=== PATIENT | female | born 1930 | race Two or more races ===

== ENCOUNTER 2018-01-06 11:06 | Inpatient (IN) | payer MEDICARE, MEDICAID ==
[2018-01-06] VITALS (8 sets, daily range): BP systolic 112–162; BP diastolic 43–102
[~2018-01-06] VITALS: Ht 157.5 cm; Wt 77.1 kg
[~2018-01-06 11:06] MED LIST: ACTONEL35 MG PO; ARICEPT10 MG PO; ASPIRIN-LOW81 MG PO; DIOVAN320 MG PO; NORVASC2.5 MG PO; PAROXETINE HCL20 MG PO; PRILOSEC20 MG PO; PRIMIDONE50 MG PO; TENORMIN50 MG PO; [UNRECOGNIZED DRUG - OTHER] PO
[2018-01-06] MEDS ORDERED: PRIMIDONE50 MG PO (11:13)
[2018-01-06] MEDS ORDERED: NORVASC2.5 MG ORAL (11:13)
[2018-01-06] MEDS ORDERED: ASPIR 8181 MG ORAL (11:13)
[2018-01-06] MEDS ORDERED: [UNRECOGNIZED DRUG - OTHER] PO (11:13)
[2018-01-06] MEDS ORDERED: DIOVAN320 MG ORAL (11:13)
[2018-01-06] MEDS ORDERED: ACTONEL35 MG ORAL (11:13)
[2018-01-06] MEDS ORDERED: PRILOSEC OTC20 MG ORAL (11:13)
[2018-01-06] MEDS ORDERED: ATENOLOL50 MG ORAL (11:13)
[2018-01-06] MEDS ORDERED: SYNTHROID50 MCG ORAL (11:13)
[2018-01-06] MEDS ORDERED: ARICEPT10 MG ORAL (11:13)
[2018-01-06] MEDS ORDERED: PAXIL20 MG ORAL (11:13)
[2018-01-06] MEDS ORDERED: Ipratropium 0.02% Inh Soln 2.5ml UD HHN ONE (11:15)
[2018-01-06] MEDS ORDERED: Solu-MEDROL 125mg Inj IVP ONE (11:15)
[2018-01-06] MEDS: Albuterol ud Inhalation HHN SCH ×5 (11:40→16:30)
--- NOTE | 2018-01-06 11:45 | Emergency Room Report ---
History of Present Illness General Chief Complaint: Dyspnea/Respdistress Source: Family Member, EMS Present Illness HPI The patient presents with dyspnea. She was in an adult daycare center and they heard wheezing. Paramedics started breathing treatments for his acute here all wheezing from the bedside. The patient has Alzheimer's disease. She denies any chest pain at this time. There is a language barrier. They're uncertain whether she has a history of congestive heart failure. According to the manager credit collections she has no fever or vomiting. History is limited because of functional decline. Family state she had an Echo last month which revealed no decreased cardiac function. Allergies: Coded Allergies: No Known Allergies (Unverified , 01/06/18) Patient History Limited by: medical condition Past Medical History: see triage record Social History: Denies: smoking Social History Narrative with family - assisted living Last Menstrual Period: Unk Reviewed Nursing Documentation: PMH: Agreed; PSxH: Agreed Nursing Documentation-PMH Hx Hypertension: Yes Hx Asthma: Yes Review of Systems All Other Systems: limited Physical Exam Vital Signs Date Time Temp Pulse Resp B/P (MAP) Pulse Ox O2 Delivery O2 Flow Rate FiO2 01/06/18 11:04 98.8 80 20 155/66 94 Room Air 98.8 01/06/18 11:06 2.0 Sp02 EP Interpretation: reviewed, normal General Appearance: no apparent distress, alert, Chronically Ill Head: normocephalic, atraumatic Eyes: bilateral eye normal inspection, bilateral eye PERRL ENT: moist mucus membranes Neck: supple Respiratory: respiratory distress - mild, accessory muscle use, wheezing, expiration, inspiration Cardiovascular #1: regular rate, rhythm Cardiovascular #2: 2+ radial (R) Gastrointestinal: normal inspection, non tender, no mass, non-distended, decreased bowel sounds Musculoskeletal: back normal, normal range of motion Neurologic: alert, motor strength/tone normal - generalized weakness, but accurate with hands, sensory intact Psychiatric: depressed affect Skin: normal inspection, warm/dry Procedures Critical Care Time Critical Care Time Total Critical Care Time: 45 min bedside evaluation and treatment excludes procedures (EKG). Reason for critical care: status asthmaticus and reassessment of respiratory status Possible complications: hypotension, hypertension, PR, shock, arrhythmias, metabolic acidosis, end organ damage, respiratory failure. Interventions: solumedrol, breathing treatments, BIPAP, determination level of care Course: Patient with dyspnea and wheezing. Aggressive treatment with solumedrol and breathing treatments. Still with resp distress. BIPAP begun. Some improvement. Magnesium given. Antibiotics begun. Discussion with family regarding level of care. ABG adequate for continued treatment. Consultations: nursing staff, EMS, family, RT, admitting MD Performed by: Dr. Mccrary Tolerated well condition = serious Medical Decision Making Diagnostic Impression: Primary Impression: Status asthmaticus Qualified Codes: J45.52 - Severe persistent asthma with status asthmaticus Additional Impressions: Dyspnea Qualified Codes: R06.03 - Acute respiratory distress Bronchospasm RLL pneumonia Qualified Codes: J18.1 - Lobar pneumonia, unspecified organism Hyponatremia UTI (urinary tract infection) Qualified Codes: N39.0 - Urinary tract infection, site not specified ER Course Patient presents with dyspnea and audible wheezing. Differential includes pneumonia, bronchospasm, cardiac asthma amongst others. Evaluation will be with EKG, chest x-ray and labs. The patient will be treated with a breathing treatments, Solu-Medrol. Initial EKG in the field did not show STEMI. Concern over possible cardiac asthma, judicious fluids. The patient received aggressive breathing treatments here. She still is working hard to breathe with wheezing. Because of this BiPAP is started. Antibiotics have been given also. EKG without injury. CXR with increased de oliveira c/w pneumonitis vs RLL infiltrate. Antibiotics begun. Labs with elevated WBC (min). Low sodium. Normal troponin, and lactic acid. BNP is minimally elevated. Patient improved on BIPAP now without respiratory distress. Magnesium ordered. ABG with good compensation. Discussed level of care with family as well as results. Admit SDU, Dr. Ruiz. Laboratory Tests Test 01/06/18 11:20 01/06/18 14:02 01/06/18 14:47 White Blood Count 11.1 K/UL (4.8-10.8) H Red Blood Count 3.96 M/UL (4.20-5.40) L Hemoglobin 10.7 G/DL (12.0-16.0) L Hematocrit 32.5 % (37.0-47.0) L Mean Corpuscular Volume 82 FL (80-99) Mean Corpuscular Hemoglobin 27.1 PG (27.0-31.0) Mean Corpuscular Hemoglobin Concent 33.0 G/DL (32.0-36.0) Red Cell Distribution Width 12.5 % (11.6-14.8) Platelet Count 66 K/UL (150-450) L Mean Platelet Volume 8.2 FL (6.5-10.1) Neutrophils (%) (Auto) % (45.0-75.0) Lymphocytes (%) (Auto) % (20.0-45.0) Monocytes (%) (Auto) % (1.0-10.0) Eosinophils (%) (Auto) % (0.0-3.0) Basophils (%) (Auto) % (0.0-2.0) Differential Total Cells Counted 100 Neutrophils % (Manual) 58 % (45-75) Lymphocytes % (Manual) 29 % (20-45) Monocytes % (Manual) 9 % (1-10) Eosinophils % (Manual) 4 % (0-3) H Basophils % (Manual) 0 % (0-2) Band Neutrophils 0 % (0-8) Platelet Estimate Decreased L Platelet Morphology Normal Hypochromasia 1+ Prothrombin Time 9.9 SEC (9.30-11.50) Prothrombin Time INR 1.0 (0.9-1.1) PTT 26 SEC (23-33) Sodium Level 129 MMOL/L (136-145) L Potassium Level 4.5 MMOL/L (3.5-5.1) Chloride Level 95 MMOL/L (98-107) L Carbon Dioxide Level 29 MMOL/L (21-32) Anion Gap 5 mmol/L (5-15) Blood Urea Nitrogen 20 mg/dL (7-18) H Creatinine 1.0 MG/DL (0.55-1.30) Estimate Glomerular Filtration Rate mL/min (>60) Glucose Level 173 MG/DL (74-106) H Lactic Acid Level 1.80 mmol/L (0.66-2.22) Calcium Level 8.8 MG/DL (8.5-10.1) Magnesium Level 1.8 MG/DL (1.5-2.4) Total Bilirubin 0.2 MG/DL (0.2-1.0) Aspartate Amino Transferase (AST) 17 U/L (15-37) Alanine Aminotransferase (ALT) 24 U/L (12-78) Alkaline Phosphatase 57 U/L (46-116) Total Creatine Kinase 49 U/L (26-308) Troponin I 0.000 ng/mL (0.000-0.056) Pro-B-Type Natriuretic Peptide 620 pg/mL (0-125) H Total Protein 8.0 G/DL (6.4-8.2) Albumin 3.5 G/DL (3.4-5.0) Globulin 4.5 g/dL Albumin/Globulin Ratio 0.8 (1.0-2.7) L Arterial Blood pH 7.367 (7.350-7.450) Arterial Blood Partial Pressure CO2 38.9 mmHg (35.0-45.0) Arterial Blood Partial Pressure O2 109.9 mmHg (75.0-100.0) H Arterial Blood HCO3 21.9 mmol/L (22.0-26.0) L Arterial Blood Oxygen Saturation 96.8 % (92.0-98.0) Arterial Blood Base Excess 3.2 Khari Test Positive Urine Color Pale yellow Urine Appearance Slightly cloudy Urine pH 5 (4.5-8.0) Urine Specific [place] 1.015 (1.005-1.035) Urine Protein 2+ (NEGATIVE) H Urine Glucose (UA) Negative (NEGATIVE) Urine Ketones Negative (NEGATIVE) Urine Occult Blood 2+ (NEGATIVE) H Urine Nitrite Negative (NEGATIVE) Urine Bilirubin Negative (NEGATIVE) Urine Urobilinogen Normal MG/DL (0.0-1.0) Urine Leukocyte Esterase 2+ (NEGATIVE) H Urine RBC 2-4 /HPF (0 - 2) H Urine WBC 10-15 /HPF (0 - 2) H Urine Squamous Epithelial Cells Many /LPF (NONE/OCC) H Urine Bacteria Many /HPF (NONE) H EKG Diagnostic Results Rate: normal Rhythm: NSR ST Segments: no acute changes - Nonspecific ST-T wave changes suggestive of ischemia no ST elevation meeting STEMI criteria Rhythm Strip Diag. Results EP Interpretation: yes Rhythm: NSR, no PVC's, no ectopy Chest X-Ray Diagnostic Results Chest X-Ray Diagnostic Results : Chest X-Ray Ordered: Yes # of Views/Limited/Complete: 1 View EP Interpretation: Yes Interpretation: no effusion, no pneumothorax, other - RLL infiltrate Impression: Other Electronically Signed by: Moise Mccrary MD Last Vital Signs Date Time Temp Pulse Resp B/P (MAP) Pulse Ox O2 Delivery O2 Flow Rate FiO2 01/06/18 17:10 88 25 99 Nasal 30 01/06/18 17:03 98.1 136/47 15.0 Status: improved Disposition: ADMITTED INPATIENT Condition: Serious Moise Mccrary M.D. January 06, 2018 11:45
[2018-01-06 11:50] LABS: HEMATOCRIT 32.5 % (37.0-47.0); HEMOGLOBIN 10.7 G/DL (12.0-16.0); MEAN CORPUSCULAR VOLUME 82 FL (80-99); PLATELET COUNT 66 K/UL (150-450); RED BLOOD COUNT 3.96 M/UL (4.20-5.40); RED CELL DISTRIBUTION WIDTH 12.5 % (11.6-14.8); WHITE BLOOD COUNT 11.1 K/UL (4.8-10.8)
[2018-01-06 11:56] LABS: ANION GAP 5 mmol/L (5-15); BLOOD UREA NITROGEN 20 mg/dL (7-18); CALCIUM 8.8 MG/DL (8.5-10.1); CARBON DIOXIDE 29 MMOL/L (21-32); CHLORIDE 95 MMOL/L (98-107); POTASSIUM 4.5 MMOL/L (3.5-5.1); SODIUM 129 MMOL/L (136-145)
[2018-01-06 12:12] LABS: ALANINE AMINOTRANSFERASE 24 U/L (12-78); ALBUMIN 3.5 G/DL (3.4-5.0); ALBUMIN/GLOBULIN RATIO 0.8 (1.0-2.7); ALKALINE PHOSPHATASE 57 U/L (46-116); ASPARTATE AMINO TRANSFERASE 17 U/L (15-37); BILIRUBIN,TOTAL 0.2 MG/DL (0.2-1.0); CREATINE KINASE 49 U/L (26-308)
[2018-01-06] MEDS ORDERED: cefTRIAXone 1 GM in NS 55 ML IVPB ONE (12:30)
[2018-01-06 15:02] LABS: BILIRUBIN, URINE NEGATIVE (NEGATIVE); COLOR,URINE PALE YELLOW; GLUCOSE, URINE (UA) NEGATIVE (NEGATIVE); KETONES,URINE NEGATIVE (NEGATIVE); LEUKOCYTE ESTERASE ,URINE 2+ (NEGATIVE); NITRITE,URINE NEGATIVE (NEGATIVE); PH,URINE 5 (4.5-8.0); PROTEIN,URINE 2+ (NEGATIVE); UROBILINOGEN,URINE NORMAL MG/DL (0.0-1.0)
[2018-01-06 15:16] LABS: APPEARANCE,URINE SLIGHTLY CLOUDY
[2018-01-06] MEDS ORDERED: LORazepam Inj 2mg/ml 1ml IV PRN (16:00)
[2018-01-06] MEDS ORDERED: Nitroglycerin Subl 0.4mg tab SL PRN (16:00)
[2018-01-06] MEDS ORDERED: Promethazine/Codeine 5ml UD ORAL PRN (16:00)
[2018-01-06] MEDS: Ipratropium 0.02% Inh Soln 2.5ml UD HHN SCH ×2 (16:15→16:30)
[2018-01-06] MEDS: Solu-MEDROL 125mg Inj IV SCH (18:00)
[2018-01-06] MEDS: Heparin 5000 units/ml inj SUBQ SCH (20:35)
[2018-01-07] VITALS (7 sets, daily range): BP systolic 100–158; BP diastolic 51–71
[2018-01-07] MEDS: Solu-MEDROL 125mg Inj IV SCH ×4 (00:36→18:21)
[2018-01-07 06:12] LABS: HEMATOCRIT 29.4 % (37.0-47.0); HEMOGLOBIN 9.8 G/DL (12.0-16.0); MEAN CORPUSCULAR VOLUME 81 FL (80-99); PLATELET COUNT 74 K/UL (150-450); RED BLOOD COUNT 3.62 M/UL (4.20-5.40); RED CELL DISTRIBUTION WIDTH 12.6 % (11.6-14.8); WHITE BLOOD COUNT 13.9 K/UL (4.8-10.8)
[2018-01-07 06:21] LABS: ALANINE AMINOTRANSFERASE 22 U/L (12-78); ALBUMIN 3.3 G/DL (3.4-5.0); ALBUMIN/GLOBULIN RATIO 0.8 (1.0-2.7); ALKALINE PHOSPHATASE 51 U/L (46-116); ANION GAP 4 mmol/L (5-15); ASPARTATE AMINO TRANSFERASE 21 U/L (15-37); BILIRUBIN,TOTAL 0.2 MG/DL (0.2-1.0); BLOOD UREA NITROGEN 22 mg/dL (7-18); CALCIUM 8.6 MG/DL (8.5-10.1); CARBON DIOXIDE 27 MMOL/L (21-32); CHLORIDE 97 MMOL/L (98-107); CREATININE 1.1 MG/DL (0.55-1.30); SODIUM 129 MMOL/L (136-145)
[2018-01-07 06:28] LABS: POTASSIUM 5.9 MMOL/L (3.5-5.1)
[2018-01-07] MEDS: Heparin 5000 units/ml inj SUBQ SCH ×2 (09:00→21:00)
[2018-01-07] MEDS ORDERED: Sodium Polystyrene Sulfonate 15gm Powder ORAL SCH (09:30)
[2018-01-07] MEDS: PARoxetine 20mg tab ORAL SCH (09:52)
[2018-01-07] MEDS: Donepezil 10mg tab ORAL SCH (09:52)
[2018-01-07] MEDS: Albuterol/Ipratropium 3ml neb HHN PRN ×2 (10:47→14:59)
--- NOTE | 2018-01-07 11:59 | Consultation ---
History of Present Illness General Date patient seen: January 07, 2018 Chief Complaint: Dyspnea/Respdistress Reason for Consultation: respiratory failure Present Illness HPI 87 year old female with hx of asthma, Hypertension, depression, dementia presented to ER with CC of dyspnea for a few days She was in an adult daycare center and they heard wheezing. Paramedics started breathing treatments. According to the occupational therapist's assistant she has no fever or vomiting. She was in respiratory failure on arrival and was started on BIPAP in ER. She received abx and steroids and was transferred to [facility] for further treatment. Allergies: Coded Allergies: No Known Allergies (Unverified , 01/06/18) Medication History Scheduled Amlodipine Besylate (Norvasc), 2.5 MG ORAL DAILY, (Reported) Aspirin* (Aspir 81*), 81 MG ORAL DAILY, (Reported) Atenolol* (Tenormin*), 50 MG ORAL DAILY, (Reported) Donepezil Hcl* (Aricept*), 10 MG ORAL DAILY, (Reported) Levothyroxine Sodium (Synthroid), 50 MCG ORAL DAILY, (Reported) Omeprazole Magnesium (Prilosec Otc), 30 MG ORAL DAILY, (Reported) Paroxetine Hcl* (Paxil*), 20 MG ORAL DAILY, (Reported) Primidone* (Mysoline*), 50 MG PO DAILY, (Reported) Risedronate Sodium (Actonel), 35 MG ORAL ONCE A WEEK, (Reported) Valsartan (Diovan), 320 MG ORAL DAILY, (Reported) [Ditopan Xl], 10 MG PO BEDTIME, (Reported) Patient History Healthcare decision maker Kristan Bolanos Resuscitation status Full Code Advanced Directive on File No Past Medical/Surgical History Past Medical/Surgical History: (1) History of asthma (2) Hypertension (3) Dementia (4) Depression Review of Systems All Other Systems: negative except mentioned in HPI Physical Exam General Appearance: WD/WN Lines, tubes and drains: peripheral HEENT: normocephalic, atraumatic Neck: non-tender, normal alignment Respiratory/Chest: chest wall non-tender, lungs clear Breasts: no masses Cardiovascular/Chest: normal peripheral pulses Abdomen: non tender Genitourinary/Rectal: normal genital exam Extremities: normal range of motion Last 24 Hour Vital Signs Date Time Temp Pulse Resp B/P (MAP) Pulse Ox O2 Delivery O2 Flow Rate FiO2 01/07/18 10:57 96 21 99 Nasal Cannula 2.0 28 01/07/18 10:47 63 21 99 Nasal Cannula 2.0 28 01/07/18 10:45 63 21 98 Facial 30 01/07/18 09:53 78 120/55 01/07/18 09:00 87 120/66 01/07/18 08:37 80 24 99 Facial 30 01/07/18 08:00 97.7 67 21 100/51 100 Bi-pap 30 97.7 25 01/07/18 08:00 61 01/07/18 07:05 78 16 97 Facial 30 01/07/18 05:25 81 22 98 Facial 30 01/07/18 04:00 98.1 79 20 137/66 98 Bi-pap 30 98.1 25 01/07/18 04:00 66 01/07/18 03:02 88 17 97 Facial 30 01/07/18 00:57 81 32 97 Facial 30 01/07/18 00:00 98.4 79 20 112/63 99 Bi-pap 30 98.4 22 01/07/18 00:00 61 01/06/18 21:19 162/94 01/06/18 21:00 142/85 01/06/18 20:00 77 01/06/18 20:00 97.9 77 20 162/98 97 Bi-pap 30 97.9 01/06/18 17:10 88 25 99 Nasal 30 01/06/18 17:03 98.1 82 22 136/47 100 Non-Rebreather 15.0 01/06/18 16:49 97.2 88 22 146/61 99 Bi-pap 30 97.2 01/06/18 15:40 98.2 84 20 132/45 99 Bi-pap 2.0 30 98.2 01/06/18 15:01 83 18 98 Nasal 30 01/06/18 14:00 97 20 112/51 99 Bi-pap 2.0 30 01/06/18 13:57 30 01/06/18 13:53 99 21 99 Nasal 30 01/06/18 13:53 99 21 Bi-pap 30 01/06/18 13:09 99 27 99 Nasal Cannula 2.0 28 01/06/18 13:00 98.0 96 19 138/43 99 Nasal Cannula 2.0 28 98.0 01/06/18 12:35 79 19 99 Nasal Cannula 2.0 28 01/06/18 12:32 79 19 99 Nasal Cannula 2.0 28 01/06/18 12:05 80 23 100 Nasal Cannula 2.0 28 01/06/18 12:00 80 23 100 Nasal Cannula 01/06/18 12:00 80 22 149/43 100 Nasal Cannula 2.0 28 01/06/18 11:50 81 29 Nasal Cannula 2.0 28 01/06/18 11:47 71 29 Nasal Cannula 2.0 28 01/06/18 11:44 81 29 98 Nasal Cannula 2.0 28 Intake and Output 01/06/18 01/07/18 19:00 07:00 Intake Total 305 ml Balance 305 ml Intake Oral 0 ml IV Total 305 ml # Voids 1 2 Laboratory Tests Test 01/06/18 14:02 01/06/18 14:47 01/07/18 05:25 Arterial Blood pH 7.367 (7.350-7.450) Arterial Blood Partial Pressure CO2 38.9 mmHg (35.0-45.0) Arterial Blood Partial Pressure O2 109.9 mmHg (75.0-100.0) H Arterial Blood HCO3 21.9 mmol/L (22.0-26.0) L Arterial Blood Oxygen Saturation 96.8 % (92.0-98.0) Arterial Blood Base Excess 3.2 Khari Test Positive Urine Color Pale yellow Urine Appearance Slightly cloudy Urine pH 5 (4.5-8.0) Urine Specific [place] 1.015 (1.005-1.035) Urine Protein 2+ (NEGATIVE) H Urine Glucose (UA) Negative (NEGATIVE) Urine Ketones Negative (NEGATIVE) Urine Occult Blood 2+ (NEGATIVE) H Urine Nitrite Negative (NEGATIVE) Urine Bilirubin Negative (NEGATIVE) Urine Urobilinogen Normal MG/DL (0.0-1.0) Urine Leukocyte Esterase 2+ (NEGATIVE) H Urine RBC 2-4 /HPF (0 - 2) H Urine WBC 10-15 /HPF (0 - 2) H Urine Squamous Epithelial Cells Many /LPF (NONE/OCC) H Urine Bacteria Many /HPF (NONE) H White Blood Count 13.9 K/UL (4.8-10.8) H Red Blood Count 3.62 M/UL (4.20-5.40) L Hemoglobin 9.8 G/DL (12.0-16.0) L Hematocrit 29.4 % (37.0-47.0) L Mean Corpuscular Volume 81 FL (80-99) Mean Corpuscular Hemoglobin 27.1 PG (27.0-31.0) Mean Corpuscular Hemoglobin Concent 33.4 G/DL (32.0-36.0) Red Cell Distribution Width 12.6 % (11.6-14.8) Platelet Count 74 K/UL (150-450) L Mean Platelet Volume 9.3 FL (6.5-10.1) Neutrophils (%) (Auto) % (45.0-75.0) Lymphocytes (%) (Auto) % (20.0-45.0) Monocytes (%) (Auto) % (1.0-10.0) Eosinophils (%) (Auto) % (0.0-3.0) Basophils (%) (Auto) % (0.0-2.0) Differential Total Cells Counted 100 Neutrophils % (Manual) 93 % (45-75) H Lymphocytes % (Manual) 6 % (20-45) L Monocytes % (Manual) 1 % (1-10) Eosinophils % (Manual) 0 % (0-3) Basophils % (Manual) 0 % (0-2) Band Neutrophils 0 % (0-8) Platelet Estimate Decreased L Platelet Morphology Normal Hypochromasia 3+ Anisocytosis 1+ Sodium Level 129 MMOL/L (136-145) L Potassium Level 5.9 MMOL/L (3.5-5.1) H Chloride Level 97 MMOL/L (98-107) L Carbon Dioxide Level 27 MMOL/L (21-32) Anion Gap 4 mmol/L (5-15) L Blood Urea Nitrogen 22 mg/dL (7-18) H Creatinine 1.1 MG/DL (0.55-1.30) Estimat Glomerular Filtration Rate mL/min (>60) Glucose Level 153 MG/DL (74-106) H Calcium Level 8.6 MG/DL (8.5-10.1) Total Bilirubin 0.2 MG/DL (0.2-1.0) Aspartate Amino Transf (AST/SGOT) 21 U/L (15-37) Alanine Aminotransferase (ALT/SGPT) 22 U/L (12-78) Alkaline Phosphatase 51 U/L (46-116) Total Protein 7.6 G/DL (6.4-8.2) Albumin 3.3 G/DL (3.4-5.0) L Globulin 4.3 g/dL Albumin/Globulin Ratio 0.8 (1.0-2.7) L Microbiology Date/Time Source Procedure Growth Status 01/06/18 14:47 Urine,Clean Catch Urine Culture - Preliminary NO GROWTH Resulted Height (Feet): 5 Height (Inches): 2.00 Weight (Pounds): 150 Medications Current Medications Medications (Trade) Dose Ordered Sig/Marce Route PRN Reason Start Time Stop Time Status Last Admin Dose Admin Acetaminophen (Tylenol) 650 mg Q4H PRN ORAL fever 01/06/18 16:00 02/05/18 15:59 Albuterol/ Ipratropium (Albuterol/ Ipratropium) 3 ml Q4H PRN HHN dyspnea 01/06/18 16:00 01/11/18 15:59 01/07/18 10:47 Amlodipine Besylate (Norvasc) 5 mg TID ORAL 01/07/18 09:00 02/06/18 08:59 Clonidine HCl (Catapres Tab) 0.1 mg Q4H PRN ORAL sbp more than 160 01/06/18 16:00 02/05/18 15:59 01/06/18 21:19 Dextrose (Dextrose 50%) STAT PRN IV Hypoglycemia 01/06/18 16:00 02/05/18 15:59 Donepezil HCl (Aricept) 10 mg DAILY ORAL 01/07/18 09:00 02/06/18 08:59 01/07/18 09:52 Heparin Sodium (Porcine) (Heparin 5000 units/ml) 5,000 units EVERY 12 HOURS SUBQ 01/06/18 21:00 02/05/18 20:59 Levofloxacin 100 ml @ 100 mls/hr Q24H IVPB 01/07/18 12:00 01/14/18 11:59 Levothyroxine Sodium (Synthroid) 50 mcg ACBREAKFAST ORAL 01/07/18 06:30 02/06/18 06:29 01/07/18 05:38 Lorazepam (Ativan 2mg/ml 1ml) 0.5 mg Q4H PRN IV For Anxiety 01/06/18 16:00 01/13/18 15:59 Methylprednisolone Sodium Succinate (Solu-MEDROL) 60 mg EVERY 6 HOURS IV 01/06/18 18:00 02/05/18 17:59 01/07/18 05:38 Nitroglycerin (Ntg) 0.4 mg Q5M X 3 DOSES PRN SL Prn Chest Pain 01/06/18 16:00 02/05/18 15:59 Ondansetron HCl (Zofran) 4 mg Q6H PRN IVP Nausea & Vomiting 01/06/18 16:00 02/05/18 15:59 Paroxetine HCl (Paxil) 20 mg DAILY ORAL 01/07/18 09:00 02/06/18 08:59 01/07/18 09:52 Primidone (Mysoline) 50 mg DAILY ORAL 01/07/18 09:00 02/06/18 08:59 01/07/18 09:54 Promethazine HCl/ Codeine (Phenergan with Codeine) 5 ml Q6H PRN ORAL cough 01/06/18 16:00 02/05/18 15:59 Temazepam (Restoril) 15 mg HSPRN PRN ORAL Insomnia 01/06/18 16:00 01/13/18 15:59 01/06/18 20:35 Assessment/Plan Problem List: (1) Acute respiratory failure ICD Codes: J96.00 - Acute respiratory failure, unspecified whether with hypoxia or hypercapnia SNOMED: 51544601 (2) Status asthmaticus ICD Codes: J45.902 - Unspecified asthma with status asthmaticus SNOMED: 741905593 Qualifiers: Qualified Codes: J45.52 - Severe persistent asthma with status asthmaticus (3) Depression ICD Codes: F32.9 - Major depressive disorder, single episode, unspecified SNOMED: 65064891 (4) Hypertension ICD Codes: I10 - Essential (primary) hypertension SNOMED: 04657352 (5) History of asthma ICD Codes: Z87.09 - Personal history of other diseases of the respiratory system SNOMED: 860340429 (6) Dementia ICD Codes: F03.90 - Unspecified dementia without behavioral disturbance SNOMED: 51126182 Assessment/Plan respiratory treatment check sputum titrate bipap check electrolytes iv steroids iv abx cxr and bnp in am echocardiogram Yeyo Moon MD January 07, 2018 11:58
--- NOTE | 2018-01-07 14:14 | General Progress Note ---
Progress Note Progress Note [id number] full consult dictated Laverne Kim MD January 07, 2018 14:14
[2018-01-07] MEDS: Albuterol/Ipratropium 3ml neb HHN SCH ×2 (16:00→22:56)
--- NOTE | 2018-01-07 18:50 | Cardiology Report ---
APPROVED REPORT EXAM: Two-dimensional and M-mode echocardiogram with Doppler and color Doppler. INDICATION LV FUNCTION M-Mode DIMENSIONS IVSd1.6 (0.7-1.1cm)Left Atrium (MM)3.3 (1.6-4.0cm) LVDd4.8 (3.5-5.6cm)Aortic Root3.0 (2.0-3.7cm) PWd1.1 (0.7-1.1cm)Aortic Cusp Exc.1.4 (1.5-2.0cm) IVSs1.9 cm LVDs3.2 (2.5-4.0cm) PWs1.5 cm Technically difficult study due to poor parasternal acoustical windows. Normal left ventricular chamber size, systolic function and wall motion to extent visualized. Left ventricular ejection fraction estimated to be 60%. No evidence of left ventricular hypertrophy . All other cardiac chamber sizes are within normal limits. Focal aortic valve sclerosis with adequate cusp excursion. Thickened mitral valve leaflets with normal excursion. Mitral annulus and aortic root calcification. Pulmonic valve not well visualized. Normal tricuspid valve structure. IVC at normal size with physiologic collapse. A color flow and spectral Doppler study was performed and revealed: Mild aortic insufficiency . Mild mitral regurgitation . Mild tricuspid regurgitation. Normal left ventricular diastolic function . Tricuspid systolic velocities suggests peak right ventricular systolic pressure of 49 mmHg, consistent with moderate pulmonary hypertension.
--- NOTE | 2018-01-07 18:53 | Cardiology Report ---
APPROVED REPORT EKG Measurement Heart [id number] Normal sinus rhythm Possible Left atrial enlargement Left ventricular hypertrophy with repolarization abnormality Cannot rule out Septal infarct, age undetermined Abnormal ECG
--- NOTE | 2018-01-07 19:22 | Consultation ---
Consult Note Consult Note NEUROLOGY CONSULTATION: Full note dictated #[id number] 87 y/o, RH, CF with PH of HTN, GERD, ET, Asthma, breast cancer and dementia. She was at her day care this morning and became short of breath and started to wheeze. For the last few days she has had a cough productive of sputum. She was thus hospitalized for status asthmaticus. I was called in to evaluate and manage an alteration in her MS. ON EXAM: Problems with orientation, memory, VSF, HCF. Globally diminished DTRs 7-8 Hz tremor. Unable to test stance and gait. IMPRESSION: Underlying dementia with superadded encephalopathy. Encephalopathy due to infection - pulmonary+UTI REC: Rx of acute infectious processes. Continue other Rx Observe. Kamaljit Shea M.D., M.S.P.H. KAMALJIT SHEA January 07, 2018 19:22
--- NOTE | 2018-01-07 19:27 | Cardiology Progress Note ---
Assessment/Plan Assessment/Plan The patient is seen and examined, full consult note will be dictated shortly. Objective Last 24 Hour Vital Signs Date Time Temp Pulse Resp B/P (MAP) Pulse Ox O2 Delivery O2 Flow Rate FiO2 01/07/18 19:02 79 19 99 Bi-pap 30 01/07/18 18:55 74 21 98 Facial 30 01/07/18 18:54 76 21 98 Bi-pap 30 01/07/18 18:21 65 130/60 01/07/18 16:50 68 16 100 Facial 30 01/07/18 16:00 98.6 69 22 130/56 98 Bi-pap 30 98.6 69 01/07/18 16:00 72 01/07/18 15:09 89 20 99 Bi-pap 30 01/07/18 14:59 89 20 98 Bi-pap 30 01/07/18 14:57 89 19 98 Facial 30 01/07/18 13:17 73 20 98 01/07/18 13:10 88 146/72 01/07/18 12:00 70 01/07/18 12:00 98.1 87 21 146/71 96 Venturi Mask 30 98.1 87 01/07/18 10:58 65 21 100 01/07/18 10:57 96 21 99 Bi-pap 30 01/07/18 10:47 63 21 99 Bi-pap 30 01/07/18 10:45 63 21 98 Facial 30 01/07/18 09:53 78 120/55 01/07/18 09:00 87 120/66 01/07/18 08:37 80 24 99 Facial 30 01/07/18 08:00 97.7 67 21 100/51 100 Bi-pap 30 97.7 25 01/07/18 08:00 61 01/07/18 07:05 78 16 97 Facial 30 01/07/18 05:25 81 22 98 Facial 30 01/07/18 04:00 98.1 79 20 137/66 98 Bi-pap 30 98.1 25 01/07/18 04:00 66 01/07/18 03:02 88 17 97 Facial 30 01/07/18 00:57 81 32 97 Facial 30 01/07/18 00:00 98.4 79 20 112/63 99 Bi-pap 30 98.4 22 01/07/18 00:00 61 01/06/18 21:19 162/94 01/06/18 21:00 142/85 01/06/18 20:00 77 01/06/18 20:00 97.9 77 20 162/98 97 Bi-pap 30 97.9 Intake and Output 01/06/18 01/07/18 19:00 07:00 Intake Total 305 ml Balance 305 ml Intake Oral 0 ml IV Total 305 ml # Voids 1 2 Laboratory Tests Test 01/07/18 05:25 White Blood Count 13.9 K/UL (4.8-10.8) H Red Blood Count 3.62 M/UL (4.20-5.40) L Hemoglobin 9.8 G/DL (12.0-16.0) L Hematocrit 29.4 % (37.0-47.0) L Mean Corpuscular Volume 81 FL (80-99) Mean Corpuscular Hemoglobin 27.1 PG (27.0-31.0) Mean Corpuscular Hemoglobin Concent 33.4 G/DL (32.0-36.0) Red Cell Distribution Width 12.6 % (11.6-14.8) Platelet Count 74 K/UL (150-450) L Mean Platelet Volume 9.3 FL (6.5-10.1) Neutrophils (%) (Auto) % (45.0-75.0) Lymphocytes (%) (Auto) % (20.0-45.0) Monocytes (%) (Auto) % (1.0-10.0) Eosinophils (%) (Auto) % (0.0-3.0) Basophils (%) (Auto) % (0.0-2.0) Differential Total Cells Counted 100 Neutrophils % (Manual) 93 % (45-75) H Lymphocytes % (Manual) 6 % (20-45) L Monocytes % (Manual) 1 % (1-10) Eosinophils % (Manual) 0 % (0-3) Basophils % (Manual) 0 % (0-2) Band Neutrophils 0 % (0-8) Platelet Estimate Decreased L Platelet Morphology Normal Hypochromasia 3+ Anisocytosis 1+ Sodium Level 129 MMOL/L (136-145) L Potassium Level 5.9 MMOL/L (3.5-5.1) H Chloride Level 97 MMOL/L (98-107) L Carbon Dioxide Level 27 MMOL/L (21-32) Anion Gap 4 mmol/L (5-15) L Blood Urea Nitrogen 22 mg/dL (7-18) H Creatinine 1.1 MG/DL (0.55-1.30) Estimat Glomerular Filtration Rate mL/min (>60) Glucose Level 153 MG/DL (74-106) H Calcium Level 8.6 MG/DL (8.5-10.1) Ferritin 24 NG/ML (8-388) Total Bilirubin 0.2 MG/DL (0.2-1.0) Aspartate Amino Transf (AST/SGOT) 21 U/L (15-37) Alanine Aminotransferase (ALT/SGPT) 22 U/L (12-78) Alkaline Phosphatase 51 U/L (46-116) Total Protein 7.6 G/DL (6.4-8.2) Albumin 3.3 G/DL (3.4-5.0) L Globulin 4.3 g/dL Albumin/Globulin Ratio 0.8 (1.0-2.7) L HIV (1&2) Antibody Rapid Negative (NEGATIVE) Microbiology Date/Time Source Procedure Growth Status 01/06/18 14:47 Urine,Clean Catch Urine Culture - Preliminary NO GROWTH Resulted Westley Canchola MD January 07, 2018 19:27
[2018-01-08] MEDS: Solu-MEDROL 125mg Inj IV SCH ×2 (00:23→05:51)
[2018-01-08] MEDS: Albuterol/Ipratropium 3ml neb HHN SCH ×7 (03:02→22:47)
[2018-01-08 04:00] VITALS: BP 146/58
[2018-01-08 06:14] LABS: HEMATOCRIT 27.4 % (37.0-47.0); MEAN CORPUSCULAR VOLUME 82 FL (80-99); PLATELET COUNT 101 K/UL (150-450); RED BLOOD COUNT 3.34 M/UL (4.20-5.40); RED CELL DISTRIBUTION WIDTH 12.8 % (11.6-14.8); WHITE BLOOD COUNT 13.3 K/UL (4.8-10.8)
[2018-01-08 06:39] LABS: ALANINE AMINOTRANSFERASE 23 U/L (12-78); ALBUMIN 3.3 G/DL (3.4-5.0); ALBUMIN/GLOBULIN RATIO 0.8 (1.0-2.7); ALKALINE PHOSPHATASE 45 U/L (46-116); ANION GAP 8 mmol/L (5-15); ASPARTATE AMINO TRANSFERASE 23 U/L (15-37); BILIRUBIN,TOTAL 0.2 MG/DL (0.2-1.0); BLOOD UREA NITROGEN 26 mg/dL (7-18); CALCIUM 8.5 MG/DL (8.5-10.1); CARBON DIOXIDE 27 MMOL/L (21-32); CHLORIDE 96 MMOL/L (98-107); LACTATE DEHYDROGENASE 150 U/L (81-234); POTASSIUM 4.3 MMOL/L (3.5-5.1); SODIUM 131 MMOL/L (136-145)
[2018-01-08 07:23] LABS: % IRON SATURATION 9 % (15-50); IRON 29 ug/dL (50-175); TOTAL IRON BINDING CAPACITY 318 ug/dL (250-450)
--- NOTE | 2018-01-08 07:53 | Nephrology Progress Note ---
Assessment/Plan Assessment 1.isovolemic hyponatremia 2..hyperkalemia 3.elevated bun due to steroid 4.asthma exace 4.PNA Plan low k diet free water restriction monitoring renal function avoid NSAID Replace electrolyte as need it Subjective Constitutional: Reports: malaise, weakness HEENT: Reports: no symptoms Genitourinary: Reports: no symptoms Neurologic/Psychiatric: Reports: no symptoms Subjective alert and awake her wheezing has significantly improved feeling better today Objective Objective Last 24 Hour Vital Signs Date Time Temp Pulse Resp B/P (MAP) Pulse Ox O2 Delivery O2 Flow Rate FiO2 01/08/18 07:16 62 16 99 Venturi Mask 30 01/08/18 07:08 65 20 99 Bi-pap 30 01/08/18 07:08 65 20 Bi-pap 30 01/08/18 07:08 65 20 99 Facial 30 01/08/18 05:29 71 17 98 Facial 30 01/08/18 04:00 74 01/08/18 04:00 98.1 76 12 146/58 98 Bi-pap 30 98.1 76 01/08/18 03:10 71 14 99 Bi-pap 30 01/08/18 03:03 69 16 99 Bi-pap 30 01/08/18 02:35 87 19 99 Facial 30 01/08/18 01:07 73 16 96 Facial 30 01/08/18 00:00 67 01/07/18 23:58 97.5 71 15 158/65 98 Bi-pap 30 97.5 71 01/07/18 23:18 76 18 98 Bi-pap 30 01/07/18 22:57 86 18 97 Bi-pap 30 01/07/18 22:50 77 18 98 Facial 30 01/07/18 20:49 76 17 97 Facial 30 01/07/18 20:00 82 01/07/18 20:00 97.5 105 20 145/63 92 Bi-pap 30 97.5 105 01/07/18 19:02 79 19 99 Bi-pap 30 01/07/18 18:55 74 21 98 Facial 30 01/07/18 18:54 76 21 98 Bi-pap 30 01/07/18 18:21 65 130/60 01/07/18 16:50 68 16 100 Facial 30 01/07/18 16:00 98.6 69 22 130/56 98 Bi-pap 30 98.6 69 01/07/18 16:00 72 01/07/18 15:09 89 20 99 Bi-pap 30 01/07/18 14:59 89 20 98 Bi-pap 30 01/07/18 14:57 89 19 98 Facial 30 01/07/18 13:17 73 20 98 01/07/18 13:10 88 146/72 01/07/18 12:00 70 01/07/18 12:00 98.1 87 21 146/71 96 Venturi Mask 30 98.1 87 01/07/18 10:58 65 21 100 01/07/18 10:57 96 21 99 Bi-pap 30 01/07/18 10:47 63 21 99 Bi-pap 30 01/07/18 10:45 63 21 98 Facial 30 01/07/18 09:53 78 120/55 01/07/18 09:00 87 120/66 01/07/18 08:37 80 24 99 Facial 30 01/07/18 08:00 97.7 67 21 100/51 100 Bi-pap 30 97.7 25 01/07/18 08:00 61 Intake and Output 01/07/18 01/08/18 19:00 07:00 Output Total 2 ml 510 ml Balance -2 ml -510 ml Output Urine Total 500 ml Stool Total 2 ml 10 ml # Voids 5 2 # Bowel Movements 2 Laboratory Tests 01/07/18 19:30: Urine Random Total Protein 17H, Urine Random Sodium < 10L, Urine Creatinine 63.4 , Urine Potassium Timed 40, Stool Occult Blood [Pending] 01/08/18 05:00: White Blood Count 13.3H, Red Blood Count 3.34L, Hemoglobin 9.0L, Hematocrit 27.4L, Mean Corpuscular Volume 82, Mean Corpuscular Hemoglobin 26.9L, Mean Corpuscular Hemoglobin Concent 32.7, Red Cell Distribution Width 12.8, Platelet Count 101L, Mean Platelet Volume 7.3, Neutrophils (%) (Auto) , Lymphocytes (%) ( Auto) , Monocytes (%) (Auto) , Eosinophils (%) (Auto) , Basophils (%) (Auto) , Neutrophils % (Manual) [Pending], Lymphocytes % (Manual) [Pending], Platelet Estimate [Pending], Platelet Morphology [Pending], Erythrocyte Sedimentation Rate [Pending], Reticulocyte Count [Pending], Prothrombin Time 10.4, Prothromb Time International Ratio 1.0, Activated Partial Thromboplast Time 26, Sodium Level 131L, Potassium Level 4.3, Chloride Level 96L, Carbon Dioxide Level 27, Anion Gap 8, Blood Urea Nitrogen 26H, Creatinine 1.0, Estimat Glomerular Filtration Rate , Glucose Level 154H, Calcium Level 8.5, Iron Level 29L, Total Iron Binding Capacity 318, Percent Iron Saturation 9L, Unsaturated Iron Binding 289, Total Bilirubin 0.2, Aspartate Amino Transf (AST/SGOT) 23, Alanine Aminotransferase (ALT/SGPT) 23, Alkaline Phosphatase 45L, Lactate Dehydrogenase 150, Pro-B-Type Natriuretic Peptide 1845H, Total Protein 7.4, Albumin 3.3L, Globulin 4.1, Albumin/Globulin Ratio 0.8L, Carcinoembryonic Antigen [Pending], Vitamin B12 Level 497, Folate 14.8, Hepatitis A IgM Antibody [Pending], Hepatitis B Surface Antigen [Pending], Hepatitis B Core IgM Antibody [Pending], Hepatitis C Antibody [Pending] Height (Feet): 5 Height (Inches): 2.00 Weight (Pounds): 150 Objective Head: normocephalic, atraumatic Eyes: bilateral eye normal inspection, bilateral eye PERRL ENT: moist mucus membranes Neck: supple Respiratory: respiratory distress - mild, accessory muscle use, wheezing, expiration, inspiration Cardiovascular #1: regular rate, rhythm Cardiovascular #2: 2+ radial (R) Gastrointestinal: normal inspection, non tender, no mass, non-distended, decreased bowel sounds Musculoskeletal: back normal, normal range of motion Neurologic: alert, motor strength/tone normal - generalized weakness, but accurate with hands, sensory intact Psychiatric: depressed affect Skin: normal inspection, warm/Laverne Tirado MD January 08, 2018 07:53
[2018-01-08 08:00] VITALS: BP 143/51
--- NOTE | 2018-01-08 08:42 | General Progress Note ---
Assessment/Plan Assessment/Plan # Thrombocytopenia -- workup has included hepatitis, hiv panel and us of the abdomen --> transfuse to plt above 20k # Anemia of iron deficiency -- workup has been ordered including ferritin, tibc , b12, folate, tsh --> maintain hgb above 7, workup if any evidence for hemolysis --> started on iv iron 100mg x 5 days # Breast cancer history -- prior history unknown, imaging historically has been reviewed --> is not on any anti-hormonal drugs, obtain further history from family # HTN # GERD # Asthma # Dementia. Subjective Constitutional: Denies: no symptoms, chills, diaphoresis, fever, malaise, weakness, other HEENT: Denies: no symptoms, eye pain, blurred vision, tearing, double vision, ear pain, ear discharge, nose pain, nose congestion, throat pain, throat swelling, mouth pain, mouth swelling, other Cardiovascular: Denies: no symptoms, chest pain, edema, irregular heart rate, lightheadedness, palpitations, syncope, other Respiratory: Denies: no symptoms, cough, orthopnea, shortness of breath, SOB with excertion, SOB at rest, sputum, stridor, wheezing, other Gastrointestinal/Abdominal: Denies: no symptoms, abdomen distended, abdominal pain, black stools, tarry stools, blood in stool, constipated, diarrhea, difficulty swallowing, nausea, poor appetite, poor fluid intake, rectal bleeding , vomiting, other Genitourinary: Denies: no symptoms, burning, discharge, frequency, flank pain, hematuria, incontinence, pain, urgency, other Neurologic/Psychiatric: Denies: no symptoms, anxiety, depressed, emotional problems, headache, numbness, paresthesia, pre-existing deficit, seizure, tingling, tremors, weakness, other Endocrine: Denies: no symptoms, excessive sweating, flushing, intolerance to cold, intolerance to heat, increased hunger, increased thirst, increased urine, unexplained weight gain, unexplained weight loss, other Hematologic/Lymphatic: Denies: no symptoms, anemia, easy bleeding, easy bruising, other Allergies: Coded Allergies: No Known Allergies (Verified , 06/07/09) Subjective no events, on nc, sleeping Objective Last 24 Hour Vital Signs Date Time Temp Pulse Resp B/P (MAP) Pulse Ox O2 Delivery O2 Flow Rate FiO2 01/08/18 07:16 62 16 99 Venturi Mask 30 01/08/18 07:08 65 20 99 Bi-pap 30 01/08/18 07:08 65 20 Bi-pap 30 01/08/18 07:08 65 20 99 Facial 30 01/08/18 05:29 71 17 98 Facial 30 01/08/18 04:00 74 01/08/18 04:00 98.1 76 12 146/58 98 Bi-pap 30 98.1 76 01/08/18 03:10 71 14 99 Bi-pap 30 01/08/18 03:03 69 16 99 Bi-pap 30 01/08/18 02:35 87 19 99 Facial 30 01/08/18 01:07 73 16 96 Facial 30 01/08/18 00:00 67 01/07/18 23:58 97.5 71 15 158/65 98 Bi-pap 30 97.5 71 01/07/18 23:18 76 18 98 Bi-pap 30 01/07/18 22:57 86 18 97 Bi-pap 30 01/07/18 22:50 77 18 98 Facial 30 01/07/18 20:49 76 17 97 Facial 30 01/07/18 20:00 82 01/07/18 20:00 97.5 105 20 145/63 92 Bi-pap 30 97.5 105 01/07/18 19:02 79 19 99 Bi-pap 30 01/07/18 18:55 74 21 98 Facial 30 01/07/18 18:54 76 21 98 Bi-pap 30 01/07/18 18:21 65 130/60 01/07/18 16:50 68 16 100 Facial 30 01/07/18 16:00 98.6 69 22 130/56 98 Bi-pap 30 98.6 69 01/07/18 16:00 72 01/07/18 15:09 89 20 99 Bi-pap 30 01/07/18 14:59 89 20 98 Bi-pap 30 01/07/18 14:57 89 19 98 Facial 30 01/07/18 13:17 73 20 98 01/07/18 13:10 88 146/72 01/07/18 12:00 70 01/07/18 12:00 98.1 87 21 146/71 96 Venturi Mask 30 98.1 87 01/07/18 10:58 65 21 100 01/07/18 10:57 96 21 99 Bi-pap 30 01/07/18 10:47 63 21 99 Bi-pap 30 01/07/18 10:45 63 21 98 Facial 30 01/07/18 09:53 78 120/55 01/07/18 09:00 87 120/66 Intake and Output 01/07/18 01/08/18 19:00 07:00 Output Total 2 ml 510 ml Balance -2 ml -510 ml Output Urine Total 500 ml Stool Total 2 ml 10 ml # Voids 5 2 # Bowel Movements 2 Laboratory Tests 01/07/18 19:30: Urine Random Total Protein 17H, Urine Random Sodium < 10L, Urine Creatinine 63.4 , Urine Potassium Timed 40, Stool Occult Blood [Pending] 01/08/18 05:00: White Blood Count 13.3H, Red Blood Count 3.34L, Hemoglobin 9.0L, Hematocrit 27.4L, Mean Corpuscular Volume 82, Mean Corpuscular Hemoglobin 26.9L, Mean Corpuscular Hemoglobin Concent 32.7, Red Cell Distribution Width 12.8, Platelet Count 101L, Mean Platelet Volume 7.3, Neutrophils (%) (Auto) , Lymphocytes (%) ( Auto) , Monocytes (%) (Auto) , Eosinophils (%) (Auto) , Basophils (%) (Auto) , Neutrophils % (Manual) [Pending], Lymphocytes % (Manual) [Pending], Platelet Estimate [Pending], Platelet Morphology [Pending], Erythrocyte Sedimentation Rate 60H, Reticulocyte Count [Pending], Prothrombin Time 10.4, Prothromb Time International Ratio 1.0, Activated Partial Thromboplast Time 26, Sodium Level 131L, Potassium Level 4.3, Chloride Level 96L, Carbon Dioxide Level 27, Anion Gap 8, Blood Urea Nitrogen 26H, Creatinine 1.0, Estimat Glomerular Filtration Rate , Glucose Level 154H, Calcium Level 8.5, Iron Level 29L, Total Iron Binding Capacity 318, Percent Iron Saturation 9L, Unsaturated Iron Binding 289, Total Bilirubin 0.2, Aspartate Amino Transf (AST/SGOT) 23, Alanine Aminotransferase (ALT/SGPT) 23, Alkaline Phosphatase 45L, Lactate Dehydrogenase 150, Pro-B-Type Natriuretic Peptide 1845H, Total Protein 7.4, Albumin 3.3L, Globulin 4.1, Albumin/Globulin Ratio 0.8L, Carcinoembryonic Antigen [Pending], Vitamin B12 Level 497, Folate 14.8, Hepatitis A IgM Antibody [Pending], Hepatitis B Surface Antigen [Pending], Hepatitis B Core IgM Antibody [Pending], Hepatitis C Antibody [Pending] Height (Feet): 5 Height (Inches): 2.00 Weight (Pounds): 150 General Appearance: no apparent distress EENT: TMs normal Neck: normal alignment Cardiovascular: normal rate Respiratory/Chest: lungs clear Abdomen: normal bowel sounds Pelvis: normal rectal exam Genitourinary/Rectal: heme negative stool Extremities: non-tender Edema: 1+ Leg (L), 1+ Leg (R) Edema: mild edema Neurologic: alert Skin: warm/dry Ramez Alonzo MD January 08, 2018 08:42
[2018-01-08] MEDS: Heparin 5000 units/ml inj SUBQ SCH ×2 (09:00→21:00)
[2018-01-08] MEDS: PARoxetine 20mg tab ORAL SCH (09:15)
[2018-01-08] MEDS: Donepezil 10mg tab ORAL SCH (09:15)
--- NOTE | 2018-01-08 09:15 | Diagnostic Imaging Report ---
Indication: Shortness of breath Technique: One view of the chest Comparison: 09/12/2012 Findings: No definite acute infiltrates, effusions, or congestion. Normal heart size. Tortuous calcified aorta. Central bronchial wall thickening is likely on the basis of senescent changes. Impression: No definite acute process
--- NOTE | 2018-01-08 09:30 | Consultation ---
DATE OF CONSULTATION: 01/07/2018 HEMATOLOGY/ONCOLOCY CONSULTATION CONSULTING PHYSICIAN: Ramez Alonzo M.D. REQUESTING PHYSICIAN: Fausto Ruiz D.O. REASON FOR CONSULTATION: Evaluation of thrombocytopenia and anemia. IDENTIFICATION DATA: Dear Dr. Fausto Ruiz, The patient is a pleasant 87-year-old female with past medical history significant for depression, hypertension, and asthma, at this time presents to the ER complaining of chest pain for the past [facility], was noted to have wheezing. Paramedics stated the patient had breathing sounds, which were decreased 00:32 antibiotics and steroids. I reviewed the patient's medical record. She has been here back in 2012 as well. Noted to be with thrombocytopenia. Hematology Service was consulted for further evaluation and treatment. The patient's medical record has been reviewed from before. There has been significant decrease in her platelet count numbers. PAST MEDICAL HISTORY: Asthma, hypertension, depression, and dementia. FAMILY HISTORY: Noncontributory. REVIEW OF SYSTEMS: CONSTITUTIONAL: No fever, chills, or night sweats. SKIN: No rashes, bumps, or itching. HEENT: No headache, hearing or vision changes. BREASTS: No lumps, pain, or discharge. PULMONARY: 01:07 cough, sputum, or shortness of breath. GASTROINTESTINAL: No nausea, vomiting, or diarrhea. GENITOURINARY: No dysuria, frequency, or urgency. MUSCULOSKELETAL: No joint swelling, muscle pain, or trauma. PHYSICAL EXAMINATION: VITAL SIGNS: Reviewed. GENERAL: No acute distress. PULMONARY: Decreased breath sounds and crackles noted at the bases. CARDIOVASCULAR: Regular rate. No S3 or S4. ABDOMEN: Soft, nontender, and nondistended. EXTREMITIES: No cyanosis, swelling, or edema. LABORATORY DATA: BUN 22 and creatinine 1.1. WBC 8.9, hemoglobin 9.8, hematocrit 29, and platelet count 204,000. INR of 1. IMAGING: Imaging has been reviewed. ASSESSMENT AND RECOMMENDATIONS: 1. Thrombocytopenia is new onset since 5 years ago, current platelet count 74,000, potentially secondary to infection versus myelodysplastic syndrome versus other causes. Obtain HIV and hepatitis panel, ultrasound of the abdomen. 2. Anemia. Obtain anemia workup. Potentially secondary to anemia of chronic disease. 3. 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 Laboratories are pending at this time. No evidence of hemolysis. 4. Asthma, currently potential exacerbation, on antibiotics and steroids. 5. Dementia that has been chronic and ongoing for several years. 6. Depression, to be seen by Psychiatry. 7. Hypertension. Systolic blood pressure goal is 140. I appreciate the consultation. Ramez Alonzo M.D. DR: JANE JOB#: [id number] CC:
--- NOTE | 2018-01-08 09:45 | Consultation ---
DATE OF CONSULTATION: 01/07/2018 NEUROLOGY CONSULTATION CONSULTING PHYSICIAN: Dwight Shea M.D. REQUESTING PHYSICIAN: Fausto Ruiz D.O. HISTORY: Ms. Penny Fitzgerald is an 87-year-old, right-handed, lady, who does have a past history of hypertension, gastroesophageal reflux disease, essential tremor, asthma, remote breast cancer, and dementia. She was apparently at a day care center this morning and became short of breath and started to wheeze. For the last few days, she has had a cough productive of sputum as per her daughter. She was brought into the [facility] emergency room and was thought to be in status asthmaticus. As a result of that, she has been admitted. This consultation was requested to evaluate and manage the patient's alteration in mental state. The patient herself was unable to give me any further history. As per her daughter, she has had cognitive problems for numerous years and recently these cognitive problems have worsened significantly. PAST MEDICAL HISTORY: Significant for hypertension, gastroesophageal reflux disease, essential tremor, asthma, breast cancer, and dementia. FAMILY HISTORY: Nothing significant. PERSONAL HISTORY: Home: She lives at home with her daughter. Work: She is a retired housewife. Habits: There is no history of alcohol, tobacco, or illicit drug use. PRESENT MEDICATIONS: Include DuoNeb inhaler, levofloxacin, Aricept 10 mg daily, Paxil 20 mg daily, primidone 50 mg daily, amlodipine, levothyroxine, heparin for DVT prophylaxis, Solu-Medrol, Tylenol p.r.n., Zofran p.r.n., Ativan p.r.n., Restoril p.r.n., nitroglycerin p.r.n., clonidine p.r.n., and Phenergan With Codeine p.r.n. PHYSICAL EXAMINATION: GENERAL: She is a well-developed, well-nourished, obese, lady, lying in bed, in no acute distress, connected to a BiPAP machine. VITAL SIGNS: Pulse 79 per minute, blood pressure 130/60 mmHg, respirations 19 per minute, and temperature 98.6 degrees Fahrenheit. HEAD: Normocephalic and atraumatic. EENT: Examination benign. NECK: No neck rigidity was observed. NEUROLOGIC EXAMINATION: MENTAL STATUS EXAMINATION: She was awake and alert. She was oriented to self only. She had no idea where she was or what the date was. She was able to recall 3/3 words immediately, but could not remember any of them in 1 minute and 3 minutes. She was unable to tell me who the present President was and who prior presidents were. Her mathematical skills were impaired. Her visuospatial function was also impaired. SPEECH: She had a moderate dysarthria, but it should be noted that she had a BiPAP machine on. LANGUAGE: Could not be tested adequately. CRANIAL NERVE EXAMINATION: II: The visual lugo were intact on confrontation testing. III, IV & : The external ocular movements were full and the pupils 3 mm in diameter, equal, round, regular, and reactive to light. V: She had normal facial sensations and the temporales, masseters, and pterygoids functioned normally. VII: She had normal facial expressions and no facial asymmetry. It was difficult to test the facial muscles because of the BiPAP being on. VIII: She was able to hear and had no nystagmus. IX & X: Could not be tested adequately. XI: The sternocleidomastoids and trapezii did function. XII: Could not be tested adequately. MOTOR SYSTEM: The tone was normal in all four extremities. Examination of muscle mass revealed no focal wasting. Examination of power revealed G 5/5 power with some generalized give-way weakness. SENSORY EXAMINATION: She had intact sensations to light touch. She was unable to cooperate for the sensory modalities. REFLEXES: Trace+ and bilaterally symmetrical at the biceps, triceps, brachioradialis, and knees. 0 at both ankles. The plantar responses were flexor bilaterally. STANCE & GAIT: Could not be tested. DIAGNOSTIC IMPRESSION: 1. Ms. Penny Fitzgerald is an 87-year-old, right-handed, lady, who does have a past history of hypertension, gastroesophageal reflux disease, essential tremor, asthma, breast cancer, and dementia, who was hospitalized for status asthmaticus. Of note is that, for the last few days, she has had a cough productive of sputum. 2. On neurological examination, at this time, she does demonstrate problems with orientation, recent and remote memory, visuospatial function, and higher cognitive function. She also exhibits mild generalized give-way weakness, globally diminished deep tendon reflexes, a 7-8 Hz tremor involving her hands, and inability to test stance and gait. 3. Laboratory data obtained thus far have revealed that her WBC count is elevated to 13,900 and her hemoglobin is low at 9.8. Her chemistry panel reveals a sodium that is low at 129, chloride low at 97, BUN elevated to 22, and glucose elevated to 153. The urinalysis reveals 2+ leukocyte esterase, 2 to 4 red blood cells, and 10 to 15 white blood cells per high-power field. In addition, many urinary bacteria were also seen in the urine. 4. The patient's history and neurological examination are most compatible with an underlying primary degenerative dementia most probably Alzheimer disease with a superimposed encephalopathy. The encephalopathy is most probably due to ongoing infectious processes involving the lungs and the urinary tract infection. RECOMMENDATIONS: 1. Agree with management thus far. 2. Treatment of acute infectious processes. 3. Treatment of pulmonary processes as per Dr. Moon. 4. Continue Aricept for memory stabilization. 5. The patient will be observed closely and depending on how she fares over the next day or so, further recommendations will be given. Thank you for entrusting me with the care of Ms Fitzgerald. I shall follow her with you. Dwight Shea M.D., M.S.P.H. DR: PEGGY JOB#: [id number] MTDD
--- NOTE | 2018-01-08 09:45 | Consultation ---
DATE OF CONSULTATION: 01/07/2018 NEPHROLOGY CONSULTATION CONSULTING PHYSICIAN: Laverne Kim M.D. REFERRING PHYSICIAN: Fausto Ruiz D.O. REASON FOR CONSULTATION: Hyperkalemia, hyponatremia, and acute renal failure. HISTORY OF PRESENT ILLNESS: The patient is an 87-year-old Farsi speaking very pleasant female with past medical history significant for history of asthma and chronic obstructive pulmonary disease. She also has a history of hypertension. She apparently started having some cold-like symptoms like shortness of breath and cough. She started having wheezing. Her wheezing got worse and was brought in to [facility]. In the ER, the patient was found to be severely hypoxic and having an asthma and not able to finish a full sentence. Consequently, the patient was placed on BiPAP and is admitted in the hospital and started on IV antibiotic and a steroid. While the patient was in the hospital, the patient was found to have a sodium of 129 and potassium went up as high as 5.4. I was called for management of renal disease and electrolyte imbalance. PAST MEDICAL HISTORY: 1. History of hypertension. 2. History of asthma. 3. History of dementia. 4. History of depression. 5. Hypothyroidism. PAST SURGICAL HISTORY: None. HOME MEDICATIONS: 1. Aspirin 81 mg p.o. daily. 2. Amlodipine 2.5 mg p.o. daily. 3. Atenolol 50 mg p.o. daily. 4. Aricept 10 mg p.o. daily. 5. Levothyroxine 50 mcg daily. 6. Omeprazole one tablet p.o. daily. 7. Paxil 20 mg p.o. daily. 8. Actonel 35 mg p.o. daily. 9. Valsartan 320 mg p.o. daily. 10. Ditropan XL 10 mg at . REVIEW OF SYSTEMS: GENERAL: She complained of generalized weakness. Denied any fever, chills, or night sweats. HEAD AND NECK: Denies any dysphagia, odynophagia, blurry vision, headache, or neck stiffness. PULMONARY: Complained of cough, yellow sputum, wheezing, and shortness of breath. CARDIOVASCULAR: Denies any chest pain or palpitations. GASTROINTESTINAL: Denies any nausea, vomiting, diarrhea, hematemesis, or hematochezia. GENITOURINARY: Denies any dysuria, frequency, or hematuria. MUSCULOSKELETAL: Denies any localized weakness or numbness. PHYSICAL EXAMINATION: VITAL SIGNS: The patient has a temperature of 98 degrees, pulse of 96, respiratory rate of 28, and blood pressure of 120/77. HEAD AND NECK: No JVP. No LAD. No thyromegaly. Extraocular movement intact. Pupils are reactive to light and accommodation. LUNGS: Has expiratory wheezing. CARDIAC: Regular rate and rhythm. S1 and S2. No murmur. No rub. ABDOMEN: Soft, nontender, and nondistended. EXTREMITIES: Trace edema. No clubbing. No cyanosis. LABORATORY AND DIAGNOSTIC DATA: The patient has sodium of 129, potassium of 5.9, chloride 97, bicarb 27, BUN of 22, creatinine of 1.1, and glucose of 153. Calcium of 8.6. Total protein of 7.6. Albumin of 3.3. CBC revealed WBC count of 13,000, hemoglobin of 9.8, hematocrit of 29, and platelet count of 74,000. ABG revealed pH of 7.36, pCO2 of 39, and pO2 of 109. UA revealed a specific gravity of 1.015, protein 2+, leukocyte esterase 2+, rbc of 2 to 4, wbc 10 to 15, and bacteria many. ASSESSMENT: 1. Isovolemic hyponatremia. 2. Hyperkalemia. 3. Acute asthma exacerbation. 4. Hypertension, well controlled. 5. Right lower lobe lung infiltration. PLAN: Plan for the patient is to obtain a UA. Check the random urine protein-creatinine ratio to calculate the proteinuria. Check the urine sodium and creatinine to calculate fractional excretion of sodium. Low potassium diet. Give Kayexalate. Check urine output. Scan the bladder. At the end, I would like to thank, Dr. Ruiz, for allowing me to participate in the care of this patient. Laverne Kim M.D. DR: JESSI JOB#: [id number] CC:
--- NOTE | 2018-01-08 09:45 | History and Physical Report ---
DATE OF ADMISSION: 01/07/2018 TIME: 4 p.m. SLIDE MAKER: Yeyo Moon M.D. CHIEF COMPLAINT: COPD exacerbation. BRIEF HISTORY: This is an 87-year-old female, who presented to [facility] last night with history of increased shortness of breath, went into respiratory failure, and placed on BiPAP. Currently, lethargic, sleepy in bed, and nonverbal. PAST MEDICAL HISTORY: Includes asthma, dementia, and hypertension. PAST SURGICAL HISTORY: Unknown. MEDICATIONS: Include albuterol, levofloxacin, Aricept, Paxil, Mysoline, Norvasc, Synthroid, and heparin. ALLERGIES: Denies. SOCIAL HISTORY: Unable to obtain secondary to the patient's condition. REVIEW OF SYSTEMS: Unavailable secondary to the patient's lethargy. PHYSICAL EXAMINATION: GENERAL: Lethargic in bed, BiPAP in place, sleeping in bed, and nonverbal. VITAL SIGNS: Temperature is 98, pulse 89, respirations 20, and blood pressure 146/72. CARDIOVASCULAR: No murmur. LUNGS: Poor air exchange. ABDOMEN: Bowel sounds distant. EXTREMITIES: No cyanosis, clubbing, or edema. NEUROLOGIC: The patient is flaccid in bed, not responding to questions. LABORATORY AND DIAGNOSTIC DATA: Labs, at this time, show white count 13.9, hemoglobin and hematocrit are 9.8 and 29, and platelets 74,000, thrombocytopenia. BMP shows sodium 129, potassium 5.9, chloride 97, BUN and creatinine are 22 and 1.1, and glucose is 154. INR is 1.0. Urinalysis, 2+ leukocyte esterase. ASSESSMENT: 1. Altered mental status. 2. Chronic obstructive pulmonary disease exacerbation 3. Urinary tract infection. 4. Respiratory failure, on BiPAP. 5. Diabetes. 6. Asthma. 7. Anemia. 8. Dementia. 9. Hypertension. 10. Thrombocytopenia. 11. Hyperkalemia. 12. Hyponatremia. PLAN: 1. Continue previous medications. 2. O2 and pulmonary treatment as needed. 3. Antibiotics per Infectious Disease. 4. OT, PT, and dietary evaluation. 5. CBC and BMP in the morning. 6. Resume home medications. 7. Bette Hernandez, Dr. Alonzo, Dr. Canchola, Dr. Kim, and Dr. hSea to consult. We will continue to follow this patient. Fausto Ruiz D.O. DR: GUILLERMINA JOB#: [id number] CC:
--- NOTE | 2018-01-08 10:20 | Pulmonology Progress Note ---
Assessment/Plan Problems: (1) Acute respiratory failure (2) Status asthmaticus (3) Depression (4) Hypertension (5) History of asthma (6) Dementia Assessment/Plan improving decrease steroids to BID continue abx, levofloxacin titrate fio2 to sat of 92% still a little wheezing could go to med/surg if ok with cardiology dvt prophylaxis Subjective ROS Limited/Unobtainable: No Constitutional: Reports: no symptoms HEENT: Repors: no symptoms Respiratory: Reports: no symptoms Cardiovascular: Reports: no symptoms Allergies: Coded Allergies: No Known Allergies (Verified , 06/07/09) Objective Last 24 Hour Vital Signs Date Time Temp Pulse Resp B/P (MAP) Pulse Ox O2 Delivery O2 Flow Rate FiO2 01/08/18 09:15 83 143/51 01/08/18 08:00 97.7 83 22 143/51 96 Venturi Mask 30 97.7 83 01/08/18 07:16 62 16 99 Venturi Mask 30 01/08/18 07:08 65 20 99 Bi-pap 30 01/08/18 07:08 65 20 Bi-pap 30 01/08/18 07:08 65 20 99 Facial 30 01/08/18 05:29 71 17 98 Facial 30 01/08/18 04:00 74 01/08/18 04:00 98.1 76 12 146/58 98 Bi-pap 30 98.1 76 01/08/18 03:10 71 14 99 Bi-pap 30 01/08/18 03:03 69 16 99 Bi-pap 30 01/08/18 02:35 87 19 99 Facial 30 01/08/18 01:07 73 16 96 Facial 30 01/08/18 00:00 67 01/07/18 23:58 97.5 71 15 158/65 98 Bi-pap 30 97.5 71 01/07/18 23:18 76 18 98 Bi-pap 30 01/07/18 22:57 86 18 97 Bi-pap 30 01/07/18 22:50 77 18 98 Facial 30 01/07/18 20:49 76 17 97 Facial 30 01/07/18 20:00 82 01/07/18 20:00 97.5 105 20 145/63 92 Bi-pap 30 97.5 105 01/07/18 19:02 79 19 99 Bi-pap 30 01/07/18 18:55 74 21 98 Facial 30 01/07/18 18:54 76 21 98 Bi-pap 30 01/07/18 18:21 65 130/60 01/07/18 16:50 68 16 100 Facial 30 01/07/18 16:00 98.6 69 22 130/56 98 Bi-pap 30 98.6 69 01/07/18 16:00 72 01/07/18 15:09 89 20 99 Bi-pap 30 01/07/18 14:59 89 20 98 Bi-pap 30 01/07/18 14:57 89 19 98 Facial 30 01/07/18 13:17 73 20 98 01/07/18 13:10 88 146/72 01/07/18 12:00 70 01/07/18 12:00 98.1 87 21 146/71 96 Venturi Mask 30 98.1 87 01/07/18 10:58 65 21 100 01/07/18 10:57 96 21 99 Bi-pap 30 01/07/18 10:47 63 21 99 Bi-pap 30 01/07/18 10:45 63 21 98 Facial 30 Intake and Output 01/07/18 01/08/18 19:00 07:00 Output Total 2 ml 510 ml Balance -2 ml -510 ml Output Urine Total 500 ml Stool Total 2 ml 10 ml # Voids 5 2 # Bowel Movements 2 General Appearance: WD/WN HEENT: normocephalic, atraumatic Respiratory/Chest: chest wall non-tender, expiratory wheezing Cardiovascular: normal peripheral pulses, normal rate Abdomen: normal bowel sounds, soft, non tender Genitourinary: normal external genitalia Extremities: no cyanosis Skin: no rash 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 Lymphatic: no neck adenopathy Microbiology Date/Time Source Procedure Growth Status 01/06/18 11:20 Blood Blood Culture - Preliminary NO GROWTH AFTER 24 HOURS Resulted 01/06/18 11:10 Blood Blood Culture - Preliminary NO GROWTH AFTER 24 HOURS Resulted 01/06/18 14:47 Urine,Clean Catch Urine Culture - Preliminary Mixed Gram Positive Organism Resulted Laboratory Tests 01/07/18 19:30: Urine Random Total Protein 17H, Urine Random Sodium < 10L, Urine Creatinine 63.4 , Urine Potassium Timed 40, Stool Occult Blood [Pending] 01/08/18 05:00: White Blood Count 13.3H, Red Blood Count 3.34L, Hemoglobin 9.0L, Hematocrit 27.4L, Mean Corpuscular Volume 82, Mean Corpuscular Hemoglobin 26.9L, Mean Corpuscular Hemoglobin Concent 32.7, Red Cell Distribution Width 12.8, Platelet Count 101L, Mean Platelet Volume 7.3, Neutrophils (%) (Auto) , Lymphocytes (%) ( Auto) , Monocytes (%) (Auto) , Eosinophils (%) (Auto) , Basophils (%) (Auto) , Differential Total Cells Counted 100, Neutrophils % (Manual) 94H, Lymphocytes % (Manual) 4L, Monocytes % (Manual) 2, Eosinophils % (Manual) 0, Basophils % ( Manual) 0, Band Neutrophils 0, Platelet Estimate DecreasedL, Platelet Morphology Normal, Hypochromasia 1+, Erythrocyte Sedimentation Rate 60H, Reticulocyte Count [Pending], Prothrombin Time 10.4, Prothromb Time International Ratio 1.0, Activated Partial Thromboplast Time 26, Sodium Level 131L, Potassium Level 4.3, Chloride Level 96L, Carbon Dioxide Level 27, Anion Gap 8, Blood Urea Nitrogen 26H, Creatinine 1.0, Estimat Glomerular Filtration Rate , Glucose Level 154H, Calcium Level 8.5, Iron Level 29L, Total Iron Binding Capacity 318, Percent Iron Saturation 9L, Unsaturated Iron Binding 289, Total Bilirubin 0.2, Aspartate Amino Transf (AST/SGOT) 23, Alanine Aminotransferase (ALT/SGPT) 23, Alkaline Phosphatase 45L, Lactate Dehydrogenase 150, Pro-B-Type Natriuretic Peptide 1845H, Total Protein 7.4, Albumin 3.3L, Globulin 4.1, Albumin/Globulin Ratio 0.8L, Carcinoembryonic Antigen [Pending], Vitamin B12 Level 497, Folate 14.8, Thyroid Stimulating Hormone (TSH) 0.717, Hepatitis A IgM Antibody [Pending], Hepatitis B Surface Antigen [Pending], Hepatitis B Core IgM Antibody [Pending], Hepatitis C Antibody [Pending] Current Medications Medications (Trade) Dose Ordered Sig/Marce Route PRN Reason Start Time Stop Time Status Last Admin Dose Admin Acetaminophen (Tylenol) 650 mg Q4H PRN ORAL fever 01/06/18 16:00 02/05/18 15:59 Albuterol/ Ipratropium (Albuterol/ Ipratropium) 3 ml Q4H HHN 01/07/18 16:00 01/12/18 15:59 01/08/18 07:08 Amlodipine Besylate (Norvasc) 5 mg TID ORAL 01/07/18 09:00 02/06/18 08:59 01/08/18 09:15 Clonidine HCl (Catapres Tab) 0.1 mg Q4H PRN ORAL sbp more than 160 01/06/18 16:00 02/05/18 15:59 01/06/18 21:19 Dextrose (Dextrose 50%) STAT PRN IV Hypoglycemia 01/06/18 16:00 02/05/18 15:59 Donepezil HCl (Aricept) 10 mg DAILY ORAL 01/07/18 09:00 02/06/18 08:59 01/08/18 09:15 Heparin Sodium (Porcine) (Heparin 5000 units/ml) 5,000 units EVERY 12 HOURS SUBQ 01/06/18 21:00 02/05/18 20:59 Iron Sucrose 100 mg/Sodium Chloride 60 ml @ 240 mls/hr BEDTIME IVPB 01/08/18 21:00 01/12/18 21:14 Levofloxacin 100 ml @ 100 mls/hr Q24H IVPB 01/07/18 12:00 01/14/18 11:59 01/07/18 13:10 Levothyroxine Sodium (Synthroid) 50 mcg ACBREAKFAST ORAL 01/07/18 06:30 02/06/18 06:29 01/08/18 05:51 Lorazepam (Ativan 2mg/ml 1ml) 0.5 mg Q4H PRN IV For Anxiety 01/06/18 16:00 01/13/18 15:59 Methylprednisolone Sodium Succinate (Solu-MEDROL) 60 mg EVERY 6 HOURS IV 01/06/18 18:00 02/05/18 17:59 01/08/18 05:51 Nitroglycerin (Ntg) 0.4 mg Q5M X 3 DOSES PRN SL Prn Chest Pain 01/06/18 16:00 02/05/18 15:59 Ondansetron HCl (Zofran) 4 mg Q6H PRN IVP Nausea & Vomiting 01/06/18 16:00 02/05/18 15:59 Paroxetine HCl (Paxil) 20 mg DAILY ORAL 01/07/18 09:00 6/13/18 08:59 01/08/18 09:15 Primidone (Mysoline) 50 mg DAILY ORAL 01/07/18 09:00 02/06/18 08:59 01/08/18 09:14 Promethazine HCl/ Codeine (Phenergan with Codeine) 5 ml Q6H PRN ORAL cough 01/06/18 16:00 02/05/18 15:59 Temazepam (Restoril) 15 mg HSPRN PRN ORAL Insomnia 01/06/18 16:00 01/13/18 15:59 01/07/18 20:35 Yeyo Moon MD January 08, 2018 10:20
[2018-01-08 12:00] VITALS: BP 128/56
--- NOTE | 2018-01-08 14:26 | Consultation ---
Consult Note Consult Note [id number] Jonathan Amos MD January 08, 2018 14:26
--- NOTE | 2018-01-08 14:49 | Neurology Progress Note ---
Interim History Interim History Interim History Ms. Fitzgerald feels better today. She is off the BiPap. She is still wheezing. The mind is still not clear. She continues to be cognitively impoverished. She has not been out of bed yet. Review of Systems Neuro Review of Systems Benign. Objective Physical Exam Last Vital Signs Date Time Temp Pulse Resp B/P (MAP) Pulse Ox O2 Delivery O2 Flow Rate FiO2 01/08/18 13:04 76 20 98 01/08/18 11:14 Nasal Cannula 2.0 28 01/08/18 09:15 143/51 01/08/18 08:00 97.7 97.7 Laboratory Tests Test 01/07/18 19:30 01/08/18 05:00 Urine Random Total Protein 17 MG/DL (< 11.9) H Urine Random Sodium < 10 mmol/L (20-110) L Urine Creatinine 63.4 MG/DL (30.0-125.0) Urine Potassium Timed 40 mmol/L (12-62) Stool Occult Blood Negative (NEGATIVE) White Blood Count 13.3 K/UL (4.8-10.8) H Red Blood Count 3.34 M/UL (4.20-5.40) L Hemoglobin 9.0 G/DL (12.0-16.0) L Hematocrit 27.4 % (37.0-47.0) L Mean Corpuscular Volume 82 FL (80-99) Mean Corpuscular Hemoglobin 26.9 PG (27.0-31.0) L Mean Corpuscular Hemoglobin Concent 32.7 G/DL (32.0-36.0) Red Cell Distribution Width 12.8 % (11.6-14.8) Platelet Count 101 K/UL (150-450) L Mean Platelet Volume 7.3 FL (6.5-10.1) Neutrophils (%) (Auto) % (45.0-75.0) Lymphocytes (%) (Auto) % (20.0-45.0) Monocytes (%) (Auto) % (1.0-10.0) Eosinophils (%) (Auto) % (0.0-3.0) Basophils (%) (Auto) % (0.0-2.0) Differential Total Cells Counted 100 Neutrophils % (Manual) 94 % (45-75) H Lymphocytes % (Manual) 4 % (20-45) L Monocytes % (Manual) 2 % (1-10) Eosinophils % (Manual) 0 % (0-3) Basophils % (Manual) 0 % (0-2) Band Neutrophils 0 % (0-8) Other Cell Type Pathologist comment Platelet Estimate Decreased L Platelet Morphology Normal Hypochromasia 1+ Erythrocyte Sedimentation Rate 60 MM/HR (0-30) H Reticulocyte Count 1.6 % (0.0-2.0) Prothrombin Time 10.4 SEC (9.30-11.50) Prothromb Time International Ratio 1.0 (0.9-1.1) Activated Partial Thromboplast Time 26 SEC (23-33) Sodium Level 131 MMOL/L (136-145) L Potassium Level 4.3 MMOL/L (3.5-5.1) Chloride Level 96 MMOL/L (98-107) L Carbon Dioxide Level 27 MMOL/L (21-32) Anion Gap 8 mmol/L (5-15) Blood Urea Nitrogen 26 mg/dL (7-18) H Creatinine 1.0 MG/DL (0.55-1.30) Estimat Glomerular Filtration Rate mL/min (>60) Glucose Level 154 MG/DL (74-106) H Calcium Level 8.5 MG/DL (8.5-10.1) Iron Level 29 ug/dL (50-175) L Total Iron Binding Capacity 318 ug/dL (250-450) Percent Iron Saturation 9 % (15-50) L Unsaturated Iron Binding 289 ug/dL (112-346) Total Bilirubin 0.2 MG/DL (0.2-1.0) Aspartate Amino Transf (AST/SGOT) 23 U/L (15-37) Alanine Aminotransferase (ALT/SGPT) 23 U/L (12-78) Alkaline Phosphatase 45 U/L (46-116) L Lactate Dehydrogenase 150 U/L (81-234) Pro-B-Type Natriuretic Peptide 1845 pg/mL (0-125) H Total Protein 7.4 G/DL (6.4-8.2) Total Protein (PEP) Pending Albumin 3.3 G/DL (3.4-5.0) L Albumin (PEP) Pending Globulin 4.1 g/dL Globulin (PEP) Pending Albumin/Globulin Ratio Pending Azepf-8-Zenegmerv Pending Weuyf-6-Zujzdlsao Pending Beta Globulins Pending Beta Gamma Globulin Pending PEP Abnormal Protein Bands Pending Protein Electrophoresis Interpret Pending Carcinoembryonic Antigen Pending CA 15-3 Antigen Pending CA 19-9 Antigen Pending CA 125 Antigen Pending Vitamin B12 Level 497 PG/ML (193-986) Methylmalonic Acid Pending Folate 14.8 NG/ML (8.6-58.9) Thyroid Stimulating Hormone (TSH) 0.717 uiU/mL (0.358-3.740) Immunoglobulin G Pending Immunoglobulin A Pending Immunoglobulin M Pending Immunofixation Screen Pending Hepatitis A IgM Antibody Pending Hepatitis B Surface Antigen Pending Hepatitis B Core IgM Antibody Pending Hepatitis C Antibody Pending Neurologic Exam Objective PHYSICAL EXAMINATION: GENERAL: She is a well-developed, well-nourished, obese, lady, lying in bed, in no acute distress. HEAD: Normocephalic and atraumatic. EENT: Examination benign. NECK: No neck rigidity was observed. NEUROLOGIC EXAMINATION: MENTAL STATUS EXAMINATION: She was awake and alert. She was oriented to self only. She had no idea where she was or what the date was. She was able to recall 3/3 words immediately, but could not remember any of them in 1 minute and 3 minutes. She was unable to tell me who the present President was and who prior presidents were. Her mathematical skills were impaired. Her visuospatial function was also impaired. SPEECH: She had no dysarthria. LANGUAGE: Could not be tested adequately. CRANIAL NERVE EXAMINATION: II: The visual lugo were intact on confrontation testing. III, IV & : The external ocular movements were full and the pupils 3 mm in diameter, equal, round, regular, and reactive to light. V: She had normal facial sensations and the temporales, masseters, and pterygoids functioned normally. VII: She had normal facial expressions and no facial asymmetry. VIII: She was able to hear and had no nystagmus. IX & X: The gag reflex was present.. XI: The sternocleidomastoids and trapezii did function. XII: The tongue was in the midline. MOTOR SYSTEM: The tone was normal in all four extremities. Examination of muscle mass revealed no focal wasting. Examination of power revealed G 5/5 power with some generalized give-way weakness. SENSORY EXAMINATION: She had intact sensations to light touch. REFLEXES: Trace+ and bilaterally symmetrical at the biceps, triceps, brachioradialis, and knees. 0 at both ankles. The plantar responses were flexor bilaterally. STANCE & GAIT: Could not be tested. Impression/Recommendations Diagnostic Impression 1. Ms. Penny Fitzgerald is an 87-year-old, right-handed, lady, who does have a past history of hypertension, gastroesophageal reflux disease, essential tremor, asthma, breast cancer, and dementia, who was hospitalized for status asthmaticus. Of note is that, for the last few days, she has had a cough productive of sputum. 2. She feels better today. She is off the BiPap. She is still wheezing. The mind is still not clear. She continues to be cognitively impoverished. She has not been out of bed yet. 3. On neurological examination, at this time, she does demonstrate problems with orientation, recent and remote memory, visuospatial function, and higher cognitive function. She also exhibits mild generalized give-way weakness, globally diminished deep tendon reflexes, a 7-8 Hz tremor involving her hands, and inability to test stance and gait. 4. Laboratory data obtained on my initial evaluation revealed that her WBC count is elevated to 13,900 and her hemoglobin is low at 9.8. Her chemistry panel reveals a sodium that is low at 129, chloride low at 97, BUN elevated to 22, and glucose elevated to 153. The urinalysis reveals 2+ leukocyte esterase, 2 to 4 red blood cells, and 10 to 15 white blood cells per high-power field. In addition, many urinary bacteria were also seen in the urine. 5. The patient's history and neurological examination are most compatible with an underlying primary degenerative dementia most probably Alzheimer disease with a superimposed encephalopathy. The encephalopathy is most probably due to ongoing infectious processes involving the lungs and the urinary tract infection. Recommendations 1. Continue present management. 2. Treatment of acute infectious processes. 3. Treatment of pulmonary processes as per Dr. Moon. 4. Continue Aricept for memory stabilization. Kamaljit Figueroa M.D., M.S.P.H. KAMALJIT FIGUEROA January 08, 2018 14:49
--- NOTE | 2018-01-08 15:11 | General Progress Note ---
Assessment/Plan Problem List: (1) COPD exacerbation ICD Codes: J44.1 - Chronic obstructive pulmonary disease with (acute) exacerbation SNOMED: 697865755 (2) UTI (urinary tract infection) ICD Codes: N39.0 - Urinary tract infection, site not specified SNOMED: 81057611 Qualifiers: (3) Dyspnea ICD Codes: R06.00 - Dyspnea, unspecified SNOMED: 806062790 Qualifiers: (4) Dementia ICD Codes: F03.90 - Unspecified dementia without behavioral disturbance SNOMED: 30788153 (5) Hypertension ICD Codes: I10 - Essential (primary) hypertension SNOMED: 53825207 (6) Acute respiratory failure ICD Codes: J96.00 - Acute respiratory failure, unspecified whether with hypoxia or hypercapnia SNOMED: 78870359 (7) Shortness of breath ICD Codes: R06.02 - Shortness of breath SNOMED: 671966657 Status: stable, progressing Assessment/Plan o2 pulm tx abx ot pt diet cbc bmp am Subjective Constitutional: Reports: weakness Allergies: Coded Allergies: No Known Allergies (Verified , 06/07/09) All Systems: reviewed and negative except above Subjective o2nc sl sob Objective Last 24 Hour Vital Signs Date Time Temp Pulse Resp B/P (MAP) Pulse Ox O2 Delivery O2 Flow Rate FiO2 01/08/18 13:04 76 20 98 01/08/18 11:14 79 18 99 Nasal Cannula 2.0 28 01/08/18 11:08 79 20 99 01/08/18 11:08 78 20 100 Venturi Mask 30 01/08/18 09:15 83 143/51 01/08/18 08:00 64 01/08/18 08:00 97.7 83 22 143/51 96 Venturi Mask 30 97.7 83 01/08/18 07:16 62 16 99 Venturi Mask 30 01/08/18 07:08 65 20 99 Bi-pap 30 01/08/18 07:08 65 20 Bi-pap 30 01/08/18 07:08 65 20 99 Facial 30 01/08/18 05:29 71 17 98 Facial 30 01/08/18 04:00 74 01/08/18 04:00 98.1 76 12 146/58 98 Bi-pap 30 98.1 76 01/08/18 03:10 71 14 99 Bi-pap 30 01/08/18 03:03 69 16 99 Bi-pap 30 01/08/18 02:35 87 19 99 Facial 30 01/08/18 01:07 73 16 96 Facial 30 01/08/18 00:00 67 01/07/18 23:58 97.5 71 15 158/65 98 Bi-pap 30 97.5 71 01/07/18 23:18 76 18 98 Bi-pap 30 01/07/18 22:57 86 18 97 Bi-pap 30 01/07/18 22:50 77 18 98 Facial 30 01/07/18 20:49 76 17 97 Facial 30 01/07/18 20:00 82 01/07/18 20:00 97.5 105 20 145/63 92 Bi-pap 30 97.5 105 01/07/18 19:02 79 19 99 Bi-pap 30 01/07/18 18:55 74 21 98 Facial 30 01/07/18 18:54 76 21 98 Bi-pap 30 01/07/18 18:21 65 130/60 01/07/18 16:50 68 16 100 Facial 30 01/07/18 16:00 98.6 69 22 130/56 98 Bi-pap 30 98.6 69 01/07/18 16:00 72 01/07/18 15:09 89 20 99 Bi-pap 30 Intake and Output 01/07/18 01/08/18 19:00 07:00 Output Total 2 ml 510 ml Balance -2 ml -510 ml Output Urine Total 500 ml Stool Total 2 ml 10 ml # Voids 5 2 # Bowel Movements 2 Laboratory Tests 01/07/18 19:30: Urine Random Total Protein 17H, Urine Random Sodium < 10L, Urine Creatinine 63.4 , Urine Potassium Timed 40, Stool Occult Blood Negative 01/08/18 05:00: White Blood Count 13.3H, Red Blood Count 3.34L, Hemoglobin 9.0L, Hematocrit 27.4L, Mean Corpuscular Volume 82, Mean Corpuscular Hemoglobin 26.9L, Mean Corpuscular Hemoglobin Concent 32.7, Red Cell Distribution Width 12.8, Platelet Count 101L, Mean Platelet Volume 7.3, Neutrophils (%) (Auto) , Lymphocytes (%) ( Auto) , Monocytes (%) (Auto) , Eosinophils (%) (Auto) , Basophils (%) (Auto) , Differential Total Cells Counted 100, Neutrophils % (Manual) 94H, Lymphocytes % (Manual) 4L, Monocytes % (Manual) 2, Eosinophils % (Manual) 0, Basophils % ( Manual) 0, Band Neutrophils 0, Other Cell Type Pathologist comment, Platelet Estimate DecreasedL, Platelet Morphology Normal, Hypochromasia 1+, Erythrocyte Sedimentation Rate 60H, Reticulocyte Count 1.6, Prothrombin Time 10.4, Prothromb Time International Ratio 1.0, Activated Partial Thromboplast Time 26, Sodium Level 131L, Potassium Level 4.3, Chloride Level 96L, Carbon Dioxide Level 27, Anion Gap 8, Blood Urea Nitrogen 26H, Creatinine 1.0, Estimat Glomerular Filtration Rate , Glucose Level 154H, Calcium Level 8.5, Iron Level 29L, Total Iron Binding Capacity 318, Percent Iron Saturation 9L, Unsaturated Iron Binding 289, Total Bilirubin 0.2, Aspartate Amino Transf (AST/SGOT) 23, Alanine Aminotransferase (ALT/SGPT) 23, Alkaline Phosphatase 45L, Lactate Dehydrogenase 150, Pro-B-Type Natriuretic Peptide 1845H, Total Protein 7.4, Total Protein (PEP) [Pending], Albumin 3.3L, Albumin (PEP) [Pending], Globulin 4.1, Globulin (PEP) [Pending], Albumin/Globulin Ratio [Pending], Alpha-1- Globulins [Pending], Aaipy-6-Qtbhccuiv [Pending], Beta Globulins [Pending], Beta Gamma Globulin [Pending], PEP Abnormal Protein Bands [Pending], Protein Electrophoresis Interpret [Pending], Carcinoembryonic Antigen [Pending], CA 15- 3 Antigen [Pending], CA 19-9 Antigen [Pending], CA 125 Antigen [Pending], Vitamin B12 Level 497, Methylmalonic Acid [Pending], Folate 14.8, Thyroid Stimulating Hormone (TSH) 0.717, Immunoglobulin G [Pending], Immunoglobulin A [ Pending], Immunoglobulin M [Pending], Immunofixation Screen [Pending], Hepatitis A IgM Antibody [Pending], Hepatitis B Surface Antigen [Pending], Hepatitis B Core IgM Antibody [Pending], Hepatitis C Antibody [Pending] Height (Feet): 5 Height (Inches): 2.00 Weight (Pounds): 150 General Appearance: lethargic EENT: normal ENT inspection Neck: normal alignment Cardiovascular: normal peripheral pulses, normal rate, regular rhythm Respiratory/Chest: chest wall non-tender, decreased breath sounds Abdomen: normal bowel sounds, non tender, soft Extremities: normal inspection Edema: no edema noted Arm (L), no edema noted Arm (R), no edema noted Leg (L), no edema noted Leg (R), no edema noted Pedal (L), no edema noted Pedal (R), no edema noted Generalized Neurologic: motor weakness Skin: normal pigmentation, warm/dry Fausto Ruiz DO January 08, 2018 15:11
[2018-01-08 16:00] VITALS: BP 99/60
[2018-01-08] MEDS ORDERED: Tubing IV Secondary IV ONE (17:42)
[2018-01-08 20:00] VITALS: BP 149/64
[2018-01-08] MEDS ORDERED: Iron Sucrose 100 MG in NS 55 ML IVPB SCH (21:00)
[2018-01-09] VITALS: BP 144/70
[2018-01-09] MEDS: Solu-MEDROL 125mg Inj IV SCH ×2 (00:29→08:32)
[2018-01-09] MEDS: Albuterol/Ipratropium 3ml neb HHN SCH ×5 (03:26→22:59)
[2018-01-09 04:06] LABS: HEMATOCRIT 27.3 % (37.0-47.0); MEAN CORPUSCULAR VOLUME 83 FL (80-99); PLATELET COUNT 151 K/UL (150-450); RED BLOOD COUNT 3.31 M/UL (4.20-5.40); RED CELL DISTRIBUTION WIDTH 12.8 % (11.6-14.8); WHITE BLOOD COUNT 12.4 K/UL (4.8-10.8)
[2018-01-09 04:15] LABS: ANION GAP 7 mmol/L (5-15); BLOOD UREA NITROGEN 28 mg/dL (7-18); CALCIUM 8.4 MG/DL (8.5-10.1); CARBON DIOXIDE 30 MMOL/L (21-32); CHLORIDE 99 MMOL/L (98-107); CREATININE 1.1 MG/DL (0.55-1.30); POTASSIUM 4.3 MMOL/L (3.5-5.1); SODIUM 136 MMOL/L (136-145)
[2018-01-09 04:25] VITALS: BP 125/61
--- NOTE | 2018-01-09 07:23 | General Progress Note ---
Assessment/Plan Assessment/Plan # Thrombocytopenia -- workup has included hepatitis, hiv panel and us of the abdomen --> currently has improved over the course of the last several days --> transfuse to plt above 20k # Anemia of iron deficiency -- workup has been ordered including ferritin, tibc , b12, folate, tsh --> maintain hgb above 7, workup if any evidence for hemolysis --> started on iv iron 100mg x 5 days # Breast cancer history -- prior history unknown, imaging historically has been reviewed --> is not on any anti-hormonal drugs, obtain further history from family # HTN # GERD # Asthma # Dementia. Subjective Constitutional: Denies: no symptoms, chills, diaphoresis, fever, malaise, weakness, other HEENT: Denies: no symptoms, eye pain, blurred vision, tearing, double vision, ear pain, ear discharge, nose pain, nose congestion, throat pain, throat swelling, mouth pain, mouth swelling, other Cardiovascular: Denies: no symptoms, chest pain, edema, irregular heart rate, lightheadedness, palpitations, syncope, other Respiratory: Denies: no symptoms, cough, orthopnea, shortness of breath, SOB with excertion, SOB at rest, sputum, stridor, wheezing, other Gastrointestinal/Abdominal: Denies: no symptoms, abdomen distended, abdominal pain, black stools, tarry stools, blood in stool, constipated, diarrhea, difficulty swallowing, nausea, poor appetite, poor fluid intake, rectal bleeding , vomiting, other Genitourinary: Denies: no symptoms, burning, discharge, frequency, flank pain, hematuria, incontinence, pain, urgency, other Neurologic/Psychiatric: Denies: no symptoms, anxiety, depressed, emotional problems, headache, numbness, paresthesia, pre-existing deficit, seizure, tingling, tremors, weakness, other Endocrine: Denies: no symptoms, excessive sweating, flushing, intolerance to cold, intolerance to heat, increased hunger, increased thirst, increased urine, unexplained weight gain, unexplained weight loss, other Allergies: Coded Allergies: No Known Allergies (Verified , 06/07/09) Subjective no events, on nc, has been sleeping Objective Last 24 Hour Vital Signs Date Time Temp Pulse Resp B/P (MAP) Pulse Ox O2 Delivery O2 Flow Rate FiO2 01/09/18 07:13 84 18 99 Nasal Cannula 3.0 32 01/09/18 07:06 89 20 98 Nasal Cannula 3.0 01/09/18 04:25 125/61 01/09/18 04:00 132 01/09/18 03:47 98 18 99 Nasal Cannula 2.0 28 01/09/18 03:27 84 20 98 Nasal Cannula 3.0 01/09/18 00:00 98.7 95 32 144/70 99 Nasal Cannula 3.0 98.7 95 01/08/18 23:24 100 01/08/18 22:56 123 18 99 Nasal Cannula 2.0 28 01/08/18 22:46 101 20 98 Nasal Cannula 3.0 01/08/18 20:35 133 01/08/18 20:00 99.1 138 20 149/64 95 Nasal Cannula 3.0 99.1 138 01/08/18 19:47 127 18 99 Nasal Cannula 2.0 28 01/08/18 19:37 105 20 96 Nasal Cannula 2.0 01/08/18 17:52 97 99/60 01/08/18 16:03 74 128/56 01/08/18 16:00 97.0 97 22 99/60 97 Nasal Cannula 3.0 97.0 97 01/08/18 16:00 102 01/08/18 15:20 74 18 99 Nasal Cannula 2.0 28 01/08/18 15:10 88 20 100 Venturi Mask 30 01/08/18 15:10 81 18 99 01/08/18 13:04 76 20 98 01/08/18 12:00 88 01/08/18 12:00 98.9 81 18 128/56 99 Venturi Mask 30 98.9 81 01/08/18 11:14 79 18 99 Nasal Cannula 2.0 28 01/08/18 11:08 79 20 99 01/08/18 11:08 78 20 100 Venturi Mask 30 01/08/18 09:15 83 143/51 01/08/18 08:00 64 01/08/18 08:00 97.7 83 22 143/51 96 Venturi Mask 30 97.7 83 Intake and Output 01/08/18 01/09/18 19:00 07:00 Intake Total 850 ml 160 ml Balance 850 ml 160 ml Intake Oral 750 ml 100 ml IV Total 100 ml 60 ml # Voids 3 1 # Bowel Movements 1 Laboratory Tests 01/08/18 20:00: Urine Total Protein [Pending], Urine Albumin (%) [Pending], Urine Alpha-1- Globulins (%) [Pending], Urine Fizfh-6-Youqtkfhu (%) [Pending], Urine Beta- Globulin (%) [Pending], Urine Gamma Globulin (%) [Pending], Ur Protein Electrophoresis M-Cristi [Pending], Urine Protein Electrophoresis Intrp [Pending] 01/09/18 03:30: White Blood Count 12.4H, Red Blood Count 3.31L, Hemoglobin 9.0L, Hematocrit 27.3L, Mean Corpuscular Volume 83, Mean Corpuscular Hemoglobin 27.1, Mean Corpuscular Hemoglobin Concent 32.8, Red Cell Distribution Width 12.8, Platelet Count 151, Mean Platelet Volume 6.7, Neutrophils (%) (Auto) , Lymphocytes (%) ( Auto) , Monocytes (%) (Auto) , Eosinophils (%) (Auto) , Basophils (%) (Auto) , Sodium Level 136, Potassium Level 4.3, Chloride Level 99, Carbon Dioxide Level 30, Anion Gap 7, Blood Urea Nitrogen 28H, Creatinine 1.1, Estimat Glomerular Filtration Rate , Glucose Level 150H, Calcium Level 8.4L Height (Feet): 5 Height (Inches): 2.00 Weight (Pounds): 170 General Appearance: no apparent distress EENT: TMs normal Neck: normal alignment Cardiovascular: normal peripheral pulses Respiratory/Chest: normal breath sounds Abdomen: non tender Extremities: non-tender Edema: 1+ Leg (L), 1+ Leg (R) Edema: mild edema Neurologic: no motor/sensory deficits Skin: warm/dry Ramez Alonzo MD January 09, 2018 07:23
[2018-01-09 08:00] VITALS: BP 146/56
[2018-01-09] MEDS: Donepezil 10mg tab ORAL SCH (08:33)
[2018-01-09] MEDS: PARoxetine 20mg tab ORAL SCH (08:33)
[2018-01-09] MEDS: Heparin 5000 units/ml inj SUBQ SCH ×2 (08:35→20:51)
--- NOTE | 2018-01-09 08:35 | Diagnostic Imaging Report ---
Indication: Abnormal renal function tests pain Technique: Clark-scale and duplex images of the upper abdomen were obtained Comparison: none Findings: Gallbladder is unremarkable, without stones, wall thickening, nor pericholecystic fluid. Sonographic Ramirez's sign is negative. Common bile duct measures 2 mm in diameter. No intrahepatic biliary ductal dilatation. Liver demonstrates normal echogenicity, no focal abnormality. Portal vein and hepatic veins are patent. Pancreas is unremarkable. Spleen is unremarkable. Left kidney measures 10.4 cm in length. Right kidney measures 11 cm length. Both kidneys demonstrate normal echogenicity. There is equivocal mild fullness of the left renal collecting system. No focal abnormality . Abdominal aorta is obscured by bowel gas bowel gas . Impression: Equivocal mild left hydronephrosis. No other significant abnormality demonstrated. Negative for gallstones or dilated ducts
--- NOTE | 2018-01-09 08:46 | Consultation ---
DATE OF CONSULTATION: 01/08/2018 INFECTIOUS DISEASE CONSULTATION CONSULTING PHYSICIAN: Jonathan Amos M.D. REFERRING PHYSICIAN: Fausto Ruiz D.O. REASON FOR CONSULTATION: Evaluation of the patient for pneumonia. HISTORY OF PRESENT ILLNESS: The patient is an 87-year-old female with multiple medical problems, who was brought from [facility] to this medical center due to shortness of breath, cough, and sputum production. The patient initially was started on BiPAP for respiratory failure. Infectious Disease consultation has been requested for further evaluation of the patient and antibiotic management. PAST MEDICAL HISTORY: 1. Asthma. 2. Dementia. 3. Hypertension. 4. GERD. 5. History of breast cancer. 6. Osteoarthritis. 7. Depression. 8. Anxiety. MEDICATIONS: Solu-Medrol and Levaquin. ALLERGIES: No known drug allergies. SOCIAL HISTORY: The patient was in the [facility] prior to admission. PHYSICAL EXAMINATION: VITAL SIGNS: Temperature 97, blood pressure 143/51, pulse 86, and respiratory rate 18. HEENT: No pale conjunctivae. No icterus. NECK: No lymphadenopathy. CHEST: Coarse breathing sounds. HEART: S1 and S2. ABDOMEN: Obese and nontender. EXTREMITIES: No cyanosis. NEUROLOGIC: Awake. LABORATORY AND DIAGNOSTIC DATA: WBC of 13, hemoglobin 9, and platelets 101,000. UA, 10 to 15 white blood cells. Hepatitis panel pending. HIV negative. BUN 26 and creatinine 1. ALT, AST, and alkaline phosphatase unremarkable. Urine culture is growing mixed gram-negative bacteria. Blood culture is pending. Chest x-ray, NAPD. Ejection fraction is 60%. ASSESSMENT: The patient is an 87-year-old female with, 1. Chronic obstructive pulmonary disease/bronchitis. 2. Leukocytosis (the patient is on the steroids). 3. Thrombocytopenia, improving. 4. Negative serology for human immunodeficiency virus and hepatitis panel. 5. Anemia. 6. Positive urine culture with mixed gram negative organisms, no clinical significance. PLAN: 1. We will continue the patient on Levaquin day 2/. 2. Monitor CBC. 3. Monitor BMP. 4. Monitor chest x-ray. 5. Monitor cultures (blood, urine). 6. Based on the patient's clinical course and labs, we will do further recommendations. Thank you, Dr. Fausto Ruiz, for allowing me to participate in the care of this patient. I will follow the patient with you during this hospitalization. Jonathan Amos M.D. DR: LEO JOB#: [id number] CC:
--- NOTE | 2018-01-09 11:35 | Pulmonology Progress Note ---
Assessment/Plan Problems: (1) Acute respiratory failure (2) Status asthmaticus (3) Depression (4) Hypertension (5) History of asthma (6) Dementia Assessment/Plan improving no sputum cultures yet, Urine has mixed organism, Blood cultures are negative. decrease steroids to qd continue abx, levofloxacin titrate fio2 to sat of 92% still a little wheezing could go to med/surg if ok with cardiology dvt prophylaxis Subjective ROS Limited/Unobtainable: No Interval Events: doing better Allergies: Coded Allergies: No Known Allergies (Verified , 06/07/09) Objective Last 24 Hour Vital Signs Date Time Temp Pulse Resp B/P (MAP) Pulse Ox O2 Delivery O2 Flow Rate FiO2 01/09/18 08:33 113 146/56 01/09/18 08:00 88 01/09/18 08:00 98.1 113 18 146/56 99 Nasal Cannula 3.0 98.1 95 01/09/18 07:13 84 18 99 Nasal Cannula 3.0 32 01/09/18 07:06 89 20 98 Nasal Cannula 3.0 01/09/18 04:25 125/61 01/09/18 04:00 132 01/09/18 03:47 98 18 99 Nasal Cannula 2.0 28 01/09/18 03:27 84 20 98 Nasal Cannula 3.0 01/09/18 00:00 98.7 95 32 144/70 99 Nasal Cannula 3.0 98.7 95 01/08/18 23:24 100 01/08/18 22:56 123 18 99 Nasal Cannula 2.0 28 01/08/18 22:46 101 20 98 Nasal Cannula 3.0 01/08/18 20:35 133 01/08/18 20:00 99.1 138 20 149/64 95 Nasal Cannula 3.0 99.1 138 01/08/18 19:47 127 18 99 Nasal Cannula 2.0 28 01/08/18 19:37 105 20 96 Nasal Cannula 2.0 01/08/18 17:52 97 99/60 01/08/18 16:03 74 128/56 01/08/18 16:00 97.0 97 22 99/60 97 Nasal Cannula 3.0 97.0 97 01/08/18 16:00 102 01/08/18 15:20 74 18 99 Nasal Cannula 2.0 28 01/08/18 15:10 88 20 100 Venturi Mask 30 01/08/18 15:10 81 18 99 01/08/18 13:04 76 20 98 01/08/18 12:00 88 01/08/18 12:00 98.9 81 18 128/56 99 Venturi Mask 30 98.9 81 Intake and Output 01/08/18 01/09/18 19:00 07:00 Intake Total 850 ml 160 ml Balance 850 ml 160 ml Intake Oral 750 ml 100 ml IV Total 100 ml 60 ml # Voids 3 1 # Bowel Movements 1 General Appearance: WD/WN HEENT: normocephalic, atraumatic Respiratory/Chest: chest wall non-tender, crackles/rales Breasts: no masses Cardiovascular: normal peripheral pulses, normal rate Abdomen: normal bowel sounds, soft, non tender Genitourinary: normal external genitalia Extremities: no clubbing Skin: no rash Neurologic/Psychiatric: donkey doctor II-XII grossly normal Microbiology Date/Time Source Procedure Growth Status 01/06/18 14:47 Urine,Clean Catch Urine Culture - Final Mixed Gram Positive Organism Complete Laboratory Tests 01/08/18 20:00: Urine Total Protein [Pending], Urine Albumin (%) [Pending], Urine Alpha-1- Globulins (%) [Pending], Urine Hgdwg-9-Kkmhshgir (%) [Pending], Urine Beta- Globulin (%) [Pending], Urine Gamma Globulin (%) [Pending], Ur Protein Electrophoresis M-Cristi [Pending], Urine Protein Electrophoresis Intrp [Pending] 01/09/18 03:30: White Blood Count 12.4H, Red Blood Count 3.31L, Hemoglobin 9.0L, Hematocrit 27.3L, Mean Corpuscular Volume 83, Mean Corpuscular Hemoglobin 27.1, Mean Corpuscular Hemoglobin Concent 32.8, Red Cell Distribution Width 12.8, Platelet Count 151, Mean Platelet Volume 6.7, Neutrophils (%) (Auto) , Lymphocytes (%) ( Auto) , Monocytes (%) (Auto) , Eosinophils (%) (Auto) , Basophils (%) (Auto) , Sodium Level 136, Potassium Level 4.3, Chloride Level 99, Carbon Dioxide Level 30, Anion Gap 7, Blood Urea Nitrogen 28H, Creatinine 1.1, Estimat Glomerular Filtration Rate , Glucose Level 150H, Calcium Level 8.4L Current Medications Medications (Trade) Dose Ordered Sig/Marce Route PRN Reason Start Time Stop Time Status Last Admin Dose Admin Acetaminophen (Tylenol) 650 mg Q4H PRN ORAL fever 01/06/18 16:00 02/05/18 15:59 Albuterol/ Ipratropium (Albuterol/ Ipratropium) 3 ml Q4H HHN 01/07/18 16:00 01/12/18 15:59 01/09/18 07:08 Amlodipine Besylate (Norvasc) 5 mg TID ORAL 01/07/18 09:00 02/06/18 08:59 01/09/18 08:33 Clonidine HCl (Catapres Tab) 0.1 mg Q4H PRN ORAL sbp more than 160 01/06/18 16:00 02/05/18 15:59 01/06/18 21:19 Dextrose (Dextrose 50%) STAT PRN IV Hypoglycemia 01/06/18 16:00 02/05/18 15:59 Donepezil HCl (Aricept) 10 mg DAILY ORAL 01/07/18 09:00 02/06/18 08:59 01/09/18 08:33 Heparin Sodium (Porcine) (Heparin 5000 units/ml) 5,000 units EVERY 12 HOURS SUBQ 01/06/18 21:00 02/05/18 20:59 01/09/18 08:35 Iron Sucrose 100 mg/Sodium Chloride 60 ml @ 240 mls/hr BEDTIME IVPB 01/08/18 21:00 01/12/18 21:14 01/09/18 00:28 Levofloxacin 100 ml @ 100 mls/hr Q24H IVPB 01/07/18 12:00 01/14/18 11:59 01/08/18 12:44 Levothyroxine Sodium (Synthroid) 50 mcg ACBREAKFAST ORAL 01/07/18 06:30 02/06/18 06:29 01/09/18 06:43 Lorazepam (Ativan 2mg/ml 1ml) 0.5 mg Q4H PRN IV For Anxiety 01/06/18 16:00 01/13/18 15:59 Methylprednisolone Sodium Succinate (Solu-MEDROL) 60 mg EVERY 12 HOURS IV 01/08/18 21:00 02/05/18 17:59 01/09/18 08:32 Nitroglycerin (Ntg) 0.4 mg Q5M X 3 DOSES PRN SL Prn Chest Pain 01/06/18 16:00 02/05/18 15:59 Ondansetron HCl (Zofran) 4 mg Q6H PRN IVP Nausea & Vomiting 01/06/18 16:00 02/05/18 15:59 Paroxetine HCl (Paxil) 20 mg DAILY ORAL 01/07/18 09:00 02/06/18 08:59 01/09/18 08:33 Primidone (Mysoline) 50 mg DAILY ORAL 01/07/18 09:00 02/06/18 08:59 01/09/18 08:34 Promethazine HCl/ Codeine (Phenergan with Codeine) 5 ml Q6H PRN ORAL cough 01/06/18 16:00 02/05/18 15:59 Temazepam (Restoril) 15 mg HSPRN PRN ORAL Insomnia 01/06/18 16:00 01/13/18 15:59 01/08/18 20:03 Yeyo Moon MD January 09, 2018 11:35
[2018-01-09 12:00] VITALS: BP 159/74
--- NOTE | 2018-01-09 13:56 | Nephrology Progress Note ---
Assessment/Plan Assessment 1.isovolemic hyponatremia 2..hyperkalemia resolved 3.elevated bun due to steroid 4.asthma exace 4.PNA Plan low k diet free water restriction monitoring renal function avoid NSAID Replace electrolyte as need it Subjective Constitutional: Reports: no symptoms Neurologic/Psychiatric: Reports: no symptoms Subjective alert and awake her wheezing has improved on nasal canula feeling better today Objective Objective Last 24 Hour Vital Signs Date Time Temp Pulse Resp B/P (MAP) Pulse Ox O2 Delivery O2 Flow Rate FiO2 01/09/18 13:11 99 159/74 01/09/18 12:00 88 01/09/18 11:32 89 20 99 Nasal Cannula 3.0 32 01/09/18 11:25 87 20 97 Nasal Cannula 3.0 01/09/18 08:33 113 146/56 01/09/18 08:00 88 01/09/18 08:00 98.1 113 18 146/56 99 Nasal Cannula 3.0 98.1 95 01/09/18 07:13 84 18 99 Nasal Cannula 3.0 32 01/09/18 07:06 89 20 98 Nasal Cannula 3.0 01/09/18 04:25 125/61 01/09/18 04:00 132 01/09/18 03:47 98 18 99 Nasal Cannula 2.0 28 01/09/18 03:27 84 20 98 Nasal Cannula 3.0 01/09/18 00:00 98.7 95 32 144/70 99 Nasal Cannula 3.0 98.7 95 01/08/18 23:24 100 01/08/18 22:56 123 18 99 Nasal Cannula 2.0 28 01/08/18 22:46 101 20 98 Nasal Cannula 3.0 01/08/18 20:35 133 01/08/18 20:00 99.1 138 20 149/64 95 Nasal Cannula 3.0 99.1 138 01/08/18 19:47 127 18 99 Nasal Cannula 2.0 28 01/08/18 19:37 105 20 96 Nasal Cannula 2.0 01/08/18 17:52 97 99/60 01/08/18 16:03 74 128/56 01/08/18 16:00 97.0 97 22 99/60 97 Nasal Cannula 3.0 97.0 97 01/08/18 16:00 102 01/08/18 15:20 74 18 99 Nasal Cannula 2.0 28 01/08/18 15:10 88 20 100 Venturi Mask 30 01/08/18 15:10 81 18 99 Intake and Output 01/08/18 01/09/18 19:00 07:00 Intake Total 850 ml 160 ml Balance 850 ml 160 ml Intake Oral 750 ml 100 ml IV Total 100 ml 60 ml # Voids 3 1 # Bowel Movements 1 Laboratory Tests 01/08/18 20:00: Urine Total Protein [Pending], Urine Albumin (%) [Pending], Urine Alpha-1- Globulins (%) [Pending], Urine Kkkea-9-Crrpywtvf (%) [Pending], Urine Beta- Globulin (%) [Pending], Urine Gamma Globulin (%) [Pending], Ur Protein Electrophoresis M-Cristi [Pending], Urine Protein Electrophoresis Intrp [Pending] 01/09/18 03:30: White Blood Count 12.4H, Red Blood Count 3.31L, Hemoglobin 9.0L, Hematocrit 27.3L, Mean Corpuscular Volume 83, Mean Corpuscular Hemoglobin 27.1, Mean Corpuscular Hemoglobin Concent 32.8, Red Cell Distribution Width 12.8, Platelet Count 151, Mean Platelet Volume 6.7, Neutrophils (%) (Auto) , Lymphocytes (%) ( Auto) , Monocytes (%) (Auto) , Eosinophils (%) (Auto) , Basophils (%) (Auto) , Sodium Level 136, Potassium Level 4.3, Chloride Level 99, Carbon Dioxide Level 30, Anion Gap 7, Blood Urea Nitrogen 28H, Creatinine 1.1, Estimat Glomerular Filtration Rate , Glucose Level 150H, Calcium Level 8.4L Height (Feet): 5 Height (Inches): 2.00 Weight (Pounds): 170 Objective Head: normocephalic, atraumatic Eyes: bilateral eye normal inspection, bilateral eye PERRL ENT: moist mucus membranes Neck: supple Respiratory: respiratory distress - mild, accessory muscle use, wheezing, expiration, inspiration Cardiovascular #1: regular rate, rhythm Cardiovascular #2: 2+ radial (R) Gastrointestinal: normal inspection, non tender, no mass, non-distended, decreased bowel sounds Musculoskeletal: back normal, normal range of motion Neurologic: alert, motor strength/tone normal - generalized weakness, but accurate with hands, sensory intact Psychiatric: depressed affect Skin: normal inspection, warm/Laverne Tirado MD January 09, 2018 13:54
--- NOTE | 2018-01-09 14:42 | General Progress Note ---
Assessment/Plan Problem List: (1) COPD exacerbation ICD Codes: J44.1 - Chronic obstructive pulmonary disease with (acute) exacerbation SNOMED: 973278629 (2) UTI (urinary tract infection) ICD Codes: N39.0 - Urinary tract infection, site not specified SNOMED: 84214370 Qualifiers: (3) Dyspnea ICD Codes: R06.00 - Dyspnea, unspecified SNOMED: 835823591 Qualifiers: (4) Dementia ICD Codes: F03.90 - Unspecified dementia without behavioral disturbance SNOMED: 50462415 (5) Hypertension ICD Codes: I10 - Essential (primary) hypertension SNOMED: 94411479 (6) Acute respiratory failure ICD Codes: J96.00 - Acute respiratory failure, unspecified whether with hypoxia or hypercapnia SNOMED: 76866831 (7) Shortness of breath ICD Codes: R06.02 - Shortness of breath SNOMED: 432332202 Status: unchanged Assessment/Plan o2 pulm tx abx ot pt diet cbc bmp am Subjective Constitutional: Reports: weakness Allergies: Coded Allergies: No Known Allergies (Verified , 06/07/09) All Systems: reviewed and negative except above Subjective o2nc sl sob Objective Last 24 Hour Vital Signs Date Time Temp Pulse Resp B/P (MAP) Pulse Ox O2 Delivery O2 Flow Rate FiO2 01/09/18 13:11 99 159/74 01/09/18 12:00 88 01/09/18 12:00 98.4 99 19 159/74 99 Nasal Cannula 3.0 98.4 95 01/09/18 11:32 89 20 99 Nasal Cannula 3.0 32 01/09/18 11:25 87 20 97 Nasal Cannula 3.0 01/09/18 08:33 113 146/56 01/09/18 08:00 88 01/09/18 08:00 98.1 113 18 146/56 99 Nasal Cannula 3.0 98.1 95 01/09/18 07:13 84 18 99 Nasal Cannula 3.0 32 01/09/18 07:06 89 20 98 Nasal Cannula 3.0 01/09/18 04:25 125/61 01/09/18 04:00 132 01/09/18 03:47 98 18 99 Nasal Cannula 2.0 28 01/09/18 03:27 84 20 98 Nasal Cannula 3.0 01/09/18 00:00 98.7 95 32 144/70 99 Nasal Cannula 3.0 98.7 95 01/08/18 23:24 100 01/08/18 22:56 123 18 99 Nasal Cannula 2.0 28 01/08/18 22:46 101 20 98 Nasal Cannula 3.0 01/08/18 20:35 133 01/08/18 20:00 99.1 138 20 149/64 95 Nasal Cannula 3.0 99.1 138 01/08/18 19:47 127 18 99 Nasal Cannula 2.0 28 01/08/18 19:37 105 20 96 Nasal Cannula 2.0 01/08/18 17:52 97 99/60 01/08/18 16:03 74 128/56 01/08/18 16:00 97.0 97 22 99/60 97 Nasal Cannula 3.0 97.0 97 01/08/18 16:00 102 01/08/18 15:20 74 18 99 Nasal Cannula 2.0 28 01/08/18 15:10 88 20 100 Venturi Mask 30 01/08/18 15:10 81 18 99 Intake and Output 01/08/18 01/09/18 19:00 07:00 Intake Total 850 ml 160 ml Balance 850 ml 160 ml Intake Oral 750 ml 100 ml IV Total 100 ml 60 ml # Voids 3 1 # Bowel Movements 1 Laboratory Tests 01/08/18 20:00: Urine Total Protein [Pending], Urine Albumin (%) [Pending], Urine Alpha-1- Globulins (%) [Pending], Urine Prsml-5-Tsezzawzs (%) [Pending], Urine Beta- Globulin (%) [Pending], Urine Gamma Globulin (%) [Pending], Ur Protein Electrophoresis M-Cristi [Pending], Urine Protein Electrophoresis Intrp [Pending] 01/09/18 03:30: White Blood Count 12.4H, Red Blood Count 3.31L, Hemoglobin 9.0L, Hematocrit 27.3L, Mean Corpuscular Volume 83, Mean Corpuscular Hemoglobin 27.1, Mean Corpuscular Hemoglobin Concent 32.8, Red Cell Distribution Width 12.8, Platelet Count 151, Mean Platelet Volume 6.7, Neutrophils (%) (Auto) , Lymphocytes (%) ( Auto) , Monocytes (%) (Auto) , Eosinophils (%) (Auto) , Basophils (%) (Auto) , Sodium Level 136, Potassium Level 4.3, Chloride Level 99, Carbon Dioxide Level 30, Anion Gap 7, Blood Urea Nitrogen 28H, Creatinine 1.1, Estimat Glomerular Filtration Rate , Glucose Level 150H, Calcium Level 8.4L Height (Feet): 5 Height (Inches): 2.00 Weight (Pounds): 170 General Appearance: lethargic EENT: normal ENT inspection Neck: normal alignment Cardiovascular: normal peripheral pulses, normal rate, regular rhythm Respiratory/Chest: chest wall non-tender, decreased breath sounds Abdomen: normal bowel sounds, non tender, soft Extremities: normal inspection Edema: no edema noted Arm (L), no edema noted Arm (R), no edema noted Leg (L), no edema noted Leg (R), no edema noted Pedal (L), no edema noted Pedal (R), no edema noted Generalized Neurologic: motor weakness Skin: normal pigmentation, warm/dry Fausto Ruiz DO January 09, 2018 14:42
[2018-01-09] MEDS ORDERED: Nitroglycerin Subl 0.4mg tab SL PRN (15:45)
[2018-01-09 16:00] VITALS: BP 140/55
[2018-01-09] MEDS ORDERED: Promethazine/Codeine 5ml UD ORAL PRN (16:00)
[2018-01-09] MEDS ORDERED: LORazepam Inj 2mg/ml 1ml IV PRN (16:00)
--- NOTE | 2018-01-09 16:16 | Diagnostic Imaging Report ---
EXAM: XR Chest, 1 View CLINICAL HISTORY: DYSPNEA TECHNIQUE: Frontal view of the chest. COMPARISON: No relevant prior studies available. FINDINGS: Lungs: Increased interstitial markings. The lungs are otherwise clear without focal consolidation. Pleural space: Unremarkable. No pneumothorax. Heart: Unremarkable. No cardiomegaly. Mediastinum: Unremarkable. Bones/joints: Unremarkable. Vasculature: Atherosclerotic calcifications are noted within the aortic arch. Tubes, lines and devices: EKG patches overlie the thorax. IMPRESSION: Increased interstitial markings. This may be related to mild pulmonary vascular congestion versus viral/interstitial pneumonitis.
--- NOTE | 2018-01-09 18:47 | Infectious Diseases Prog Note ---
Assessment/Plan Assessment/Plan Urine culture is growing mixed gram-negative bacteria. Blood culture is pending. Chest x-ray, NAPD. Ejection fraction is 60%. ASSESSMENT: The patient is an 87-year-old female with, COPD /bronchitis. Leukocytosis (the patient is on the steroids). NEG HIV and hepatitis panel Positive urine culture with mixed gram negative organisms, no clinical significance. Thrombocytopenia, improving. Asthma. Dementia. Hypertension. GERD. History of breast cancer. Osteoarthritis. Depression. Anxiety. PLAN: continue the patient on Levaquin day . Monitor CBC. Monitor BMP. Monitor chest x-ray. Monitor cultures (blood, urine). Subjective Allergies: Coded Allergies: No Known Allergies (Verified , 06/07/09) Subjective Afebrile Objective Vital Signs Last 24 Hour Vital Signs Date Time Temp Pulse Resp B/P (MAP) Pulse Ox O2 Delivery O2 Flow Rate FiO2 01/09/18 17:45 95 140/55 01/09/18 16:00 97.8 95 18 140/55 97 97.8 01/09/18 15:13 92 20 99 Nasal Cannula 3.0 32 01/09/18 15:06 90 20 97 Nasal Cannula 3.0 01/09/18 13:11 99 159/74 01/09/18 12:00 88 01/09/18 12:00 98.4 99 19 159/74 99 Nasal Cannula 3.0 98.4 95 01/09/18 11:32 89 20 99 Nasal Cannula 3.0 32 01/09/18 11:25 87 20 97 Nasal Cannula 3.0 01/09/18 08:33 113 146/56 01/09/18 08:00 88 01/09/18 08:00 98.1 113 18 146/56 99 Nasal Cannula 3.0 98.1 95 01/09/18 07:13 84 18 99 Nasal Cannula 3.0 32 01/09/18 07:06 89 20 98 Nasal Cannula 3.0 01/09/18 04:25 125/61 01/09/18 04:00 132 01/09/18 03:47 98 18 99 Nasal Cannula 2.0 28 01/09/18 03:27 84 20 98 Nasal Cannula 3.0 01/09/18 00:00 98.7 95 32 144/70 99 Nasal Cannula 3.0 98.7 95 01/08/18 23:24 100 01/08/18 22:56 123 18 99 Nasal Cannula 2.0 28 01/08/18 22:46 101 20 98 Nasal Cannula 3.0 01/08/18 20:35 133 01/08/18 20:00 99.1 138 20 149/64 95 Nasal Cannula 3.0 99.1 138 01/08/18 19:47 127 18 99 Nasal Cannula 2.0 28 01/08/18 19:37 105 20 96 Nasal Cannula 2.0 Height (Feet): 5 Height (Inches): 2.00 Weight (Pounds): 170 HEENT: anicteric Respiratory/Chest: no respiratory distress Cardiovascular: regular rhythm Abdomen: no organomegaly Laboratory Tests Test 01/08/18 20:00 01/09/18 03:30 Urine Total Protein Pending Urine Albumin (%) Pending Urine [id number] (%) Pending Urine [id number]-[id number] (%) Pending Urine Beta-Globulin (%) Pending Urine Gamma Globulin (%) Pending Ur Protein Electrophoresis M-Cristi Pending Urine Protein Electrophoresis Intrp Pending White Blood Count 12.4 K/UL (4.8-10.8) H Red Blood Count 3.31 M/UL (4.20-5.40) L Hemoglobin 9.0 G/DL (12.0-16.0) L Hematocrit 27.3 % (37.0-47.0) L Mean Corpuscular Volume 83 FL (80-99) Mean Corpuscular Hemoglobin 27.1 PG (27.0-31.0) Mean Corpuscular Hemoglobin Concent 32.8 G/DL (32.0-36.0) Red Cell Distribution Width 12.8 % (11.6-14.8) Platelet Count 151 K/UL (150-450) Mean Platelet Volume 6.7 FL (6.5-10.1) Neutrophils (%) (Auto) % (45.0-75.0) Lymphocytes (%) (Auto) % (20.0-45.0) Monocytes (%) (Auto) % (1.0-10.0) Eosinophils (%) (Auto) % (0.0-3.0) Basophils (%) (Auto) % (0.0-2.0) Sodium Level 136 MMOL/L (136-145) Potassium Level 4.3 MMOL/L (3.5-5.1) Chloride Level 99 MMOL/L (98-107) Carbon Dioxide Level 30 MMOL/L (21-32) Anion Gap 7 mmol/L (5-15) Blood Urea Nitrogen 28 mg/dL (7-18) H Creatinine 1.1 MG/DL (0.55-1.30) Estimat Glomerular Filtration Rate mL/min (>60) Glucose Level 150 MG/DL (74-106) H Calcium Level 8.4 MG/DL (8.5-10.1) L Current Medications Medications (Trade) Dose Ordered Sig/Marce Route PRN Reason Start Time Stop Time Status Last Admin Dose Admin Acetaminophen (Tylenol) 650 mg Q4H PRN ORAL T>100.5 01/09/18 16:00 02/05/18 15:59 Albuterol/ Ipratropium (Albuterol/ Ipratropium) 3 ml Q4HRT HHN 01/09/18 19:00 01/14/18 18:59 Amlodipine Besylate (Norvasc) 5 mg TID ORAL 01/09/18 18:00 02/06/18 08:59 01/09/18 17:45 Clonidine HCl (Catapres Tab) 0.1 mg Q4H PRN ORAL sbp more than 160 01/09/18 16:00 02/05/18 15:59 Dextrose (Dextrose 50%) 25 ml PRN IV Hypoglycemia 01/09/18 16:00 02/08/18 15:59 Dextrose (Dextrose 50%) 50 ml PRN IV hypoglycemia 01/09/18 16:00 02/08/18 15:59 Donepezil HCl (Aricept) 10 mg DAILY ORAL 01/10/18 09:00 02/06/18 08:59 Heparin Sodium (Porcine) (Heparin 5000 units/ml) 5,000 units EVERY 12 HOURS SUBQ 01/09/18 21:00 02/05/18 20:59 Iron Sucrose 100 mg/Sodium Chloride 60 ml @ 240 mls/hr BEDTIME IV 01/09/18 21:00 01/12/18 21:14 Levofloxacin 100 ml @ 100 mls/hr Q24H IVPB 01/10/18 12:00 01/14/18 11:59 Levothyroxine Sodium (Synthroid) 50 mcg ACBREAKFAST ORAL 01/10/18 06:30 02/06/18 06:29 Lorazepam (Ativan 2mg/ml 1ml) 0.5 mg Q4H PRN IV For Anxiety 01/09/18 16:00 01/13/18 15:59 Methylprednisolone Sodium Succinate (Solu-MEDROL) 60 mg DAILY IV 01/10/18 09:00 02/05/18 17:59 Nitroglycerin (Ntg) 0.4 mg Q5M X 3 DOSES PRN SL Prn Chest Pain 01/09/18 15:45 02/05/18 15:59 Ondansetron HCl (Zofran) 4 mg Q6H PRN IVP Nausea & Vomiting 01/09/18 16:00 02/05/18 15:59 Paroxetine HCl (Paxil) 20 mg DAILY ORAL 01/10/18 09:00 02/06/18 08:59 Primidone (Mysoline) 50 mg DAILY ORAL 01/10/18 09:00 02/06/18 08:59 Promethazine HCl/ Codeine (Phenergan with Codeine) 5 ml Q6H PRN ORAL cough 01/09/18 16:00 02/05/18 15:59 Temazepam (Restoril) 15 mg HSPRN PRN ORAL Insomnia 01/09/18 21:00 01/13/18 20:59 Jonathan Amos MD January 09, 2018 18:47
--- NOTE | 2018-01-09 19:31 | Neurology Progress Note ---
Interim History Interim History Interim History Ms. Fitzgerald feels much better today. She is in excellent spirits. She is still wheezing - but as per her daughter, even when she is perfectly well she wheezes. The mind is clearer. She continues to be cognitively impoverished. She has not been out of bed yet. She is eager to go home. Review of Systems Neuro Review of Systems Benign. Objective Physical Exam Last Vital Signs Date Time Temp Pulse Resp B/P (MAP) Pulse Ox O2 Delivery O2 Flow Rate FiO2 01/09/18 17:45 95 140/55 01/09/18 16:00 97.8 18 97 97.8 01/09/18 15:13 Nasal Cannula 3.0 32 Laboratory Tests Test 01/08/18 20:00 01/09/18 03:30 Urine Total Protein Pending Urine Albumin (%) Pending Urine Gsunz-7-Nncckrtao (%) Pending Urine Fhrsm-0-Fiqbroynr (%) Pending Urine Beta-Globulin (%) Pending Urine Gamma Globulin (%) Pending Ur Protein Electrophoresis M-Cristi Pending Urine Protein Electrophoresis Intrp Pending White Blood Count 12.4 K/UL (4.8-10.8) H Red Blood Count 3.31 M/UL (4.20-5.40) L Hemoglobin 9.0 G/DL (12.0-16.0) L Hematocrit 27.3 % (37.0-47.0) L Mean Corpuscular Volume 83 FL (80-99) Mean Corpuscular Hemoglobin 27.1 PG (27.0-31.0) Mean Corpuscular Hemoglobin Concent 32.8 G/DL (32.0-36.0) Red Cell Distribution Width 12.8 % (11.6-14.8) Platelet Count 151 K/UL (150-450) Mean Platelet Volume 6.7 FL (6.5-10.1) Neutrophils (%) (Auto) % (45.0-75.0) Lymphocytes (%) (Auto) % (20.0-45.0) Monocytes (%) (Auto) % (1.0-10.0) Eosinophils (%) (Auto) % (0.0-3.0) Basophils (%) (Auto) % (0.0-2.0) Sodium Level 136 MMOL/L (136-145) Potassium Level 4.3 MMOL/L (3.5-5.1) Chloride Level 99 MMOL/L (98-107) Carbon Dioxide Level 30 MMOL/L (21-32) Anion Gap 7 mmol/L (5-15) Blood Urea Nitrogen 28 mg/dL (7-18) H Creatinine 1.1 MG/DL (0.55-1.30) Estimat Glomerular Filtration Rate mL/min (>60) Glucose Level 150 MG/DL (74-106) H Calcium Level 8.4 MG/DL (8.5-10.1) L Neurologic Exam Objective PHYSICAL EXAMINATION: GENERAL: She is a well-developed, well-nourished, obese, lady, lying in bed, in no acute distress. HEAD: Normocephalic and atraumatic. EENT: Examination benign. NECK: No neck rigidity was observed. NEUROLOGIC EXAMINATION: MENTAL STATUS EXAMINATION: She was awake and alert. She was oriented to self only. She had no idea where she was or what the date was. She was able to recall 3/3 words immediately, but could not remember any of them in 1 minute and 3 minutes. She was unable to tell me who the present President was and who prior presidents were. Her mathematical skills were impaired. Her visuospatial function was also impaired. SPEECH: She had no dysarthria. LANGUAGE: Could not be tested adequately. CRANIAL NERVE EXAMINATION: II: The visual lugo were intact on confrontation testing. III, IV & : The external ocular movements were full and the pupils 3 mm in diameter, equal, round, regular, and reactive to light. V: She had normal facial sensations and the temporales, masseters, and pterygoids functioned normally. VII: She had normal facial expressions and no facial asymmetry. VIII: She was able to hear and had no nystagmus. IX & X: The gag reflex was present.. XI: The sternocleidomastoids and trapezii did function. XII: The tongue was in the midline. MOTOR SYSTEM: The tone was normal in all four extremities. Examination of muscle mass revealed no focal wasting. Examination of power revealed G 5/5 power with some generalized give-way weakness. SENSORY EXAMINATION: She had intact sensations to light touch. REFLEXES: Trace+ and bilaterally symmetrical at the biceps, triceps, brachioradialis, and knees. 0 at both ankles. The plantar responses were flexor bilaterally. STANCE & GAIT: Could not be tested. Impression/Recommendations Diagnostic Impression 1. Ms. Penny Fitzgerald is an 87-year-old, right-handed, lady, who does have a past history of hypertension, gastroesophageal reflux disease, essential tremor, asthma, breast cancer, and dementia, who was hospitalized for status asthmaticus. Of note is that, for the last few days, she has had a cough productive of sputum. 2. She feels much better today. She is in excellent spirits. She is still wheezing - but as per her daughter, even when she is perfectly well she wheezes. The mind is clearer. She continues to be cognitively impoverished. She has not been out of bed yet. 3. On neurological examination, at this time, she does demonstrate problems with orientation, recent and remote memory, visuospatial function, and higher cognitive function. She also exhibits mild generalized give-way weakness, globally diminished deep tendon reflexes, a 7-8 Hz tremor involving her hands, and inability to test stance and gait. 4. Laboratory data obtained on my initial evaluation revealed that her WBC count is elevated to 13,900 and her hemoglobin is low at 9.8. Her chemistry panel reveals a sodium that is low at 129, chloride low at 97, BUN elevated to 22, and glucose elevated to 153. The urinalysis reveals 2+ leukocyte esterase, 2 to 4 red blood cells, and 10 to 15 white blood cells per high-power field. In addition, many urinary bacteria were also seen in the urine. 5. The patient's history and neurological examination are most compatible with an underlying primary degenerative dementia most probably Alzheimer disease with a superimposed encephalopathy. The encephalopathy is most probably due to ongoing infectious processes involving the lungs and the urinary tract infection. Recommendations 1. Continue present management. 2. Treatment of acute infectious processes. 3. Treatment of pulmonary processes as per Dr. Moon. 4. Continue Aricept for memory stabilization. Kamaljit Figueroa M.D., M.S.P.H. KAMALJIT FIGUEROA January 09, 2018 19:31
[2018-01-09 20:00] VITALS: BP 148/61
[2018-01-09] MEDS: Iron Sucrose 100 MG in NS 55 ML IV SCH (20:49)
[2018-01-09] MEDS ORDERED: Tubing IV Secondary IV ONE (22:17)
[2018-01-09] MEDS ORDERED: NS 275ml ONE (22:17)
[2018-01-10] VITALS: BP 146/69
[2018-01-10] MEDS: Albuterol/Ipratropium 3ml neb HHN SCH ×6 (02:38→23:18)
[2018-01-10 04:00] VITALS: BP 148/72
[2018-01-10 07:48] LABS: BASOPHILS % (AUTO) 0.5 % (0.0-2.0); EOSINOPHILS % (AUTO) 1.5 % (0.0-3.0); HEMATOCRIT 28.9 % (37.0-47.0); HEMOGLOBIN 9.2 G/DL (12.0-16.0); LYMPHOCYTES % (AUTO) 14.7 % (20.0-45.0); MEAN CORPUSCULAR VOLUME 84 FL (80-99); MONOCYTES % (AUTO) 11.3 % (1.0-10.0); PLATELET COUNT 184 K/UL (150-450); RED BLOOD COUNT 3.46 M/UL (4.20-5.40); RED CELL DISTRIBUTION WIDTH 13.4 % (11.6-14.8); WHITE BLOOD COUNT 10.4 K/UL (4.8-10.8)
[2018-01-10 08:00] VITALS: BP 126/53
[2018-01-10 08:36] LABS: ALANINE AMINOTRANSFERASE 23 U/L (12-78); ALBUMIN 3.3 G/DL (3.4-5.0); ALBUMIN/GLOBULIN RATIO 0.8 (1.0-2.7); ALKALINE PHOSPHATASE 42 U/L (46-116); ANION GAP 7 mmol/L (5-15); ASPARTATE AMINO TRANSFERASE 26 U/L (15-37); BILIRUBIN,TOTAL 0.3 MG/DL (0.2-1.0); BLOOD UREA NITROGEN 20 mg/dL (7-18); CALCIUM 8.5 MG/DL (8.5-10.1); CARBON DIOXIDE 30 MMOL/L (21-32); CHLORIDE 101 MMOL/L (98-107); CREATININE 0.9 MG/DL (0.55-1.30); POTASSIUM 3.8 MMOL/L (3.5-5.1); SODIUM 138 MMOL/L (136-145)
--- NOTE | 2018-01-10 08:56 | Nephrology Progress Note ---
Assessment/Plan Assessment 1.isovolemic hyponatremia 2..hyperkalemia resolved 3.elevated bun due to steroid 4.asthma exace 4.PNA Plan low k diet free water restriction monitoring renal function avoid NSAID Replace electrolyte as need it Subjective Constitutional: Reports: malaise, weakness HEENT: Reports: no symptoms Genitourinary: Reports: no symptoms Neurologic/Psychiatric: Reports: no symptoms Subjective alert and awake her wheezing has improved on nasal canula transferred to [facility] Objective Objective Last 24 Hour Vital Signs Date Time Temp Pulse Resp B/P (MAP) Pulse Ox O2 Delivery O2 Flow Rate FiO2 01/10/18 08:00 98.1 102 20 126/53 97 98.1 01/10/18 06:55 99 22 99 Nasal Cannula 3.0 32 01/10/18 06:48 Nasal Cannula 3.0 32 01/10/18 06:48 97 Nasal Cannula 3.0 32 01/10/18 06:44 97 22 97 Nasal Cannula 3.0 32 01/10/18 04:00 Nasal Cannula 3.0 01/10/18 04:00 97.9 108 19 148/72 94 97.9 01/10/18 02:42 87 22 99 Nasal Cannula 3.0 32 01/10/18 02:36 82 20 97 Nasal Cannula 3.0 32 01/10/18 00:00 98.1 98 18 146/69 98 98.1 01/10/18 00:00 Nasal Cannula 3.0 01/09/18 23:10 91 20 99 Nasal Cannula 3.0 32 01/09/18 23:02 89 22 96 Nasal Cannula 3.0 32 01/09/18 20:00 Nasal Cannula 3.0 01/09/18 20:00 98.1 99 18 148/61 98 98.1 01/09/18 19:17 102 22 99 Nasal Cannula 3.0 32 01/09/18 19:09 105 22 97 Nasal Cannula 3.0 32 01/09/18 17:45 95 140/55 01/09/18 16:00 97.8 95 18 140/55 97 97.8 01/09/18 15:13 92 20 99 Nasal Cannula 3.0 32 01/09/18 15:06 90 20 97 Nasal Cannula 3.0 01/09/18 13:11 99 159/74 01/09/18 12:00 88 01/09/18 12:00 98.4 99 19 159/74 99 Nasal Cannula 3.0 98.4 95 01/09/18 11:32 89 20 99 Nasal Cannula 3.0 32 01/09/18 11:25 87 20 97 Nasal Cannula 3.0 Intake and Output 01/09/18 01/10/18 19:00 07:00 Intake Total 2403 ml 420 ml Balance 2403 ml 420 ml Intake Oral 2403 ml 360 ml IV Total 60 ml # Voids 3 Laboratory Tests 01/10/18 06:10: White Blood Count 10.4, Red Blood Count 3.46L, Hemoglobin 9.2L, Hematocrit 28.9L , Mean Corpuscular Volume 84, Mean Corpuscular Hemoglobin 26.5L, Mean Corpuscular Hemoglobin Concent 31.8L, Red Cell Distribution Width 13.4, Platelet Count 184, Mean Platelet Volume 6.3L, Neutrophils (%) (Auto) 72.0, Lymphocytes (%) (Auto) 14.7L, Monocytes (%) (Auto) 11.3H, Eosinophils (%) (Auto ) 1.5, Basophils (%) (Auto) 0.5, Sodium Level 138, Potassium Level 3.8, Chloride Level 101, Carbon Dioxide Level 30, Anion Gap 7, Blood Urea Nitrogen 20H, Creatinine 0.9, Estimat Glomerular Filtration Rate , Glucose Level 99, Calcium Level 8.5, Total Bilirubin 0.3, Aspartate Amino Transf (AST/SGOT) 26, Alanine Aminotransferase (ALT/SGPT) 23, Alkaline Phosphatase 42L, Pro-B-Type Natriuretic Peptide 1722H, Total Protein 7.4, Albumin 3.3L, Globulin 4.1, Albumin/Globulin Ratio 0.8L Height (Feet): 5 Height (Inches): 2.00 Weight (Pounds): 170 Objective Head: normocephalic, atraumatic Eyes: bilateral eye normal inspection, bilateral eye PERRL ENT: moist mucus membranes Neck: supple Respiratory: respiratory distress - mild, accessory muscle use, wheezing, expiration, inspiration Cardiovascular #1: regular rate, rhythm Cardiovascular #2: 2+ radial (R) Gastrointestinal: normal inspection, non tender, no mass, non-distended, decreased bowel sounds Musculoskeletal: back normal, normal range of motion Neurologic: alert, motor strength/tone normal - generalized weakness, but accurate with hands, sensory intact Psychiatric: depressed affect Skin: normal inspection, warm/Laverne Tirado MD January 10, 2018 08:56
[2018-01-10] MEDS ORDERED: Solu-MEDROL 125mg Inj IV SCH ×2 (09:00)
[2018-01-10] MEDS: Heparin 5000 units/ml inj SUBQ SCH ×2 (09:45→21:05)
[2018-01-10] MEDS: PARoxetine 20mg tab ORAL SCH (09:45)
[2018-01-10] MEDS: Donepezil 10mg tab ORAL SCH (09:46)
--- NOTE | 2018-01-10 09:51 | General Progress Note ---
Assessment/Plan Assessment/Plan # Thrombocytopenia -- workup has included hepatitis, hiv panel and us of the abdomen which did not show any findings --> currently has improved over the course of the last several days, now better than 50k --> transfuse to plt above 20k # Anemia of iron deficiency -- workup has been ordered including ferritin, tibc , b12, folate, tsh --> maintain hgb above 7, workup if any evidence for hemolysis --> started on iv iron 100mg x 5 days, finish course # Breast cancer history -- prior history unknown, imaging historically has been reviewed --> is not on any anti-hormonal drugs, obtain further history from family # HTN # GERD # Asthma # Dementia. Subjective Constitutional: Reports: no symptoms HEENT: Reports: no symptoms Cardiovascular: Reports: no symptoms Respiratory: Reports: no symptoms Gastrointestinal/Abdominal: Denies: no symptoms, abdomen distended, abdominal pain, black stools, tarry stools, blood in stool, constipated, diarrhea, difficulty swallowing, nausea, poor appetite, poor fluid intake, rectal bleeding , vomiting, other Genitourinary: Denies: no symptoms, burning, discharge, frequency, flank pain, hematuria, incontinence, pain, urgency, other Neurologic/Psychiatric: Denies: no symptoms, anxiety, depressed, emotional problems, headache, numbness, paresthesia, pre-existing deficit, seizure, tingling, tremors, weakness, other Endocrine: Denies: no symptoms, excessive sweating, flushing, intolerance to cold, intolerance to heat, increased hunger, increased thirst, increased urine, unexplained weight gain, unexplained weight loss, other Hematologic/Lymphatic: Denies: no symptoms, anemia, easy bleeding, easy bruising, other Allergies: Coded Allergies: No Known Allergies (Verified , 06/07/09) Subjective no events, on ct, has been sleeping overnight, no complaints Objective Last 24 Hour Vital Signs Date Time Temp Pulse Resp B/P (MAP) Pulse Ox O2 Delivery O2 Flow Rate FiO2 01/10/18 09:46 102 126/53 01/10/18 08:00 98.1 102 20 126/53 97 98.1 01/10/18 06:55 99 22 99 Nasal Cannula 3.0 32 01/10/18 06:48 Nasal Cannula 3.0 32 01/10/18 06:48 97 Nasal Cannula 3.0 32 01/10/18 06:44 97 22 97 Nasal Cannula 3.0 32 01/10/18 04:00 Nasal Cannula 3.0 01/10/18 04:00 97.9 108 19 148/72 94 97.9 01/10/18 02:42 87 22 99 Nasal Cannula 3.0 32 01/10/18 02:36 82 20 97 Nasal Cannula 3.0 32 01/10/18 00:00 98.1 98 18 146/69 98 98.1 01/10/18 00:00 Nasal Cannula 3.0 01/09/18 23:10 91 20 99 Nasal Cannula 3.0 32 01/09/18 23:02 89 22 96 Nasal Cannula 3.0 32 01/09/18 20:00 Nasal Cannula 3.0 01/09/18 20:00 98.1 99 18 148/61 98 98.1 01/09/18 19:17 102 22 99 Nasal Cannula 3.0 32 01/09/18 19:09 105 22 97 Nasal Cannula 3.0 32 01/09/18 17:45 95 140/55 01/09/18 16:00 97.8 95 18 140/55 97 97.8 01/09/18 15:13 92 20 99 Nasal Cannula 3.0 32 01/09/18 15:06 90 20 97 Nasal Cannula 3.0 01/09/18 13:11 99 159/74 01/09/18 12:00 88 01/09/18 12:00 98.4 99 19 159/74 99 Nasal Cannula 3.0 98.4 95 01/09/18 11:32 89 20 99 Nasal Cannula 3.0 32 01/09/18 11:25 87 20 97 Nasal Cannula 3.0 Intake and Output 01/09/18 01/10/18 19:00 07:00 Intake Total 2403 ml 420 ml Balance 2403 ml 420 ml Intake Oral 2403 ml 360 ml IV Total 60 ml # Voids 3 Laboratory Tests 01/10/18 06:10: White Blood Count 10.4, Red Blood Count 3.46L, Hemoglobin 9.2L, Hematocrit 28.9L , Mean Corpuscular Volume 84, Mean Corpuscular Hemoglobin 26.5L, Mean Corpuscular Hemoglobin Concent 31.8L, Red Cell Distribution Width 13.4, Platelet Count 184, Mean Platelet Volume 6.3L, Neutrophils (%) (Auto) 72.0, Lymphocytes (%) (Auto) 14.7L, Monocytes (%) (Auto) 11.3H, Eosinophils (%) (Auto ) 1.5, Basophils (%) (Auto) 0.5, Sodium Level 138, Potassium Level 3.8, Chloride Level 101, Carbon Dioxide Level 30, Anion Gap 7, Blood Urea Nitrogen 20H, Creatinine 0.9, Estimat Glomerular Filtration Rate , Glucose Level 99, Calcium Level 8.5, Total Bilirubin 0.3, Aspartate Amino Transf (AST/SGOT) 26, Alanine Aminotransferase (ALT/SGPT) 23, Alkaline Phosphatase 42L, Pro-B-Type Natriuretic Peptide 1722H, Total Protein 7.4, Albumin 3.3L, Globulin 4.1, Albumin/Globulin Ratio 0.8L Height (Feet): 5 Height (Inches): 2.00 Weight (Pounds): 170 General Appearance: no apparent distress EENT: TMs normal Neck: normal alignment Cardiovascular: normal rate Respiratory/Chest: normal breath sounds Abdomen: no organomegaly Extremities: non-tender Edema: 1+ Leg (L), 1+ Leg (R) Ramez Alonzo MD January 10, 2018 09:51
--- NOTE | 2018-01-10 10:00 | Diagnostic Imaging Report ---
Indication: Cough and dyspnea Technique: One view of the chest Comparison: 01/08/2018 Findings: The heart it is somewhat enlarged, although this is probably exaggerated by leftward patient rotation. Generalized mild interstitial prominence is probably on the basis of senescent change. No definite congestion or focal airspace consolidation. No definite significant interim change Impression: No definite acute process. Findings as noted
[2018-01-10 12:00] VITALS: BP 146/49
--- NOTE | 2018-01-10 13:42 | Infectious Diseases Prog Note ---
Assessment/Plan Assessment/Plan A: ASSESSMENT: The patient is an 87-year-old female with, COPD /bronchitis. Chest x-ray, NAPD. Leukocytosis (the patient is on the steroids), SP NEG HIV and hepatitis panel Positive urine culture with mixed gram negative organisms, no clinical significance. Ejection fraction is 60%. Thrombocytopenia, improving. Asthma. Dementia. Hypertension. GERD. History of breast cancer. Osteoarthritis. Depression. Anxiety. PLAN: continue the patient on Levaquin day 4 /. Monitor CBC. Monitor BMP. Monitor chest x-ray. Monitor cultures (blood). Subjective Constitutional: Denies: no symptoms, fever, chills, fatigue, anorexia, drenching sweats, other Allergies: Coded Allergies: No Known Allergies (Verified , 06/07/09) Subjective Afebrile Objective Vital Signs Last 24 Hour Vital Signs Date Time Temp Pulse Resp B/P (MAP) Pulse Ox O2 Delivery O2 Flow Rate FiO2 01/10/18 12:46 103 146/49 01/10/18 12:00 99.5 103 20 146/49 94 99.5 01/10/18 11:11 98 20 99 Nasal Cannula 2.0 28 01/10/18 11:01 92 22 97 Nasal Cannula 3.0 32 01/10/18 09:46 102 126/53 01/10/18 08:00 98.1 102 20 126/53 97 98.1 01/10/18 06:55 99 22 99 Nasal Cannula 3.0 32 01/10/18 06:48 Nasal Cannula 3.0 32 01/10/18 06:48 97 Nasal Cannula 3.0 32 01/10/18 06:44 97 22 97 Nasal Cannula 3.0 32 01/10/18 04:00 Nasal Cannula 3.0 01/10/18 04:00 97.9 108 19 148/72 94 97.9 01/10/18 02:42 87 22 99 Nasal Cannula 3.0 32 01/10/18 02:36 82 20 97 Nasal Cannula 3.0 32 01/10/18 00:00 98.1 98 18 146/69 98 98.1 01/10/18 00:00 Nasal Cannula 3.0 01/09/18 23:10 91 20 99 Nasal Cannula 3.0 32 01/09/18 23:02 89 22 96 Nasal Cannula 3.0 32 01/09/18 20:00 Nasal Cannula 3.0 01/09/18 20:00 98.1 99 18 148/61 98 98.1 01/09/18 19:17 102 22 99 Nasal Cannula 3.0 32 01/09/18 19:09 105 22 97 Nasal Cannula 3.0 32 01/09/18 17:45 95 140/55 01/09/18 16:00 97.8 95 18 140/55 97 97.8 01/09/18 15:13 92 20 99 Nasal Cannula 3.0 32 01/09/18 15:06 90 20 97 Nasal Cannula 3.0 Height (Feet): 5 Height (Inches): 2.00 Weight (Pounds): 170 HEENT: anicteric Respiratory/Chest: normal breath sounds Cardiovascular: regular rhythm Abdomen: soft, non tender Laboratory Tests Test 01/10/18 06:10 White Blood Count 10.4 K/UL (4.8-10.8) Red Blood Count 3.46 M/UL (4.20-5.40) L Hemoglobin 9.2 G/DL (12.0-16.0) L Hematocrit 28.9 % (37.0-47.0) L Mean Corpuscular Volume 84 FL (80-99) Mean Corpuscular Hemoglobin 26.5 PG (27.0-31.0) L Mean Corpuscular Hemoglobin Concent 31.8 G/DL (32.0-36.0) L Red Cell Distribution Width 13.4 % (11.6-14.8) Platelet Count 184 K/UL (150-450) Mean Platelet Volume 6.3 FL (6.5-10.1) L Neutrophils (%) (Auto) 72.0 % (45.0-75.0) Lymphocytes (%) (Auto) 14.7 % (20.0-45.0) L Monocytes (%) (Auto) 11.3 % (1.0-10.0) H Eosinophils (%) (Auto) 1.5 % (0.0-3.0) Basophils (%) (Auto) 0.5 % (0.0-2.0) Sodium Level 138 MMOL/L (136-145) Potassium Level 3.8 MMOL/L (3.5-5.1) Chloride Level 101 MMOL/L (98-107) Carbon Dioxide Level 30 MMOL/L (21-32) Anion Gap 7 mmol/L (5-15) Blood Urea Nitrogen 20 mg/dL (7-18) H Creatinine 0.9 MG/DL (0.55-1.30) Estimat Glomerular Filtration Rate mL/min (>60) Glucose Level 99 MG/DL (74-106) Calcium Level 8.5 MG/DL (8.5-10.1) Total Bilirubin 0.3 MG/DL (0.2-1.0) Aspartate Amino Transf (AST/SGOT) 26 U/L (15-37) Alanine Aminotransferase (ALT/SGPT) 23 U/L (12-78) Alkaline Phosphatase 42 U/L (46-116) L Pro-B-Type Natriuretic Peptide 1722 pg/mL (0-125) H Total Protein 7.4 G/DL (6.4-8.2) Albumin 3.3 G/DL (3.4-5.0) L Globulin 4.1 g/dL Albumin/Globulin Ratio 0.8 (1.0-2.7) L Current Medications Medications (Trade) Dose Ordered Sig/Marce Route PRN Reason Start Time Stop Time Status Last Admin Dose Admin Acetaminophen (Tylenol) 650 mg Q4H PRN ORAL T>100.5 01/09/18 16:00 02/05/18 15:59 Albuterol/ Ipratropium (Albuterol/ Ipratropium) 3 ml Q4HRT HHN 01/09/18 19:00 01/14/18 18:59 01/10/18 11:01 Amlodipine Besylate (Norvasc) 5 mg TID ORAL 01/09/18 18:00 02/06/18 08:59 01/10/18 12:46 Clonidine HCl (Catapres Tab) 0.1 mg Q4H PRN ORAL sbp more than 160 01/09/18 16:00 02/05/18 15:59 Dextrose (Dextrose 50%) 25 ml PRN IV Hypoglycemia 01/09/18 16:00 02/08/18 15:59 Dextrose (Dextrose 50%) 50 ml PRN IV hypoglycemia 01/09/18 16:00 02/08/18 15:59 Donepezil HCl (Aricept) 10 mg DAILY ORAL 01/10/18 09:00 02/06/18 08:59 01/10/18 09:46 Heparin Sodium (Porcine) (Heparin 5000 units/ml) 5,000 units EVERY 12 HOURS SUBQ 01/09/18 21:00 02/05/18 20:59 01/10/18 09:45 Iron Sucrose 100 mg/Sodium Chloride 60 ml @ 240 mls/hr BEDTIME IV 01/09/18 21:00 01/12/18 21:14 01/09/18 20:49 Levofloxacin 100 ml @ 100 mls/hr Q24H IVPB 01/10/18 12:00 01/14/18 11:59 01/10/18 12:45 Levothyroxine Sodium (Synthroid) 50 mcg ACBREAKFAST ORAL 01/10/18 06:30 02/06/18 06:29 01/10/18 06:09 Lorazepam (Ativan 2mg/ml 1ml) 0.5 mg Q4H PRN IV For Anxiety 01/09/18 16:00 01/13/18 15:59 Methylprednisolone Sodium Succinate (Solu-MEDROL) 60 mg DAILY IV 01/10/18 09:00 02/05/18 17:59 01/10/18 09:44 Nitroglycerin (Ntg) 0.4 mg Q5M X 3 DOSES PRN SL Prn Chest Pain 01/09/18 15:45 02/05/18 15:59 Ondansetron HCl (Zofran) 4 mg Q6H PRN IVP Nausea & Vomiting 01/09/18 16:00 02/05/18 15:59 Paroxetine HCl (Paxil) 20 mg DAILY ORAL 01/10/18 09:00 02/06/18 08:59 01/10/18 09:45 Primidone (Mysoline) 50 mg DAILY ORAL 01/10/18 09:00 02/06/18 08:59 01/10/18 09:46 Promethazine HCl/ Codeine (Phenergan with Codeine) 5 ml Q6H PRN ORAL cough 01/09/18 16:00 02/05/18 15:59 Temazepam (Restoril) 15 mg HSPRN PRN ORAL Insomnia 01/09/18 21:00 01/13/18 20:59 01/09/18 21:08 Jonathan Amos MD January 10, 2018 13:42
--- NOTE | 2018-01-10 14:17 | Pulmonology Progress Note ---
Assessment/Plan Problems: (1) Acute respiratory failure (2) Status asthmaticus (3) Depression (4) Hypertension (5) History of asthma (6) Dementia Assessment/Plan improving no sputum cultures yet, Urine has mixed organism, Blood cultures are negative. decrease steroids to qd, 40 daily continue abx, levofloxacin titrate fio2 to sat of 92% still a little wheezing dc planning soon dvt prophylaxis Subjective ROS Limited/Unobtainable: No Interval Events: less short of breath, less cough Allergies: Coded Allergies: No Known Allergies (Verified , 06/07/09) Objective Last 24 Hour Vital Signs Date Time Temp Pulse Resp B/P (MAP) Pulse Ox O2 Delivery O2 Flow Rate FiO2 01/10/18 12:46 103 146/49 01/10/18 12:00 99.5 103 20 146/49 94 99.5 01/10/18 11:11 98 20 99 Nasal Cannula 2.0 28 01/10/18 11:01 92 22 97 Nasal Cannula 3.0 32 01/10/18 09:46 102 126/53 01/10/18 08:00 98.1 102 20 126/53 97 98.1 01/10/18 06:55 99 22 99 Nasal Cannula 3.0 32 01/10/18 06:48 Nasal Cannula 3.0 32 01/10/18 06:48 97 Nasal Cannula 3.0 32 01/10/18 06:44 97 22 97 Nasal Cannula 3.0 32 01/10/18 04:00 Nasal Cannula 3.0 01/10/18 04:00 97.9 108 19 148/72 94 97.9 01/10/18 02:42 87 22 99 Nasal Cannula 3.0 32 01/10/18 02:36 82 20 97 Nasal Cannula 3.0 32 01/10/18 00:00 98.1 98 18 146/69 98 98.1 01/10/18 00:00 Nasal Cannula 3.0 01/09/18 23:10 91 20 99 Nasal Cannula 3.0 32 01/09/18 23:02 89 22 96 Nasal Cannula 3.0 32 01/09/18 20:00 Nasal Cannula 3.0 01/09/18 20:00 98.1 99 18 148/61 98 98.1 01/09/18 19:17 102 22 99 Nasal Cannula 3.0 32 01/09/18 19:09 105 22 97 Nasal Cannula 3.0 32 01/09/18 17:45 95 140/55 01/09/18 16:00 97.8 95 18 140/55 97 97.8 01/09/18 15:13 92 20 99 Nasal Cannula 3.0 32 01/09/18 15:06 90 20 97 Nasal Cannula 3.0 Intake and Output 01/09/18 01/10/18 19:00 07:00 Intake Total 2403 ml 420 ml Balance 2403 ml 420 ml Intake Oral 2403 ml 360 ml IV Total 60 ml # Voids 3 General Appearance: WD/WN HEENT: normocephalic Respiratory/Chest: crackles/rales Breasts: no masses Cardiovascular: normal peripheral pulses Abdomen: no organomegaly Genitourinary: normal external genitalia Extremities: no cyanosis, no clubbing Skin: no rash Laboratory Tests 01/10/18 06:10: White Blood Count 10.4, Red Blood Count 3.46L, Hemoglobin 9.2L, Hematocrit 28.9L , Mean Corpuscular Volume 84, Mean Corpuscular Hemoglobin 26.5L, Mean Corpuscular Hemoglobin Concent 31.8L, Red Cell Distribution Width 13.4, Platelet Count 184, Mean Platelet Volume 6.3L, Neutrophils (%) (Auto) 72.0, Lymphocytes (%) (Auto) 14.7L, Monocytes (%) (Auto) 11.3H, Eosinophils (%) (Auto ) 1.5, Basophils (%) (Auto) 0.5, Sodium Level 138, Potassium Level 3.8, Chloride Level 101, Carbon Dioxide Level 30, Anion Gap 7, Blood Urea Nitrogen 20H, Creatinine 0.9, Estimat Glomerular Filtration Rate , Glucose Level 99, Calcium Level 8.5, Total Bilirubin 0.3, Aspartate Amino Transf (AST/SGOT) 26, Alanine Aminotransferase (ALT/SGPT) 23, Alkaline Phosphatase 42L, Pro-B-Type Natriuretic Peptide 1722H, Total Protein 7.4, Albumin 3.3L, Globulin 4.1, Albumin/Globulin Ratio 0.8L Current Medications Medications (Trade) Dose Ordered Sig/Marce Route PRN Reason Start Time Stop Time Status Last Admin Dose Admin Acetaminophen (Tylenol) 650 mg Q4H PRN ORAL T>100.5 01/09/18 16:00 02/05/18 15:59 Albuterol/ Ipratropium (Albuterol/ Ipratropium) 3 ml Q4HRT HHN 01/09/18 19:00 01/14/18 18:59 01/10/18 11:01 Amlodipine Besylate (Norvasc) 5 mg TID ORAL 01/09/18 18:00 02/06/18 08:59 01/10/18 12:46 Clonidine HCl (Catapres Tab) 0.1 mg Q4H PRN ORAL sbp more than 160 01/09/18 16:00 02/05/18 15:59 Dextrose (Dextrose 50%) 25 ml PRN IV Hypoglycemia 01/09/18 16:00 02/08/18 15:59 Dextrose (Dextrose 50%) 50 ml PRN IV hypoglycemia 01/09/18 16:00 02/08/18 15:59 Donepezil HCl (Aricept) 10 mg DAILY ORAL 01/10/18 09:00 02/06/18 08:59 01/10/18 09:46 Heparin Sodium (Porcine) (Heparin 5000 units/ml) 5,000 units EVERY 12 HOURS SUBQ 01/09/18 21:00 02/05/18 20:59 01/10/18 09:45 Iron Sucrose 100 mg/Sodium Chloride 60 ml @ 240 mls/hr BEDTIME IV 01/09/18 21:00 01/12/18 21:14 01/09/18 20:49 Levofloxacin 100 ml @ 100 mls/hr Q24H IVPB 01/10/18 12:00 01/14/18 11:59 01/10/18 12:45 Levothyroxine Sodium (Synthroid) 50 mcg ACBREAKFAST ORAL 01/10/18 06:30 02/06/18 06:29 01/10/18 06:09 Lorazepam (Ativan 2mg/ml 1ml) 0.5 mg Q4H PRN IV For Anxiety 01/09/18 16:00 01/13/18 15:59 Methylprednisolone Sodium Succinate (Solu-MEDROL) 60 mg DAILY IV 01/10/18 09:00 02/05/18 17:59 01/10/18 09:44 Nitroglycerin (Ntg) 0.4 mg Q5M X 3 DOSES PRN SL Prn Chest Pain 01/09/18 15:45 02/05/18 15:59 Ondansetron HCl (Zofran) 4 mg Q6H PRN IVP Nausea & Vomiting 01/09/18 16:00 02/05/18 15:59 Paroxetine HCl (Paxil) 20 mg DAILY ORAL 01/10/18 09:00 02/06/18 08:59 01/10/18 09:45 Primidone (Mysoline) 50 mg DAILY ORAL 01/10/18 09:00 02/06/18 08:59 01/10/18 09:46 Promethazine HCl/ Codeine (Phenergan with Codeine) 5 ml Q6H PRN ORAL cough 01/09/18 16:00 02/05/18 15:59 Temazepam (Restoril) 15 mg HSPRN PRN ORAL Insomnia 01/09/18 21:00 01/13/18 20:59 01/09/18 21:08 Yeyo Moon MD January 10, 2018 14:17
--- NOTE | 2018-01-10 15:33 | General Progress Note ---
Assessment/Plan Problem List: (1) COPD exacerbation ICD Codes: J44.1 - Chronic obstructive pulmonary disease with (acute) exacerbation SNOMED: 755120535 (2) UTI (urinary tract infection) ICD Codes: N39.0 - Urinary tract infection, site not specified SNOMED: 86981942 Qualifiers: (3) Dyspnea ICD Codes: R06.00 - Dyspnea, unspecified SNOMED: 446334536 Qualifiers: (4) Dementia ICD Codes: F03.90 - Unspecified dementia without behavioral disturbance SNOMED: 82619303 (5) Hypertension ICD Codes: I10 - Essential (primary) hypertension SNOMED: 38818682 (6) Acute respiratory failure ICD Codes: J96.00 - Acute respiratory failure, unspecified whether with hypoxia or hypercapnia SNOMED: 34391114 (7) Shortness of breath ICD Codes: R06.02 - Shortness of breath SNOMED: 604527726 Status: stable, progressing Assessment/Plan o2 pulm tx abx ot pt diet cbc bmp am dc plan w hh if clear Subjective Constitutional: Reports: weakness Allergies: Coded Allergies: No Known Allergies (Verified , 06/07/09) All Systems: reviewed and negative except above Subjective o2nc sl sob Objective Last 24 Hour Vital Signs Date Time Temp Pulse Resp B/P (MAP) Pulse Ox O2 Delivery O2 Flow Rate FiO2 01/10/18 15:11 94 18 99 Nasal Cannula 2.0 28 01/10/18 15:01 94 22 95 Nasal Cannula 2.0 28 01/10/18 12:46 103 146/49 01/10/18 12:00 99.5 103 20 146/49 94 99.5 01/10/18 11:11 98 20 99 Nasal Cannula 2.0 28 01/10/18 11:01 92 22 97 Nasal Cannula 3.0 32 01/10/18 09:46 102 126/53 01/10/18 08:00 98.1 102 20 126/53 97 98.1 01/10/18 06:55 99 22 99 Nasal Cannula 3.0 32 01/10/18 06:48 Nasal Cannula 3.0 32 01/10/18 06:48 97 Nasal Cannula 3.0 32 01/10/18 06:44 97 22 97 Nasal Cannula 3.0 32 01/10/18 04:00 Nasal Cannula 3.0 01/10/18 04:00 97.9 108 19 148/72 94 97.9 01/10/18 02:42 87 22 99 Nasal Cannula 3.0 32 01/10/18 02:36 82 20 97 Nasal Cannula 3.0 32 01/10/18 00:00 98.1 98 18 146/69 98 98.1 01/10/18 00:00 Nasal Cannula 3.0 01/09/18 23:10 91 20 99 Nasal Cannula 3.0 32 01/09/18 23:02 89 22 96 Nasal Cannula 3.0 32 01/09/18 20:00 Nasal Cannula 3.0 01/09/18 20:00 98.1 99 18 148/61 98 98.1 01/09/18 19:17 102 22 99 Nasal Cannula 3.0 32 01/09/18 19:09 105 22 97 Nasal Cannula 3.0 32 01/09/18 17:45 95 140/55 01/09/18 16:00 97.8 95 18 140/55 97 97.8 Intake and Output 01/09/18 01/10/18 19:00 07:00 Intake Total 2403 ml 420 ml Balance 2403 ml 420 ml Intake Oral 2403 ml 360 ml IV Total 60 ml # Voids 3 Laboratory Tests 01/10/18 06:10: White Blood Count 10.4, Red Blood Count 3.46L, Hemoglobin 9.2L, Hematocrit 28.9L , Mean Corpuscular Volume 84, Mean Corpuscular Hemoglobin 26.5L, Mean Corpuscular Hemoglobin Concent 31.8L, Red Cell Distribution Width 13.4, Platelet Count 184, Mean Platelet Volume 6.3L, Neutrophils (%) (Auto) 72.0, Lymphocytes (%) (Auto) 14.7L, Monocytes (%) (Auto) 11.3H, Eosinophils (%) (Auto ) 1.5, Basophils (%) (Auto) 0.5, Sodium Level 138, Potassium Level 3.8, Chloride Level 101, Carbon Dioxide Level 30, Anion Gap 7, Blood Urea Nitrogen 20H, Creatinine 0.9, Estimat Glomerular Filtration Rate , Glucose Level 99, Calcium Level 8.5, Total Bilirubin 0.3, Aspartate Amino Transf (AST/SGOT) 26, Alanine Aminotransferase (ALT/SGPT) 23, Alkaline Phosphatase 42L, Pro-B-Type Natriuretic Peptide 1722H, Total Protein 7.4, Albumin 3.3L, Globulin 4.1, Albumin/Globulin Ratio 0.8L Height (Feet): 5 Height (Inches): 2.00 Weight (Pounds): 170 General Appearance: lethargic EENT: normal ENT inspection Neck: normal alignment Cardiovascular: normal peripheral pulses, normal rate, regular rhythm Respiratory/Chest: chest wall non-tender, decreased breath sounds Abdomen: normal bowel sounds, non tender, soft Extremities: normal inspection Edema: no edema noted Arm (L), no edema noted Arm (R), no edema noted Leg (L), no edema noted Leg (R), no edema noted Pedal (L), no edema noted Pedal (R), no edema noted Generalized Neurologic: motor weakness Skin: normal pigmentation, warm/dry Fausto Ruiz DO January 10, 2018 15:33
[2018-01-10 16:00] VITALS: BP 137/46
--- NOTE | 2018-01-10 19:23 | Neurology Progress Note ---
Interim History Interim History Interim History Ms. Fitzgerald feels much better today. She is in excellent spirits. She tells me she is going home today but her nurse tells me it is not correct. She is not wheezing today. The mind is clearer. She continues to be cognitively impoverished. She has not been out of bed yet. Review of Systems Neuro Review of Systems Benign. Objective Physical Exam Last Vital Signs Date Time Temp Pulse Resp B/P (MAP) Pulse Ox O2 Delivery O2 Flow Rate FiO2 01/10/18 17:12 104 137/46 01/10/18 16:00 98.1 20 96 98.1 01/10/18 15:11 Nasal Cannula 2.0 28 Laboratory Tests Test 01/10/18 06:10 White Blood Count 10.4 K/UL (4.8-10.8) Red Blood Count 3.46 M/UL (4.20-5.40) L Hemoglobin 9.2 G/DL (12.0-16.0) L Hematocrit 28.9 % (37.0-47.0) L Mean Corpuscular Volume 84 FL (80-99) Mean Corpuscular Hemoglobin 26.5 PG (27.0-31.0) L Mean Corpuscular Hemoglobin Concent 31.8 G/DL (32.0-36.0) L Red Cell Distribution Width 13.4 % (11.6-14.8) Platelet Count 184 K/UL (150-450) Mean Platelet Volume 6.3 FL (6.5-10.1) L Neutrophils (%) (Auto) 72.0 % (45.0-75.0) Lymphocytes (%) (Auto) 14.7 % (20.0-45.0) L Monocytes (%) (Auto) 11.3 % (1.0-10.0) H Eosinophils (%) (Auto) 1.5 % (0.0-3.0) Basophils (%) (Auto) 0.5 % (0.0-2.0) Sodium Level 138 MMOL/L (136-145) Potassium Level 3.8 MMOL/L (3.5-5.1) Chloride Level 101 MMOL/L (98-107) Carbon Dioxide Level 30 MMOL/L (21-32) Anion Gap 7 mmol/L (5-15) Blood Urea Nitrogen 20 mg/dL (7-18) H Creatinine 0.9 MG/DL (0.55-1.30) Estimat Glomerular Filtration Rate mL/min (>60) Glucose Level 99 MG/DL (74-106) Calcium Level 8.5 MG/DL (8.5-10.1) Total Bilirubin 0.3 MG/DL (0.2-1.0) Aspartate Amino Transf (AST/SGOT) 26 U/L (15-37) Alanine Aminotransferase (ALT/SGPT) 23 U/L (12-78) Alkaline Phosphatase 42 U/L (46-116) L Pro-B-Type Natriuretic Peptide 1722 pg/mL (0-125) H Total Protein 7.4 G/DL (6.4-8.2) Albumin 3.3 G/DL (3.4-5.0) L Globulin 4.1 g/dL Albumin/Globulin Ratio 0.8 (1.0-2.7) L Neurologic Exam Objective PHYSICAL EXAMINATION: GENERAL: She is a well-developed, well-nourished, obese, lady, lying in bed, in no acute distress. HEAD: Normocephalic and atraumatic. EENT: Examination benign. NECK: No neck rigidity was observed. NEUROLOGIC EXAMINATION: MENTAL STATUS EXAMINATION: She was awake and alert. She was oriented to self only. She had no idea where she was or what the date was. She was able to recall 3/3 words immediately, but could not remember any of them in 1 minute and 3 minutes. She was unable to tell me who the present President was and who prior presidents were. Her mathematical skills were impaired. Her visuospatial function was also impaired. SPEECH: She had no dysarthria. LANGUAGE: Could not be tested adequately. CRANIAL NERVE EXAMINATION: II: The visual lugo were intact on confrontation testing. III, IV & : The external ocular movements were full and the pupils 3 mm in diameter, equal, round, regular, and reactive to light. V: She had normal facial sensations and the temporales, masseters, and pterygoids functioned normally. VII: She had normal facial expressions and no facial asymmetry. VIII: She was able to hear and had no nystagmus. IX & X: The gag reflex was present.. XI: The sternocleidomastoids and trapezii did function. XII: The tongue was in the midline. MOTOR SYSTEM: The tone was normal in all four extremities. Examination of muscle mass revealed no focal wasting. Examination of power revealed G 5/5 power with some generalized give-way weakness. SENSORY EXAMINATION: She had intact sensations to light touch. REFLEXES: Trace+ and bilaterally symmetrical at the biceps, triceps, brachioradialis, and knees. 0 at both ankles. The plantar responses were flexor bilaterally. STANCE & GAIT: Could not be tested. Impression/Recommendations Diagnostic Impression 1. Ms. Penny Fitzgerald is an 87-year-old, right-handed, lady, who does have a past history of hypertension, gastroesophageal reflux disease, essential tremor, asthma, breast cancer, and dementia, who was hospitalized for status asthmaticus. Of note is that, for the last few days, she has had a cough productive of sputum. 2. She feels much better today. She is in excellent spirits. She tells me she is going home today but her nurse tells me it is not correct. She is not wheezing today. The mind is clearer. She continues to be cognitively impoverished. She has not been out of bed yet. 3. On neurological examination, at this time, she does demonstrate problems with orientation, recent and remote memory, visuospatial function, and higher cognitive function. She also exhibits mild generalized give-way weakness, globally diminished deep tendon reflexes, a 7-8 Hz tremor involving her hands, and inability to test stance and gait. 4. Laboratory data obtained on my initial evaluation revealed that her WBC count is elevated to 13,900 and her hemoglobin is low at 9.8. Her chemistry panel reveals a sodium that is low at 129, chloride low at 97, BUN elevated to 22, and glucose elevated to 153. The urinalysis reveals 2+ leukocyte esterase, 2 to 4 red blood cells, and 10 to 15 white blood cells per high-power field. In addition, many urinary bacteria were also seen in the urine. 5. The patient's history and neurological examination are most compatible with an underlying primary degenerative dementia most probably Alzheimer disease with a superimposed encephalopathy. The encephalopathy is most probably due to ongoing infectious processes involving the lungs and the urinary tract infection. Recommendations 1. Continue present management. 2. Treatment of acute infectious processes. 3. Treatment of pulmonary processes as per Dr. Moon. 4. Continue Aricept for memory stabilization. 5. Can be discharged from a neurologic point of view. Kamaljit Figueroa M.D., M.S.P.H. KAMALJIT FIGUEROA January 10, 2018 19:23
[2018-01-10 20:00] VITALS: BP 135/58
[2018-01-10] MEDS: Iron Sucrose 100 MG in NS 55 ML IV SCH (21:04)
--- NOTE | 2018-01-10 23:04 | Cardiology Progress Note ---
Assessment/Plan Assessment/Plan 1. Dyspnea likely due to her underlying asthma/COPD. 2. Mild aortic stenosis. 3. HTN 4. Moderate pulmonary HTN. Subjective Subjective Sinus tachycardia at 110. On NC 2 lit Objective Last 24 Hour Vital Signs Date Time Temp Pulse Resp B/P (MAP) Pulse Ox O2 Delivery O2 Flow Rate FiO2 01/10/18 20:00 Nasal Cannula 3.0 01/10/18 20:00 97.6 110 20 135/58 96 97.6 01/10/18 19:53 104 20 99 Nasal Cannula 2.0 28 01/10/18 19:43 97 Nasal Cannula 2.0 28 01/10/18 19:43 101 20 97 Nasal Cannula 2.0 28 01/10/18 19:43 Nasal Cannula 2.0 28 01/10/18 17:12 104 137/46 01/10/18 16:00 98.1 104 20 137/46 96 98.1 01/10/18 15:11 94 18 99 Nasal Cannula 2.0 28 01/10/18 15:01 94 22 95 Nasal Cannula 2.0 28 01/10/18 12:46 103 146/49 01/10/18 12:00 99.5 103 20 146/49 94 99.5 01/10/18 11:11 98 20 99 Nasal Cannula 2.0 28 01/10/18 11:01 92 22 97 Nasal Cannula 3.0 32 01/10/18 09:46 102 126/53 01/10/18 08:00 98.1 102 20 126/53 97 98.1 01/10/18 06:55 99 22 99 Nasal Cannula 3.0 32 01/10/18 06:48 Nasal Cannula 3.0 32 01/10/18 06:48 97 Nasal Cannula 3.0 32 01/10/18 06:44 97 22 97 Nasal Cannula 3.0 32 01/10/18 04:00 Nasal Cannula 3.0 01/10/18 04:00 97.9 108 19 148/72 94 97.9 01/10/18 02:42 87 22 99 Nasal Cannula 3.0 32 01/10/18 02:36 82 20 97 Nasal Cannula 3.0 32 01/10/18 00:00 98.1 98 18 146/69 98 98.1 01/10/18 00:00 Nasal Cannula 3.0 01/09/18 23:10 91 20 99 Nasal Cannula 3.0 32 01/09/18 23:02 89 22 96 Nasal Cannula 3.0 32 Intake and Output 01/09/18 01/10/18 19:00 07:00 Intake Total 2403 ml 420 ml Balance 2403 ml 420 ml Intake Oral 2403 ml 360 ml IV Total 60 ml # Voids 3 2D Echo: LVEF 60%, Mild AR, RVSP 49 mmHg Laboratory Tests Test 01/10/18 06:10 White Blood Count 10.4 K/UL (4.8-10.8) Red Blood Count 3.46 M/UL (4.20-5.40) L Hemoglobin 9.2 G/DL (12.0-16.0) L Hematocrit 28.9 % (37.0-47.0) L Mean Corpuscular Volume 84 FL (80-99) Mean Corpuscular Hemoglobin 26.5 PG (27.0-31.0) L Mean Corpuscular Hemoglobin Concent 31.8 G/DL (32.0-36.0) L Red Cell Distribution Width 13.4 % (11.6-14.8) Platelet Count 184 K/UL (150-450) Mean Platelet Volume 6.3 FL (6.5-10.1) L Neutrophils (%) (Auto) 72.0 % (45.0-75.0) Lymphocytes (%) (Auto) 14.7 % (20.0-45.0) L Monocytes (%) (Auto) 11.3 % (1.0-10.0) H Eosinophils (%) (Auto) 1.5 % (0.0-3.0) Basophils (%) (Auto) 0.5 % (0.0-2.0) Sodium Level 138 MMOL/L (136-145) Potassium Level 3.8 MMOL/L (3.5-5.1) Chloride Level 101 MMOL/L (98-107) Carbon Dioxide Level 30 MMOL/L (21-32) Anion Gap 7 mmol/L (5-15) Blood Urea Nitrogen 20 mg/dL (7-18) H Creatinine 0.9 MG/DL (0.55-1.30) Estimat Glomerular Filtration Rate mL/min (>60) Glucose Level 99 MG/DL (74-106) Calcium Level 8.5 MG/DL (8.5-10.1) Total Bilirubin 0.3 MG/DL (0.2-1.0) Aspartate Amino Transf (AST/SGOT) 26 U/L (15-37) Alanine Aminotransferase (ALT/SGPT) 23 U/L (12-78) Alkaline Phosphatase 42 U/L (46-116) L Pro-B-Type Natriuretic Peptide 1722 pg/mL (0-125) H Total Protein 7.4 G/DL (6.4-8.2) Albumin 3.3 G/DL (3.4-5.0) L Globulin 4.1 g/dL Albumin/Globulin Ratio 0.8 (1.0-2.7) L Objective HEENT: Normocephalic, atraumatic, Pupils are equal, round and reactive to light and accommodation, Extraocular movement intact. NECK: No JVP, no carotid bruit. LUNGS: Expiratory wheezing. CARDIAC: Regular rate and rhythm. S1 and S2. 2/6 ESM at LSB, no gallops or rubs. ABDOMEN: Soft, nontender, and nondistended, + BS EXTREMITIES: Trace edema, no clubbing or cyanosis. Westley Canchola MD January 10, 2018 23:04
[2018-01-11] VITALS: BP 133/56
[2018-01-11] MEDS: Albuterol/Ipratropium 3ml neb HHN SCH ×3 (03:28→11:06)
[2018-01-11 04:00] VITALS: BP 142/64
[2018-01-11 08:00] VITALS: BP 144/86
[2018-01-11 08:13] LABS: BASOPHILS % (AUTO) 0.5 % (0.0-2.0); EOSINOPHILS % (AUTO) 3.1 % (0.0-3.0); HEMATOCRIT 28.8 % (37.0-47.0); HEMOGLOBIN 9.2 G/DL (12.0-16.0); LYMPHOCYTES % (AUTO) 16.3 % (20.0-45.0); MEAN CORPUSCULAR VOLUME 84 FL (80-99); MONOCYTES % (AUTO) 9.8 % (1.0-10.0); NEUTROPHILS % (AUTO) 70.3 % (45.0-75.0); PLATELET COUNT 203 K/UL (150-450); RED BLOOD COUNT 3.45 M/UL (4.20-5.40); RED CELL DISTRIBUTION WIDTH 13.3 % (11.6-14.8); WHITE BLOOD COUNT 10.9 K/UL (4.8-10.8)
[2018-01-11 08:40] LABS: ANION GAP 3 mmol/L (5-15); BLOOD UREA NITROGEN 16 mg/dL (7-18); CALCIUM 8.5 MG/DL (8.5-10.1); CARBON DIOXIDE 33 MMOL/L (21-32); CHLORIDE 101 MMOL/L (98-107); CREATININE 0.8 MG/DL (0.55-1.30); POTASSIUM 4.2 MMOL/L (3.5-5.1); SODIUM 137 MMOL/L (136-145)
[2018-01-11] MEDS ORDERED: dilTIAZem HCl CD 180mg cap ORAL SCH (09:00)
[2018-01-11] MEDS ORDERED: Solu-MEDROL 125mg Inj IV SCH (09:00)
[2018-01-11] MEDS: Donepezil 10mg tab ORAL SCH (09:06)
[2018-01-11] MEDS: PARoxetine 20mg tab ORAL SCH (09:06)
[2018-01-11] MEDS: Heparin 5000 units/ml inj SUBQ SCH (09:07)
--- NOTE | 2018-01-11 09:41 | Infectious Diseases Prog Note ---
Assessment/Plan Assessment/Plan A: ASSESSMENT: The patient is an 87-year-old female with, COPD /bronchitis. Chest x-ray, NAPD. Leukocytosis (the patient is on the steroids), SP NEG HIV and hepatitis panel urine culture : mixed gram negative organisms, no clinical significance. Ejection fraction is 60%. Thrombocytopenia, improving. Asthma. Dementia. Hypertension. GERD. History of breast cancer. Osteoarthritis. Depression. Anxiety. PLAN: continue the patient on Levaquin day # 5 /. Monitor CBC. Monitor BMP. Monitor chest x-ray. Subjective Allergies: Coded Allergies: No Known Allergies (Verified , 06/07/09) Subjective Afebrile Objective Vital Signs Last 24 Hour Vital Signs Date Time Temp Pulse Resp B/P (MAP) Pulse Ox O2 Delivery O2 Flow Rate FiO2 01/11/18 09:05 144 86/102 01/11/18 08:00 98.2 102 20 144/86 95 98.2 01/11/18 07:13 95 20 97 Room Air 21 01/11/18 07:08 Room Air 21 01/11/18 07:08 93 Room Air 21 01/11/18 07:05 87 20 93 Room Air 21 01/11/18 04:00 97.7 98 19 142/64 95 97.7 01/11/18 04:00 Nasal Cannula 3.0 01/11/18 03:38 83 20 98 Nasal Cannula 2.0 01/11/18 03:28 81 20 96 Nasal Cannula 2.0 28 01/11/18 00:00 Nasal Cannula 3.0 01/11/18 00:00 97.6 98 19 133/56 96 97.6 01/10/18 23:28 86 20 99 Nasal Cannula 2.0 28 01/10/18 23:18 87 20 98 Nasal Cannula 2.0 28 01/10/18 20:00 Nasal Cannula 3.0 01/10/18 20:00 97.6 110 20 135/58 96 97.6 01/10/18 19:53 104 20 99 Nasal Cannula 2.0 01/10/18 19:43 97 Nasal Cannula 2.0 01/10/18 19:43 101 20 97 Nasal Cannula 2.0 28 01/10/18 19:43 Nasal Cannula 2.0 28 01/10/18 17:12 104 137/46 01/10/18 16:00 98.1 104 20 137/46 96 98.1 01/10/18 15:11 94 18 99 Nasal Cannula 2.0 28 01/10/18 15:01 94 22 95 Nasal Cannula 2.0 28 01/10/18 12:46 103 146/49 01/10/18 12:00 99.5 103 20 146/49 94 99.5 01/10/18 11:11 98 20 99 Nasal Cannula 2.0 28 01/10/18 11:01 92 22 97 Nasal Cannula 3.0 32 01/10/18 09:46 102 126/53 Height (Feet): 5 Height (Inches): 2.00 Weight (Pounds): 170 HEENT: mucous membranes moist Respiratory/Chest: no respiratory distress, expiratory wheezing Cardiovascular: regular rhythm Abdomen: no organomegaly Laboratory Tests Test 01/11/18 06:10 White Blood Count 10.9 K/UL (4.8-10.8) H Red Blood Count 3.45 M/UL (4.20-5.40) L Hemoglobin 9.2 G/DL (12.0-16.0) L Hematocrit 28.8 % (37.0-47.0) L Mean Corpuscular Volume 84 FL (80-99) Mean Corpuscular Hemoglobin 26.7 PG (27.0-31.0) L Mean Corpuscular Hemoglobin Concent 31.9 G/DL (32.0-36.0) L Red Cell Distribution Width 13.3 % (11.6-14.8) Platelet Count 203 K/UL (150-450) Mean Platelet Volume 6.0 FL (6.5-10.1) L Neutrophils (%) (Auto) 70.3 % (45.0-75.0) Lymphocytes (%) (Auto) 16.3 % (20.0-45.0) L Monocytes (%) (Auto) 9.8 % (1.0-10.0) Eosinophils (%) (Auto) 3.1 % (0.0-3.0) H Basophils (%) (Auto) 0.5 % (0.0-2.0) Sodium Level 137 MMOL/L (136-145) Potassium Level 4.2 MMOL/L (3.5-5.1) Chloride Level 101 MMOL/L (98-107) Carbon Dioxide Level 33 MMOL/L (21-32) H Anion Gap 3 mmol/L (5-15) L Blood Urea Nitrogen 16 mg/dL (7-18) Creatinine 0.8 MG/DL (0.55-1.30) Estimat Glomerular Filtration Rate mL/min (>60) Glucose Level 97 MG/DL (74-106) Calcium Level 8.5 MG/DL (8.5-10.1) Current Medications Medications (Trade) Dose Ordered Sig/Marce Route PRN Reason Start Time Stop Time Status Last Admin Dose Admin Acetaminophen (Tylenol) 650 mg Q4H PRN ORAL T>100.5 01/09/18 16:00 02/05/18 15:59 Albuterol/ Ipratropium (Albuterol/ Ipratropium) 3 ml Q4HRT HHN 01/09/18 19:00 01/14/18 18:59 01/11/18 07:05 Clonidine HCl (Catapres Tab) 0.1 mg Q4H PRN ORAL sbp more than 160 01/09/18 16:00 02/05/18 15:59 Dextrose (Dextrose 50%) 25 ml PRN IV Hypoglycemia 01/09/18 16:00 02/08/18 15:59 Dextrose (Dextrose 50%) 50 ml PRN IV hypoglycemia 01/09/18 16:00 02/08/18 15:59 Diltiazem HCl (Cardizem CD) 180 mg DAILY ORAL 01/11/18 09:00 02/10/18 08:59 01/11/18 09:05 Donepezil HCl (Aricept) 10 mg DAILY ORAL 01/10/18 09:00 02/06/18 08:59 01/11/18 09:06 Heparin Sodium (Porcine) (Heparin 5000 units/ml) 5,000 units EVERY 12 HOURS SUBQ 01/09/18 21:00 02/05/18 20:59 01/11/18 09:07 Iron Sucrose 100 mg/Sodium Chloride 60 ml @ 240 mls/hr BEDTIME IV 01/09/18 21:00 01/12/18 21:14 01/10/18 21:04 Levofloxacin 100 ml @ 100 mls/hr Q24H IVPB 01/10/18 12:00 01/14/18 11:59 01/10/18 12:45 Levothyroxine Sodium (Synthroid) 50 mcg ACBREAKFAST ORAL 01/10/18 06:30 02/06/18 06:29 01/11/18 05:46 Lorazepam (Ativan 2mg/ml 1ml) 0.5 mg Q4H PRN IV For Anxiety 01/09/18 16:00 01/13/18 15:59 Methylprednisolone Sodium Succinate (Solu-MEDROL) 40 mg DAILY IV 01/11/18 09:00 02/05/18 17:59 01/11/18 09:06 Nitroglycerin (Ntg) 0.4 mg Q5M X 3 DOSES PRN SL Prn Chest Pain 01/09/18 15:45 02/05/18 15:59 Ondansetron HCl (Zofran) 4 mg Q6H PRN IVP Nausea & Vomiting 01/09/18 16:00 02/05/18 15:59 Paroxetine HCl (Paxil) 20 mg DAILY ORAL 01/10/18 09:00 02/06/18 08:59 01/11/18 09:06 Primidone (Mysoline) 50 mg DAILY ORAL 01/10/18 09:00 02/06/18 08:59 01/11/18 09:06 Promethazine HCl/ Codeine (Phenergan with Codeine) 5 ml Q6H PRN ORAL cough 01/09/18 16:00 02/05/18 15:59 Temazepam (Restoril) 15 mg HSPRN PRN ORAL Insomnia 01/09/18 21:00 01/13/18 20:59 01/10/18 21:03 Jonathan Amos MD January 11, 2018 09:41
[2018-01-11 12:00] VITALS: BP 145/63
[2018-01-11] MEDS ORDERED: CARDIZEM CD180 MG ORAL (12:43)
[2018-01-11] MEDS ORDERED: CLONIDINE HCL0.1 MG PO (12:44)
[2018-01-11] MEDS ORDERED: nitro (12:45)
[2018-01-11] MEDS ORDERED: nitroglycerin SL (12:48)
[2018-01-11] MEDS ORDERED: RESTORIL15 MG ORAL (12:48)
[2018-01-11] MEDS ORDERED: NS 275ml ONE (13:46)
--- NOTE | 2018-01-11 15:48 | Pulmonology Progress Note ---
Assessment/Plan Problems: (1) Acute respiratory failure (2) Status asthmaticus (3) Depression (4) Hypertension (5) History of asthma (6) Dementia Assessment/Plan improving no sputum cultures yet, Urine has mixed organism, Blood cultures are negative. decrease steroids to qd, 40 daily continue abx, levofloxacin titrate fio2 to sat of 92% still a little wheezing dc planning soon dvt prophylaxis Subjective Allergies: Coded Allergies: No Known Allergies (Verified , 06/07/09) Objective Last 24 Hour Vital Signs Date Time Temp Pulse Resp B/P (MAP) Pulse Ox O2 Delivery O2 Flow Rate FiO2 01/11/18 12:00 97.9 98 20 145/63 97 97.9 01/11/18 11:13 86 20 96 Nasal Cannula 2.0 28 01/11/18 11:06 85 20 96 Nasal Cannula 2.0 28 01/11/18 09:05 144 86/102 01/11/18 08:00 98.2 102 20 144/86 95 98.2 01/11/18 07:13 95 20 97 Room Air 21 01/11/18 07:08 Room Air 21 01/11/18 07:08 93 Room Air 21 01/11/18 07:05 87 20 93 Room Air 21 01/11/18 04:00 97.7 98 19 142/64 95 97.7 01/11/18 04:00 Nasal Cannula 3.0 01/11/18 03:38 83 20 98 Nasal Cannula 2.0 28 01/11/18 03:28 81 20 96 Nasal Cannula 2.0 28 01/11/18 00:00 Nasal Cannula 3.0 01/11/18 00:00 97.6 98 19 133/56 96 97.6 01/10/18 23:28 86 20 99 Nasal Cannula 2.0 28 01/10/18 23:18 87 20 98 Nasal Cannula 2.0 28 01/10/18 20:00 Nasal Cannula 3.0 01/10/18 20:00 97.6 110 20 135/58 96 97.6 01/10/18 19:53 104 20 99 Nasal Cannula 2.0 28 01/10/18 19:43 97 Nasal Cannula 2.0 28 01/10/18 19:43 101 20 97 Nasal Cannula 2.0 28 01/10/18 19:43 Nasal Cannula 2.0 28 01/10/18 17:12 104 137/46 01/10/18 16:00 98.1 104 20 137/46 96 98.1 Intake and Output 01/10/18 01/11/18 19:00 07:00 Intake Total 580 ml 440 ml Output Total 3 ml Balance 580 ml 437 ml Intake Oral 480 ml 380 ml IV Total 100 ml 60 ml Output Urine Total 3 ml # Voids 5 # Bowel Movements 1 Laboratory Tests 01/11/18 06:10: White Blood Count 10.9H, Red Blood Count 3.45L, Hemoglobin 9.2L, Hematocrit 28.8L, Mean Corpuscular Volume 84, Mean Corpuscular Hemoglobin 26.7L, Mean Corpuscular Hemoglobin Concent 31.9L, Red Cell Distribution Width 13.3, Platelet Count 203, Mean Platelet Volume 6.0L, Neutrophils (%) (Auto) 70.3, Lymphocytes (%) (Auto) 16.3L, Monocytes (%) (Auto) 9.8, Eosinophils (%) (Auto) 3.1H, Basophils (%) (Auto) 0.5, Sodium Level 137, Potassium Level 4.2, Chloride Level 101, Carbon Dioxide Level 33H, Anion Gap 3L, Blood Urea Nitrogen 16, Creatinine 0.8, Estimat Glomerular Filtration Rate , Glucose Level 97, Calcium Level 8.5 Yeyo Moon MD January 11, 2018 15:48
--- NOTE | 2018-01-11 17:06 | Cardiology Progress Note ---
Assessment/Plan Assessment/Plan 1. Dyspnea likely due to her underlying asthma/COPD. Echo reveals LVEF at 60%. 2. Mild aortic stenosis. 3. HTN 4. Moderate pulmonary HTN. Subjective Subjective Transferred to the non-telemetry unit. Objective Last 24 Hour Vital Signs Date Time Temp Pulse Resp B/P (MAP) Pulse Ox O2 Delivery O2 Flow Rate FiO2 01/11/18 12:00 97.9 98 20 145/63 97 97.9 01/11/18 11:13 86 20 96 Nasal Cannula 2.0 28 01/11/18 11:06 85 20 96 Nasal Cannula 2.0 28 01/11/18 09:05 144 86/102 01/11/18 08:00 98.2 102 20 144/86 95 98.2 01/11/18 07:13 95 20 97 Room Air 21 01/11/18 07:08 Room Air 21 01/11/18 07:08 93 Room Air 21 01/11/18 07:05 87 20 93 Room Air 21 01/11/18 04:00 97.7 98 19 142/64 95 97.7 01/11/18 04:00 Nasal Cannula 3.0 01/11/18 03:38 83 20 98 Nasal Cannula 2.0 28 01/11/18 03:28 81 20 96 Nasal Cannula 2.0 28 01/11/18 00:00 Nasal Cannula 3.0 01/11/18 00:00 97.6 98 19 133/56 96 97.6 01/10/18 23:28 86 20 99 Nasal Cannula 2.0 28 01/10/18 23:18 87 20 98 Nasal Cannula 2.0 28 01/10/18 20:00 Nasal Cannula 3.0 01/10/18 20:00 97.6 110 20 135/58 96 97.6 01/10/18 19:53 104 20 99 Nasal Cannula 2.0 28 01/10/18 19:43 97 Nasal Cannula 2.0 28 01/10/18 19:43 101 20 97 Nasal Cannula 2.0 28 01/10/18 19:43 Nasal Cannula 2.0 28 01/10/18 17:12 104 137/46 Intake and Output 01/10/18 01/11/18 19:00 07:00 Intake Total 580 ml 440 ml Output Total 3 ml Balance 580 ml 437 ml Intake Oral 480 ml 380 ml IV Total 100 ml 60 ml Output Urine Total 3 ml # Voids 5 # Bowel Movements 1 2D Echo: LVEF 60%, Mild AR, RVSP 49 mmHg Laboratory Tests Test 01/11/18 06:10 White Blood Count 10.9 K/UL (4.8-10.8) H Red Blood Count 3.45 M/UL (4.20-5.40) L Hemoglobin 9.2 G/DL (12.0-16.0) L Hematocrit 28.8 % (37.0-47.0) L Mean Corpuscular Volume 84 FL (80-99) Mean Corpuscular Hemoglobin 26.7 PG (27.0-31.0) L Mean Corpuscular Hemoglobin Concent 31.9 G/DL (32.0-36.0) L Red Cell Distribution Width 13.3 % (11.6-14.8) Platelet Count 203 K/UL (150-450) Mean Platelet Volume 6.0 FL (6.5-10.1) L Neutrophils (%) (Auto) 70.3 % (45.0-75.0) Lymphocytes (%) (Auto) 16.3 % (20.0-45.0) L Monocytes (%) (Auto) 9.8 % (1.0-10.0) Eosinophils (%) (Auto) 3.1 % (0.0-3.0) H Basophils (%) (Auto) 0.5 % (0.0-2.0) Sodium Level 137 MMOL/L (136-145) Potassium Level 4.2 MMOL/L (3.5-5.1) Chloride Level 101 MMOL/L (98-107) Carbon Dioxide Level 33 MMOL/L (21-32) H Anion Gap 3 mmol/L (5-15) L Blood Urea Nitrogen 16 mg/dL (7-18) Creatinine 0.8 MG/DL (0.55-1.30) Estimat Glomerular Filtration Rate mL/min (>60) Glucose Level 97 MG/DL (74-106) Calcium Level 8.5 MG/DL (8.5-10.1) Objective HEENT: Normocephalic, atraumatic, Pupils are equal, round and reactive to light and accommodation, Extraocular movement intact. NECK: No JVP, no carotid bruit. LUNGS: Expiratory wheezing. CARDIAC: Regular rate and rhythm. S1 and S2. 2/6 ESM at LSB, no gallops or rubs. ABDOMEN: Soft, nontender, and nondistended, + BS EXTREMITIES: Trace edema, no clubbing or cyanosis. Westley Canchola MD January 11, 2018 17:06
--- NOTE | 2018-01-12 12:05 | General Progress Note ---
Assessment/Plan Assessment/Plan # Thrombocytopenia -- > currently resolved, > 50k --> workup has included hepatitis, hiv panel and us of the abdomen which did not show any findings # Anemia of iron deficiency --> monitor --> maintain hgb above 7 --> started on iv iron 100mg x 5 days, finish course # Breast cancer history -- prior history unknown, imaging historically has been reviewed --> is not on any anti-hormonal drugs, obtain further history from family # HTN # GERD # Asthma # Dementia. Subjective Date patient seen: January 11, 2018 Allergies: Coded Allergies: No Known Allergies (Verified , 06/07/09) All Systems: reviewed and negative except above Subjective Pt is stable and medically cleared for discharge. No s/s of acute medical distress Objective have been reviewed Height (Feet): 5 Height (Inches): 2.00 Weight (Pounds): 170 General Appearance: no apparent distress EENT: normal ENT inspection Neck: supple Cardiovascular: normal peripheral pulses Respiratory/Chest: no respiratory distress Ramez Alonzo MD January 12, 2018 12:05
--- NOTE | 2018-01-14 12:57 | Discharge Summary ---
Discharge Summary Discharge Summary _ DATE OF ADMISSION: 01/06/2018 DATE OF DISCHARGE: 01/11/2018 REASON FOR ADMISSION: 87 years old female with past medical history of asthma, hypertension, depression, dementia ,presented to emergency department with chief complaint of dyspnea for few days. She was at [facility] when she started to have respiratory distress with audible wheezing. Patient was giving, breathing treatment and paramedics were called for transfer to emergency room for evaluation. According to financial administration officer ,no fever, no chills, no vomiting. In ED patient was noted to be in respiratory failure and was started on BiPAP. Chest x-ray revealed increased interstitial markings, possibly related to mild pulmonary vascular congestion versus viral/interstitial pneumonitis. Laboratory workup revealed hyponatremia with sodium 129, stable renal parameters, glucose 173 ; troponin negative, proBNP 620. Mild leukocytosis WBC 11.1 ; anemia with hemoglobin 10.7 and hematocrit 32.5, platelets 66. UA with evidence of UTI. Patient was given intravenous steroids, empiric antibiotic , continue BiPAP and transferred to [facility] for further management with diagnoses of status asthmaticus, acute respiratory failure , possible pneumonia, hyponatremia, urinary tract infection. CONSULTANTS: employee relation manager Dr. Canchola neurologist after [facility] Dr. [facility] receptionist Dr. Kim business services sales representative/oncologist Dr. Alonzo [facility]SE: Patient admitted to [facility]. Patient initially was on BiPAP. FiO2 titrated to keep pulse oximetry above 92%. Pulmonary toilet provided around the clock and as needed. Patient started on IV steroids., which gradually tapered as permitted. Patient was on empiric antibiotics. Antitussive provided as needed. Follow-up chest x-ray revealed no acute cardiopulmonary pathology. DVT prophylaxis provided. Echocardiogram revealed preserved ejection fraction of 60% and right ventricular systolic pressure of 49 consistent with moderate pulmonary hypertension. Mild aortic stenosis was noted. Customer Advisor closely followed. According to employee relation manager , dyspnea was likely secondary to underlying bronchospasm and asthma. Blood pressure was managed with calcium channel omaira and remained stable. Neurologist closely followed. Neurologist diagnosed patient with underlying primary degenerative dementia likely Alzheimer's disease with superimposed encephalopathy. Per neurologist encephalopathy was probably due to ongoing infectious process. Aricept was continued. Service Planner closely followed. Urine studies were done. Renal parameters, electrolytes were closely monitored. Nephrotoxins were avoided. Electrolytes were corrected as needed, s/p Kayexalate. Prior to discharge, sodium 137., appeared to be isovolemic hyponatremia. Hyperkalemia resolved. Infectious disease specialist closely followed. HIV and hepatitis panel were negative. Urine culture revealed mixed gram-positive organisms with no clinical significance as per infectious disease specialist conclusion. Follow- up chest x-ray was negative . Blood culture were negative . No evidence of infection . Patient status post treatment with Levaquin for 5 days for asthma exacerbation. Preparation Room Worker closely followed. Anemia workup was consistent with anemia of iron deficiency. Hemoglobin and hematocrit were closely monitored with goal to keep hemoglobin above 7. Patient was on the IV Venofer. Patient initially was with thrombocytopenia. Workup included hepatitis panel, HIV and ultrasound of the abdomen , all of them were negative. Thrombocytopenia resolved. On discharge platelet count 203. Hemoglobin 9.2 hematocrit 28.8 Pain management was addressed. Pain was controlled. Bowel regimen instituted. Supportive therapy provided. Patient was working with physical and occupational therapists. Patient was stable for discharge FINAL DIAGNOSES: Acute respiratory failure requiring BiPAP status asthmaticus bronchitis asthma/COPD hypertension moderate pulmonary hypertension mild aortic stenosis degenerative dementia, probably Alzheimer's type with superimposed encephalopathy osteoarthritis history of breast cancer depression/anxiety isovolemic hyponatremia, resolved GERD iron deficiency anemia thrombocytopenia, resolved hyperkalemia, resolved DISCHARGE MEDICATIONS: See Medication Reconciliation list. DISCHARGE INSTRUCTIONS: Patient was discharged home, Follow-up with a primary care provider in one week. I have been assigned to dictate discharge summary for this account. I was not involved in the patient's management. Latosha Schmidt NP January 14, 2018 12:57
== END 2018-01-11 13:47 | disposition home or self-care (01) | DRG 189 ==
LOC: EDBD 11:06 → EMR 12:00 → 2W 13:51 → MERGE 13:51 → EDBEDREQ 15:48 → 4W 01-09 15:23
PROC: 5A09457 Assistance with Respiratory Ventilation, 24-96 Consecutive Hours, Continuous Positive Airway Pressure (ICD-10-PCS; principal; 2018-01-06)
DX: J96.01 Acute respiratory failure with hypoxia (principal); G93.40 Encephalopathy, unspecified; J45.902 Unspecified asthma with status asthmaticus; E87.1 Hypo-osmolality and hyponatremia; N17.9 Acute kidney failure, unspecified; J44.1 Chronic obstructive pulmonary disease with (acute) exacerbation; F32.9 Major depressive disorder, single episode, unspecified; I10 Essential (primary) hypertension; G30.9 Alzheimer's disease, unspecified; F02.80 Dementia in other diseases classified elsewhere, unspecified severity, without behavioral disturbance, psychotic disturbance, mood disturbance, and anxiety; J40 Bronchitis, not specified as acute or chronic; I27.20 Pulmonary hypertension, unspecified; I35.0 Nonrheumatic aortic (valve) stenosis; M19.90 Unspecified osteoarthritis, unspecified site; Z85.3 Personal history of malignant neoplasm of breast; K21.9 Gastro-esophageal reflux disease without esophagitis; D50.9 Iron deficiency anemia, unspecified; D69.6 Thrombocytopenia, unspecified; E87.5 Hyperkalemia; F41.9 Anxiety disorder, unspecified
CPT/HCPCS: 36415; 36600; 71045; 76700; 80048; 80053; 81003; 82044; 82270; 82378; 82550; 82570; 82607; 82728; 82746; 82784; 82803; 83540; 83550; 83605; 83615; 83735; 83880; 83921; 84133; 84165; 84300; 84443; 84484; 85007; 85025; 85044; 85060; 85610; 85651; 85730; 86300; 86304; 86334; 86703; 86705; 86709; 86803; 87040; 87086; 87340; 93005; 93306; 94640; 94660; 94664; 94760; 99285; 99291; J7620